=== PATIENT | male | born 1950 | race Caucasian/White ===

== ENCOUNTER → 2016-03-03 | Day surgery (SDC) | payer OTHER, BC ==
[2016-03-01 13:19] VITALS: BMI 46.0
[~2016-03-03] VITALS: Ht 172.7 cm; Wt 138.6 kg
[~2016-03-03] MED LIST: AMLO-114 PO; ASPCH81X PO; CLON0.3T PO; CRG125 PO; FRS/80 PO; GLC500 PO; HYDR-4717 PO; HydrALAZINE HCL 20 MG/ML VIAL ONE; INSUINJ8 SC; KETAMINE HCL INJ 50 MG/ML 10 ML VIAL ONE; LABETALOL HCL IV 5 MG/ML 20ML ONE; LIDOCAINE HCL 2% 2 ML VIAL (20MG/ML) ONE; LISI20TA3 PO; METF1TAB53 PO; MISCTAB78 PO; NVLGI SC; PRLSR20 PO; PROPOFOL IV EMULSION 10 MG/ML 20 ML VIAL IV ONE; SIMV20TA2 PO; SODIUM CHLORIDE 0.9% 500ML 500 ML IV ONE; SODIUM CHLORIDE 0.9% INJ 10 ML VIAL ONE; TERA1CAP63 PO
[2016-03-03 08:14] VITALS: Ht 172.7 cm; Wt 138.6 kg
--- NOTE | 2016-03-03 08:40 | Endo History and Physical ---
History & Physical Date of Service: Mar 03, 2016. Chief Complaint: iron def anemia Referring Physician: Dr. Falcon History of Present Illness Occult iron deficiency anemia, for EGD and colonoscopy. Past Medical History Diabetes, Male Genitourinary Prob., Reflux, High Cholesterol, Sleep Apnea, Heart Disease, Hypertension Past Surgical History Hx Cardiac Surgery: No Hx Internal Defibrillator: No Hx Pacemaker: No Hx Abdominal Surgery: Yes (HERNIA REPAIR) Hx of Implantable Prosthesis: No Hx Post-Op Nausea and Vomiting: No Hx Cancer Surgery: No Hx Thoracic Surgery: No Hx Orthopedic: No Hx Urinary Tract Surgery: Yes (TURP) Family History Polyp Social History Smoking Status: Former Smoker Hx Substance Use: No Hx Alcohol Use: No Allergies Coded Allergies: Finasteride (Verified Allergy, Unknown, DIFFICULT BREATHING AND WATER RETENTION, 03/03/16) Current Medications Reported Home Medications Medications Dose Route/Sig Max Daily Dose Days Date Category Osteo Bi-Flex Advanced Do ([facility] Products) 1 Tab Tab 1 Tab PO BID 03/01/16 Reported Catapres (Clonidine Hcl) 0.3 Mg Tab 0.3 Mg PO BID 03/01/16 Reported Apresoline (Hydralazine Hcl) 50 Mg Tab 50 Mg PO BID 03/01/16 Reported Prinivil (Lisinopril) 20 Mg Tab 2 Tabs PO QAM 03/01/16 Reported Lasix (Furosemide) 80 Mg Tab 80 Mg PO QAM 03/01/16 Reported Zocor (Simvastatin) 20 Mg Tab 20 Mg PO HS 01/03/15 Reported Novolin-N (Insulin Human NPH) Susp 50 Units SC BID 01/03/15 Reported Glucophage Ext Rel (Metformin Hcl) 1,000 Mg Tab 1,500 Mg PO QAM 04/12/13 Reported Aspirin Chewable (Aspirin) 81 Mg Chew 81 Mg PO QAM 04/12/13 Reported Hytrin (Terazosin HCl) 10 Mg Cap 10 Mg PO HS 04/12/13 Reported Novolog (Insulin Aspart) Inj 5-15 Units SC BID 04/12/13 Reported Coreg * (Carvedilol) 12.5 Mg Tab 12.5 Mg PO BID 03/03/11 Reported Glucophage * (Metformin HCl) 1,000 Mg Tab 1,000 Mg PO QPM 09/23/07 Reported Prilosec (Omeprazole) 20 Mg Capcr 20 Mg PO HS 09/23/07 Reported Norvasc (Amlodipine Besylate) 10 Mg Tab 10 Mg PO QAM 09/23/07 Reported Vital Signs Weight (Kilograms): 138.64 Height (Feet): 5 Height (Inches): 8 Date Time Temp Pulse Resp B/P Pulse Ox O2 Delivery O2 Flow Rate FiO2 03/03/16 08:28 36.6 65 20 184/91 96 Room Air Physical Exam General Appearance: WD/WN, no apparent distress, + obese Respiratory/Chest: Auscultation: breath sounds normal, no wheezing Cardiovascular: Heart Auscultation: RRR, no murmurs Abdomen: Inspection & Palpation: soft, no tenderness, guarding & rebound Assessment and Plan Cleared for EGD and colonoscopy
--- NOTE | 2016-03-03 08:58 | GI REPORT ---
Procedure Date: 03/03/2016 8:47 AM Procedure: Upper GI endoscopy Indications: Iron deficiency anemia Medicines: Monitored Anesthesia Care Complications: No immediate complications. Estimated blood loss: None. Estimated Blood Loss: Estimated blood loss: none. Procedure: Pre-Anesthesia Assessment: - Prior to the procedure, a History and Physical was performed, and patient medications, allergies and sensitivities were reviewed. The patient's tolerance of previous anesthesia was reviewed. - ASA Grade Assessment: III - A patient with severe systemic disease. After obtaining informed consent, the endoscope was passed under direct vision. Throughout the procedure, the patient's blood pressure, pulse, and oxygen saturations were monitored continuously. The scope was introduced through the mouth, and advanced to the third part of the duodenum. Small bowel enteroscopy was deemed necessary. The upper GI endoscopy was accomplished with ease. The patient tolerated the procedure well. Findings: The upper third of the esophagus, middle third of the esophagus and lower third of the esophagus were normal. The Z-line was regular and was found 44 cm from the incisors. The entire examined stomach was normal. Biopsies were taken with a cold forceps for Helicobacter pylori testing. The examined duodenum was normal. Biopsies for histology were taken with a cold forceps for evaluation of celiac disease. Verification of patient identification for the specimens was done by the physician and nurse using the patient's name, date and medical record number. Impression: - Normal upper third of esophagus, middle third of esophagus and lower third of esophagus. - Z-line regular, 44 cm from the incisors. - Normal stomach. Biopsied. - Normal examined duodenum. Biopsied. Recommendation: - Perform a colonoscopy today. Jesus Ramos M.D. Jesus Ramos MD 03/03/2016 8:57:46 AM This report has been signed electronically. Note Initiated On: 03/03/2016 8:47 AM
--- NOTE | 2016-03-03 09:43 | GI REPORT ---
Procedure Date: 03/03/2016 8:54 AM Procedure: Colonoscopy Indications: Iron deficiency anemia Medicines: Monitored Anesthesia Care Complications: No immediate complications. Estimated blood loss: None. Estimated Blood Loss: Estimated blood loss: none. Procedure: Pre-Anesthesia Assessment: - Prior to the procedure, a History and Physical was performed, and patient medications, allergies and sensitivities were reviewed. The patient's tolerance of previous anesthesia was reviewed. - ASA Grade Assessment: III - A patient with severe systemic disease. After I obtained informed consent, the scope was passed under direct vision. Throughout the procedure, the patient's blood pressure, pulse, and oxygen saturations were monitored continuously. The Scope was introduced through the anus and advanced to the terminal ileum, with identification of the appendiceal orifice and IC valve. The colonoscopy was performed with ease. The patient tolerated the procedure well. The quality of the bowel preparation was excellent. Findings: Multiple medium-mouthed diverticula were found in the sigmoid colon. Impression: - Diverticulosis in the sigmoid colon. - No specimens collected. - The colon was otherwise normal to the terminal ileum with retroflexed views of the colon and terminal ileum. Recommendation: - Consider video capsule endoscopy. - Discharge patient to home (with escort). Jesus Ramos M.D. Jesus Ramos MD 03/03/2016 9:42:50 AM This report has been signed electronically. Note Initiated On: 03/03/2016 8:54 AM
--- NOTE | 2016-03-03 09:46 | Discharge Instructions ---
Endoscopy Patient Instructions Date / Procedure(s) Performed Mar 03, 2016. Colonoscopy, EGD Allergy Information Coded Allergies: Finasteride (Verified Allergy, Unknown, DIFFICULT BREATHING AND WATER RETENTION, 03/03/16) Discharge Date / Findings Mar 03, 2016. Diverticulosis. Normal upper endoscopy. Medication Instructions Stopped Medication(s): Didn't take any medications Restart Stopped Medication(s): Resume all medications today. Provider Instructions Activity Restrictions - No exercising or heavy lifting for 24 hours. - Do not drink alcohol the day of the procedure. - Do not drive a car or operate machinery until the day after the procedure. - Do not make any important decisions or sign important papers in 24 hours after the procedure. Following Day: - Return to full activity which may include returning to work/school. Diet Start your diet with liquids and light foods (jello, soup, juice, toast). Then eat your usual diet if not nauseated. Treatment For Common After Affects For mild abdominal pain, bloating, or excessive gas: - Rest - Eat lightly - Lie on right side Follow-Up Information Follow-up with Dr. Falcon as scheduled Anesthesia Information What You Should Know You have had a procedure that required some medicine to reduce anxiety and discomfort. This treatment is called moderate sedation. After receiving the treatment, you may be sleepy, but you will be able to breathe on your own. The effects of the treatment may last for several hours. Follow these instructions along with Activity/Diet recommendations noted above: * Do NOT do anything where dizziness or clumsiness would be dangerous. * Rest quietly at home today, then you can be up and about tomorrow. * Have a responsible person stay with you the rest of today. * You may have had an I.V. today. If so, you may take the dressing off later today. Recommendations Call your doctor if: * Trouble breathing * Continuous vomiting for more than 24 hours * Temperature above 101 degrees * Severe abdominal pain or bloating * Pain not relieved by pain medicine ordered * There is increased drainage or redness from any incision * A large amount of rectal bleeding greater than 2-3 tablespoons. (If you had a polyp/s removed or have hemorrhoids, a small amount of blood - from the rectum is to be expected.) * You have any unanswered questions or concerns. IN THE EVENT OF A SERIOUS EMERGENCY, GO TO THE NEAREST EMERGENCY ROOM Your discharge instructions were prepared by provider Jesus Ramos. Patient Instructions Signature Page Edmarserena Trinidadwver Patient (or Guardian) Signature/Date: I have read and understand the instructions given to me by my caregivers. Caregiver/RN/Doctor Signature/Date: The above-named patient and/or guardian has received patient instructions on this date. + Original Patient Signature Page (only) stays with chart. Please make copy for patient.
[2016-03-03 10:25] VITALS: BP 175/84; PULSE 62; O2SAT 95
--- NOTE | 2016-03-03 10:50 | Anesthesiology Progress Note ---
Anesthesia Post Op Note Date & Time Mar 03, 2016 at 10:42 Vital Signs Pain Intensity: 0 Vital Signs Past 12 Hours Date Time Temp Pulse Resp B/P Pulse Ox O2 Delivery O2 Flow Rate FiO2 03/03/16 10:25 62 16 175/84 95 Room Air 03/03/16 10:15 62 16 165/81 97 Room Air 03/03/16 10:05 60 16 197/91 97 Room Air 03/03/16 09:51 67 16 188/91 97 Room Air 03/03/16 09:36 71 16 145/43 97 Room Air 03/03/16 08:28 36.6 65 20 184/91 96 Room Air Notes Mental Status: alert / awake / arousable, participated in evaluation Pt Amnestic to Procedure: Yes Nausea / Vomiting: adequately controlled Pain: adequately controlled Airway Patency, RR, SpO2: stable & adequate BP & HR: stable & adequate Hydration State: stable & adequate Anesthetic Complications: no major complications apparent The ptaient is a 65 y/o male with multiple medical problems including HTN and DM who is s/p EGD/colonoscopy with Dr. Ramos. The patient's BP on arrival was elevated at 184/91. He is on multiple antihypertensives and did not take any of them this morning. His BP at home runs in the 150s-160s systolic and his PMD has been working for some time to adjust his medications. The patient did well during the procedure and received 10mg IV Labetalol for his BP. In recovery the patient's BP was initially elevated at 188/91 HR 60s. He took all of his oral antihypertensives from home in recovery. His BP prior to discharge improved to the 160s-170s/80s. He has a BP cuff at home and will check his BP again later today. He was instructed to go to the ED if his BP becomes elevated to the high 180s or greater systolic or diastolic greater that 100. He was also instructed to go to the ED with any chest pain, shortness of breath, lightheaded or dizziness or severe headache. He understands and agrees.
== END | disposition home or self-care (01) ==
LOC: C.GI 07:42
PROVIDERS: ATTEND Internal Medicine Gastroenterology
DX: D50.9 Iron deficiency anemia, unspecified (principal); K57.30 Diverticulosis of large intestine without perforation or abscess without bleeding; K21.9 Gastro-esophageal reflux disease without esophagitis; E11.9 Type 2 diabetes mellitus without complications; E78.00 Pure hypercholesterolemia, unspecified; G47.30 Sleep apnea, unspecified; I10 Essential (primary) hypertension; I51.9 Heart disease, unspecified; Z98.890 Other specified postprocedural states; Z87.891 Personal history of nicotine dependence; Z88.8 Allergy status to other drugs, medicaments and biological substances; Z79.82 Long term (current) use of aspirin

== ENCOUNTER → 2017-05-26 | Outpatient (CLI) | payer OTHER ==
[~2017-05-26] VITALS: Ht 172.7 cm; Wt 143.5 kg
[~2017-05-26] MED LIST changes: -HydrALAZINE HCL 20 MG/ML VIAL ONE; -KETAMINE HCL INJ 50 MG/ML 10 ML VIAL ONE; -LABETALOL HCL IV 5 MG/ML 20ML ONE; -LIDOCAINE HCL 2% 2 ML VIAL (20MG/ML) ONE; -PROPOFOL IV EMULSION 10 MG/ML 20 ML VIAL IV ONE; -SODIUM CHLORIDE 0.9% 500ML 500 ML IV ONE; -SODIUM CHLORIDE 0.9% INJ 10 ML VIAL ONE
[2017-05-26 16:00] VITALS: BP 181/75; PULSE 71; Ht 172.7 cm; Wt 143.5 kg
== END | disposition home or self-care (01) ==
LOC: C.NEUR 14:32
PROVIDERS: ATTEND Internal Medicine Pulmonary Disease
DX: G47.33 Obstructive sleep apnea (adult) (pediatric) (principal); E66.01 Morbid (severe) obesity due to excess calories; I49.5 Sick sinus syndrome

== ENCOUNTER → 2017-05-27 | Outpatient (CLI) | payer OTHER ==
--- NOTE | 2017-05-28 04:51 | PAP/PSG TECHNICIAN REPORT ---
[facility] Police Officer Booking Polysomnogram Report Study name: None Report date: 05/28/2017 Study date: 05/27/2017 Referring Physician: Dr. Diego Name: MONSTER VERA Interpreting Physician: Gene Diego D.O. Date of : 1950 [employer] Officer Booking: Mickey Chandler RPSGO. Sex: Male Age: 67 StudyType: PSG Weight: 316 lbs 19.5 inches Height: 67 years, Height 5' 8" Neck Circum: BMI: 48.04 Medications: ATORVASTATIN CALCIUM 40 MG, AMLODIPINE BESYLATE 10 MG, ASPIRIN 81 MG, CLONIDINE HCL 0.3 MG, COREG 12.5 MG, FERRETTS 325, FIORICET, FUROSEMIDE 80 MG, HYDRALAZINE HCL 100 MG, LISINOPRIL 20 MG, METFORMIN HCL 1000 MG, PRILOSEC OTC 20 MG, TERAZOSIN HCL 10 MG Patient History PATIENT HAD A SLEEP STUDY DONE AROUND 10 YEARS AGO AND WAS POSITIVE FOR FLETCHER. HE TRIED CPAP BUT WASN'T ABLE TO TOLERATE IT AT THAT TIME. HE CHOSE TO HAVE AN UPPP SURGERY. HE NEVER GOT RETESTED. HE HAS GAINED AT LEAST 30LBS SINCE THEN. HE IS HERE TODAY FOR AN EVALUATION FOR FLETCHER. ESS = 5 RM 8 Parameters Monitored NPSG: E1-M2, E2-M1, Fp1-M2, Fp2-M1, F3-M2, F4-M2, F4-M1, C3-M2, C4-M2, C4-M1, O1-M2, O2-M2, O2-M1, T3-M2, T4-M1, P3-M2, P4-M1, CHIN1, CHIN2, HR, EKG, Legs, PFLOW, SNOR, FLOW, CFLOW, Tidal Volume, THOR, ABDO, SpO2, PLTH, CPRESS, ETCO2 Wave, ETCO2, pH Sleep Architecture Sleep Stages Time at Lights Off 10:19:12 PM STAGES Time (min.) TST (%) Time at Lights On 4:24:12 AM Wake 132.5 -- Total Recording Time (TRT) 365.50 min. N1 21.5 9 Total Sleep Period (TSP) 312.0 min. N2 184.5 79 Total Sleep Time (TST) 232.5min. N3 0.0 0 Awake Time 133.0 min. REM 26.5 11 Wake after Sleep Onset 105.0 min. Sleep Efficiency (SE) 64 % Sleep Onset Latency (DAVID) 27.5 min. Number of Stage 1 Shifts None Awakenings 31 Stage Changes 90 Number of REM periods 2 REM 26.5 11 REM Latency 276.5 min. NREM 206.0 89 Body Position Analysis Supine Right Left Side Prone Vertical Total Sleep Time (min.) 365.0 0.0 0.0 0.00 0.0 0.0 Total Sleep Time (%) 100% 0% 0% 0 0% N/A% Total Sleep Time REM (min.) 26.5 0.0 0.0 None 0.0 0.0 Total Sleep Time NREM (min.) 206.0 0.0 0.0 None 0.0 0.0 Intermittent Wake (min.) 132.5 0.0 0.0 None 0.0 0.0 Total Sleep Period (%) 100% None None None None None Arousals Myoclonus (PLM) * Events Count Index Events Count Index Spontaneous 104 27 Events Awake (PLMW) 67 30.3 Respiratory 13 3.4 Events Asleep w/ Arousal (PLMA) 4 1.0 PLM 4 1 Events Asleep w/o Arousal (PLMS) 63 16.3 Snoring 0 0 Total Asleep 67 17.3 Total 121 31 Total 134 22 Respiratory Analysis * CA OA MA CH H RERA Total Count 0 1 0 0 82 7 83 Index 0.0 0.3 0.0 0 21.2 2 23.2 Mean Duration 0.0 20.7 0.0 0.00 18.3 14.7 18.0 Longest Duration 0.0 20.7 0.0 0.00 0.0 17.2 37.4 Respiratory Event Summary Total Supine ~Supine Right Left Prone REM NREM Apneas Count 1 1 N/A N/A N/A N/A 1 0 Index 0.3 0 N/A N/A N/A N/A 2 0 Hypopneas (4% Desat) Count 82 82 N/A N/A N/A N/A 15 67 Index 21.2 21.2 N/A N/A N/A N/A 34.0 19.5 Apneas & All Hypopneas Count 83 83 N/A N/A N/A N/A 16 67 Index 21.4 21 N/A N/A N/A N/A 36.2 19.5 Respiratory Events (Battery Charger+All Hyp+RERA) Count 83 90 N/A N/A N/A N/A 16 67 Index 23.2 23 N/A N/A N/A N/A 36.2 21.6 Respiratory Related Arousal Count 13 90 N/A N/A N/A N/A 1 12 Index 3.4 3 N/A N/A N/A N/A 2 3 Snoring Analysis Supine Right Left Prone REM NREM Total Snore duration 0.3 min Snores count 5 N/A N/A N/A 0 5 5 Snore mean duration 3.4 Sec Snores index 1 N/A N/A N/A 0.0 1.5 1.3 TST with snoring (%) 0.1% Desaturation Event Summary: Minimum %SpO2 Event Count Mean/Min/Max Duration(sec.) Desaturation Index % Time In Bed > 90 106 38.1 / 8.5 / 60.6 30.9 58.1 86 - 90 21 34.1 / 13.3 / 55.5 8.8 40.6 81 - 85 1 16.5 / 16.5 / 16.5 20.5 0.8 76 - 80 0 N/A 0.0 0.4 71 - 75 0 N/A 0.0 0.0 66 - 70 0 N/A 0.0 0.0 61 - 65 0 N/A 0.0 0.0 56 - 60 0 N/A 0.0 0.0 51 - 55 0 N/A 0.0 0.0 < 50 0 N/A 0.0 0.0 Total REM NREM Awake <50% 0.0 min. 0.0 min. 0.0 min. 0.0 min. 51 - 60% 0.0 min. 0.0 min. 0.0 min. 0.0 min. 61 - 70% 0.0 min. 0.0 min. 0.0 min. 0.0 min. 71 - 80% 1.5 min. 1.2 min. 0.4 min. 0.0 min. 81 - 90% 146.8 min. 10.2 min. 119.2 min. 17.3 min. 91 - 100% 205.6 min. 15.1 min. 86.4 min. 104.1 min. Average 91 90 90 92 Minimum SpO2 75 75 76 86 Desaturation Event Index 18.9 31.7 20.7 13.6 # Desat. Events below 89% 54 10 42 2 Time(%) with Saturation below 89% 10.4 1.5 8.2 0.8 Time(min.) with Saturation below 89% 36.8 5.1 29.0 2.7 Time (mins) REM (mins) NREM (mins) % of TST SpO2 Below 90% 84 13 N71 33.5 SpO2 Below 88% 35 0 0 5 Heart Rate Analysis Min (bpm) Max (bpm) Average (bpm) Awake 56 127 62 NREM 50 67 58 REM 50 67 60 Overall 50 67 59 Supplemental O2 Values Minimum O2 level: None Value Start Time End Time Police Officer Booking Comments Mr. Vera slept in the supine position. PVC's and PAC's noted. Leg movements noted. No bruxism noted. Snoring was noted and scored as a 1 on a scale of 1 through 5. (0=no snoring, 5=snoring loud enough to be heard through a closed door or down the rivas way) Mr. Vera awoke to use the restroom 2 times during the night. Mr. Vera stated I slept as well as I do when I am in my own bed. The final report will be interpreted and signed by a sleep physician. The completed physician report will then be placed in the patient medical record. Therapy (cm H2O) 0 TIB (min.) 365.0 TST (min.) 232.5 Sleep Onset (min.) 27.5 REM Onset From Sleep (min.) 276.5 Sleep Efficiency % 64 Wakefulness (%) 36 Wakefulness (min.) 133.0 NREM 1 (%) 9 NREM 1 (min.) 21.5 NREM 2 (%) 79 NREM 2 (min.) 184.5 NREM 3 (%) 0 NREM 3 (min.) 0.0 REM (%) 11 REM (min.) 26.5 # Arousals 121 Arousal Index 31 # Snore 5 Snore Index 1.3 AHI 21.4 AHI Supine 21 AHI Non-Supine N/A NREM AHI 19.5 REM AHI 36.2 RDI 23.2 # Obstructive Apnea 1 # Central Apnea 0 # Mixed Apnea 0 # Hypopneas 82 RERAs 7 Total Respiratory Events 92 Time Below SpO2 89% (min.) 34.1 Mean NREM SpO2 (%) 90 Mean REM SpO2 (%) 90 Mean Sleep SpO2 (%) 90 Min NREM SpO2 (%) 76 Min REM SpO2 (%) 75 Position Supine (min.) 365.0 Position Non-supine (min.) 0.0 LM Index Sleep 17.3 LM Index NREM 19.2 LM Index REM 2.3 Mean Heart Rate (bpm) 59 Min Heart Rate (bpm) 50
--- NOTE | 2017-06-01 21:49 | POLYSOMNOGRAPH REPORT ---
CLINICAL DATA: The patient is a 67-year-old male. Years ago he was diagnosed with sleep apnea, but he did not tolerate nasal CPAP therapy. In 2011, he had a UPPP done. Recently he had a cafeteria monitor in place and was reported to have episodes of tachybrady syndrome. He was having significant pauses. These were occurring during sleep. Sleep apnea was suspected. He completed the [place] sleepiness scale and had a score of 5. This was an in-lab overnight polysomnography. SLEEP ARCHITECTURE: The total sleep period was 312 minutes. The total sleep time was 232.5 minutes. The sleep efficiency was reduced to 64%. The sleep latency was increased to 27.5 minutes. Wake after sleep onset was increased to 105 minutes. The REM latency was prolonged to 276.5 minutes. Sleep consisted of stage N1 9%, stage N2 79%, stage N3 0%, stage REM 11%. AROUSAL DATA: The patient had 121 arousals including 104 spontaneous arousals, 13 respiratory arousals, and 4 PLM arousals. The arousal index was 31. PLM DATA: The patient had 67 periodic limb movements of sleep for a PLM index of 17.3. There were 4 arousals, associated with limb movements for a PLM arousal index of 1. EKG: The underlying cardiac rhythm was normal sinus. The cardiac rates ranged from 50-67 beats per minute. The average heart rate was 59 beats per minute. PACs and PVCs were noted. There was 1 brief episode of 6-beat SVT during epoch 652. No significant episodes of bradycardia were noted. RESPIRATORY DATA: The patient had a total of 83 respiratory events including 1 obstructive apnea and 82 hypopneas. Hypopneas were scored according to the 4% desaturation rule. The longest apnea was 20.7 seconds. The mean duration of the hypopneas was 18.3 seconds. There were 7 RERAs. The apnea hypopnea index was 21.4 events per hour. This reflects moderate obstructive sleep apnea. OXIMETRY DATA: The average saturation for the night was 91%. The minimum saturation was 75%. There was a total of 36.8 minutes with saturations less than 89%. MEDICARE NURSE COMMENTS: The patient slept in the supine position. PVCs and PACs noted. Leg movements noted. No bruxism noted. Snoring was noted and scored as a 1 on a scale of 1 through 5. The patient awakened to use the restroom 2 times during the night. IMPRESSION: 1. Moderate obstructive sleep apnea. 2. Cardiac arrhythmia - Premature ventricular contractions and premature atrial contractions. COMMENTS: Patient had abnormal sleep architecture. The sleep efficiency was lower than normal. The REM latency was very prolonged. He had a significant number of spontaneous arousals. This may correlate with upper airway resistance. He had moderate sleep apnea as assessed by the apnea-hypopnea index. There were transient intermittent desaturations. There was no severe bradyarrhythmias. No pauses were noted. RECOMMENDATIONS: 1. It is advised that the patient again be given a trial of nasal CPAP or nasal BiPAP. In light of his problems in the past, it would be advised that this be done in the sleep lab rather than treating with auto CPAP. 2. Weight loss is advised in light of the severe elevation of body mass index of 48.04. 3. The patient spent the entire night in the supine position. If possible, it would be advised that he avoid sleeping supine where there is typically more respiratory events.
== END | disposition home or self-care (01) ==
LOC: C.NEUR 20:00
PROVIDERS: ATTEND Internal Medicine Pulmonary Disease
DX: G47.33 Obstructive sleep apnea (adult) (pediatric) (principal)

== ENCOUNTER → 2017-06-19 | Outpatient (CLI) | payer OTHER ==
--- NOTE | 2017-06-20 05:35 | PAP/PSG TECHNICIAN REPORT ---
[facility] [employer] Polysomnogram Report Study name: None Report date: 06/20/2017 Study date: 06/19/2017 Referring Physician: Dr. Diego Name: MONSTER VERA Interpreting Physician: Gene Diego D.O. 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 Sex: Male Age: 67 StudyType: PSG PAP Weight: 316 lbs 19.5 inches Height: 67 years, Height 5' 8" Neck Circum: BMI: 48.04 Medications: ATORVASTATIN CALCIUM 40 MG, AMLODIPINE BESYLATE 10 MG, ASPIR-81 MG, CLONIDINE HCL 0.3 MG, COREG 12.5 MG, FERRETTS 325 MG, FIORICET 50-300-40 MG, FUROSEMIDE 80 MG, HYDRALAZINE HCL 100 MG, LISINOPRIL 20 MG, METFORMIN HCL 1000 MG, NOVOLOG, PRILOSEC OTC 20 MG, TERAZOSIN HCL 10 MG Patient History PATIENT HAS HISTORY OF [facility] AND [facility]. HE TRIED CPAP MANY YEARS AGO WASNT ABLE TO TOLERATE CPAP. HE HAD DIFFICULTY EXHALING WITH CPAP. HE RECENTLY HAD A NPSG DONE AND WAS POSITIVE FOR FLETCHER. HE IS HERE TODAY FOR A CPAP TITRATION. RM 6 Parameters Monitored NPSG: E1-M2, E2-M1, Fp1-M2, Fp2-M1, F3-M2, F4-M2, F4-M1, C3-M2, C4-M2, C4-M1, O1-M2, O2-M2, O2-M1, T3-M2, T4-M1, P3-M2, P4-M1, CHIN1, CHIN2, HR, EKG, Legs, PFLOW, SNOR, FLOW, CFLOW, Tidal Volume, THOR, ABDO, SpO2, PLTH, CPRESS, ETCO2 Wave, ETCO2, pH Sleep Architecture Sleep Stages Time at Lights Off 10:12:48 PM STAGES Time (min.) TST (%) Time at Lights On 5:13:18 AM Wake 218.0 -- Total Recording Time (TRT) 421.00 min. N1 26.0 13 Total Sleep Period (TSP) 381.0 min. N2 100.5 50 Total Sleep Time (TST) 202.5min. N3 0.0 0 Awake Time 218.5 min. REM 76.0 38 Wake after Sleep Onset 191.0 min. Sleep Efficiency (SE) 48 % Sleep Onset Latency (DAVID) 27.0 min. Number of Stage 1 Shifts None Awakenings 39 Stage Changes 104 Number of REM periods 2 REM 76.0 38 REM Latency 241.5 min. NREM 126.5 62 Body Position Analysis Supine Right Left Side Prone Vertical Total Sleep Time (min.) 420.5 0.0 0.0 0.00 0.0 0.0 Total Sleep Time (%) 100% 0% 0% 0 0% N/A% Total Sleep Time REM (min.) 76.0 0.0 0.0 None 0.0 0.0 Total Sleep Time NREM (min.) 126.5 0.0 0.0 None 0.0 0.0 Intermittent Wake (min.) 218.0 0.0 0.0 None 0.0 0.0 Total Sleep Period (%) 100% None None None None None Arousals Myoclonus (PLM) * Events Count Index Events Count Index Spontaneous 50 15 Events Awake (PLMW) 270 74.3 Respiratory 17 4.7 Events Asleep w/ Arousal (PLMA) 14 4.1 PLM 12 4 Events Asleep w/o Arousal (PLMS) 140 41.5 Snoring 2 1 Total Asleep 154 45.6 Total 81 24 Total 424 60 Respiratory Analysis * CA OA MA CH H RERA Total Count 6 8 0 0 68 1 82 Index 1.8 2.4 0.0 0 20.1 0 24.6 Mean Duration 14.2 12.7 0.0 0.00 16.0 15.4 15.5 Longest Duration 19.7 15.8 0.0 0.00 0.0 15.4 23.7 Respiratory Event Summary Total Supine ~Supine Right Left Prone REM NREM Apneas Count 14 14 N/A N/A N/A N/A 3 11 Index 4.1 4 N/A N/A N/A N/A 2 5 Hypopneas (4% Desat) Count 68 68 N/A N/A N/A N/A 13 55 Index 20.1 20.1 N/A N/A N/A N/A 10.3 26.1 Apneas & All Hypopneas Count 82 82 N/A N/A N/A N/A 16 66 Index 24.3 24 N/A N/A N/A N/A 12.6 31.3 Respiratory Events (Digital Media Coordinator+All Hyp+RERA) Count 82 83 N/A N/A N/A N/A 16 66 Index 24.6 25 N/A N/A N/A N/A 12.6 31.8 Respiratory Related Arousal Count 17 83 N/A N/A N/A N/A 0 16 Index 4.7 5 N/A N/A N/A N/A 0 8 Snoring Analysis Supine Right Left Prone REM NREM Total Snore duration 0.7 min Snores count 28 N/A N/A N/A 7 21 28 Snore mean duration 1.5 Sec Snores index 8 N/A N/A N/A 5.5 10.0 8.3 TST with snoring (%) 0.3% Desaturation Event Summary: Minimum %SpO2 Event Count Mean/Min/Max Duration(sec.) Desaturation Index % Time In Bed > 90 170 22.1 / 6.0 / 58.8 36.5 70.7 86 - 90 19 18.6 / 8.0 / 43.3 10.4 27.8 81 - 85 0 N/A 0.0 1.5 76 - 80 0 N/A 0.0 0.1 71 - 75 0 N/A 0.0 0.0 66 - 70 0 N/A 0.0 0.0 61 - 65 0 N/A 0.0 0.0 56 - 60 0 N/A 0.0 0.0 51 - 55 0 N/A 0.0 0.0 < 50 0 N/A 0.0 0.0 Total REM NREM Awake <50% 0.0 min. 0.0 min. 0.0 min. 0.0 min. 51 - 60% 0.0 min. 0.0 min. 0.0 min. 0.0 min. 61 - 70% 0.0 min. 0.0 min. 0.0 min. 0.0 min. 71 - 80% 0.3 min. 0.0 min. 0.0 min. 0.3 min. 81 - 90% 115.8 min. 39.9 min. 51.4 min. 24.5 min. 91 - 100% 279.4 min. 36.1 min. 73.0 min. 170.3 min. Average 92 90 91 93 Minimum SpO2 76 81 85 76 Desaturation Event Index 25.1 12.6 35.6 24.5 # Desat. Events below 89% 57 16 20 21 Time(%) with Saturation below 89% 6.1 3.9 1.3 0.8 Time(min.) with Saturation below 89% 24.0 15.5 5.3 3.1 Time (mins) REM (mins) NREM (mins) % of TST SpO2 Below 90% 79 16 N63 24.0 SpO2 Below 88% 14 0 0 6 Heart Rate Analysis Min (bpm) Max (bpm) Average (bpm) Awake 34 300 70 NREM 53 64 57 REM 50 66 58 Overall 50 66 57 Supplemental O2 Values Minimum O2 level: None Value Start Time End Time Freight [employer]cker Comments Mr. Vera slept in the supine position. Irregular EKG noted at times. PAC's noted. Leg movements noted. No bruxism noted. CPAP was initiated at +4 CMH2O and up-titrated to a level of 7 CMH2O. I switched to BIPAP for patient comfort. I started BIPAP at 10/6 and up-titrated to 18/11 due to hypopneas and apneas, which nearly eliminated all respiratory events and snoring. A Respironics Dream Wear full face mask was used during titration Mr. Vera awoke to use the restroom 1 time during the night. Mr. Vera stated I did not sleep as well as I do when I am in my own bed. The final report will be interpreted and signed by a sleep physician. The completed physician report will then be placed in the patient medical record. Therapy Event: Therapy (cm H20) 4 5 6 7 10/6 11/7 Total Time at Pressure (min.) 35.2 63.1 25.0 22.4 16.2 9.7 TST at Pressure (min.) 7.7 10.1 4.0 1.4 5.2 4.7 # Periods 1 1 1 1 1 1 Sleep Onset (min.) 27.0 0.0 0.0 0.0 0.0 0.0 REM Onset (min.) N/A N/A N/A N/A N/A N/A Sleep Efficiency % 21 16 16 6 32 48 Wakefulness (%) 78.2 84.0 84.0 93.9 67.9 51.7 Wakefulness (min.) 27.5 53.0 21.0 21.0 11.0 5.0 NREM 1 (%) 2.8 5.2 14.0 6.1 22.8 17.2 NREM 1 (min.) 1.0 3.3 3.5 1.4 3.7 1.7 NREM 2 (%) 18.9 10.8 2.0 0.0 9.3 31.1 NREM 2 (min.) 6.7 6.8 0.5 0.0 1.5 3.0 NREM 3 (%) 0.0 0.0 0.0 0.0 0.0 0.0 NREM 3 (min.) 0.0 0.0 0.0 0.0 0.0 0.0 REM (%) 0.0 0.0 0.0 0.0 0.0 0.0 REM (min.) 0.0 0.0 0.0 0.0 0.0 0.0 # Arousals 5 6 5 2 7 2 Arousal Index 39.2 35.6 75.0 87.2 80.8 25.7 # Snore 0 0 0 0 1 0 Snore Index 0.0 0.0 0.0 0.0 11.5 0.0 AHI 54.9 35.6 105.0 43.6 115.5 77.1 AHI Supine 54.9 35.6 105.0 43.6 115.5 77.1 AHI Non-Supine N/A N/A N/A N/A N/A N/A NREM AHI 54.9 35.6 105.0 43.6 115.5 77.1 REM AHI N/A N/A N/A N/A N/A N/A RDI 54.9 41.5 105.0 43.6 115.5 77.1 # Obstructive 0 1 1 0 1 2 # Central Ap 0 0 0 1 4 1 # Mixed 0 0 0 0 0 0 # Hypopneas 7 5 6 0 5 3 RERAS 0 1 0 0 0 0 Total Respiratory Events 7 7 7 1 10 6 Time Below SpO2 89.00% (min.) 0.8 0.8 0.4 0.0 0.0 0.2 Mean NREM SpO2 (%) 91 91 92 93 94 93 Mean REM SpO2 (%) N/A N/A N/A N/A N/A N/A Mean Sleep SpO2 (%) 91 91 92 93 94 93 Min NREM SpO2 (%) 87 87 87 89 89 88 Min REM SpO2 (%) N/A N/A N/A N/A N/A N/A Position Supine (min.) 7.7 10.1 4.0 1.4 5.2 4.7 Position Non-supine (min.) 0.0 0.0 0.0 0.0 0.0 0.0 LM Index Sleep 7.8 23.7 30.0 130.8 69.3 25.7 LM Index NREM 7.8 23.7 30.0 130.8 69.3 25.7 LM Index REM N/A N/A N/A N/A N/A N/A Mean Heart Rate (bpm) 60 59 58 59 58 56 Min Heart Rate (bpm) 58 57 56 57 54 53 Therapy (cm H20) 12/8 13/8 14/8 15/9 16/9 18/11 Total Time at Pressure (min.) 22.0 61.4 16.2 47.9 31.8 69.6 TST at Pressure (min.) 13.5 24.9 13.7 28.4 31.8 57.1 # Periods 1 1 1 1 1 1 Sleep Onset (min.) 0.0 0.0 0.0 0.0 0.0 0.0 REM Onset (min.) N/A N/A 13.6 0.0 22.0 0.0 Sleep Efficiency % 61 40 84 59 100 82 Wakefulness (%) 38.7 59.4 15.4 40.7 0.0 18.0 Wakefulness (min.) 8.5 36.5 2.5 19.5 0.0 12.5 NREM 1 (%) 9.1 5.7 6.2 10.4 0.0 0.0 NREM 1 (min.) 2.0 3.5 1.0 5.0 0.0 0.0 NREM 2 (%) 52.2 34.9 62.2 35.6 69.0 0.0 NREM 2 (min.) 11.5 21.4 10.1 17.0 22.0 0.0 NREM 3 (%) 0.0 0.0 0.0 0.0 0.0 0.0 NREM 3 (min.) 0.0 0.0 0.0 0.0 0.0 0.0 REM (%) 0.0 0.0 16.2 13.3 31.0 82.0 REM (min.) 0.0 0.0 2.6 6.4 9.9 57.1 # Arousals 11 14 5 13 10 1 Arousal Index 49.0 33.7 21.8 27.5 18.8 1.1 # Snore 5 5 1 8 6 2 Snore Index 22.3 12.0 4.4 16.9 11.3 2.1 AHI 31.2 26.5 30.6 21.1 17.0 1.1 AHI Supine 31.2 26.5 30.6 21.1 17.0 1.1 AHI Non-Supine N/A N/A N/A N/A N/A N/A NREM AHI 31.2 26.5 16.2 21.8 0.0 N/A REM AHI N/A N/A 91.1 18.8 54.6 1.1 RDI 31.2 26.5 30.6 21.1 17.0 1.1 # Obstructive 0 0 1 0 2 0 # Central Ap 0 0 0 0 0 0 # Mixed 0 0 0 0 0 0 # Hypopneas 7 11 6 10 7 1 RERAS 0 0 0 0 0 0 Total Respiratory Events 7 11 7 10 9 1 Time Below SpO2 89.00% (min.) 0.1 0.3 1.7 7.4 4.8 4.3 Mean NREM SpO2 (%) 92 91 91 91 90 N/A Mean REM SpO2 (%) N/A N/A 87 87 89 90 Mean Sleep SpO2 (%) 92 91 90 90 90 90 Min NREM SpO2 (%) 88 88 88 85 87 N/A Min REM SpO2 (%) N/A N/A 81 84 81 84 Position Supine (min.) 13.5 24.9 13.7 28.4 31.8 57.1 Position Non-supine (min.) 0.0 0.0 0.0 0.0 0.0 0.0 LM Index Sleep 26.7 62.6 61.2 12.7 148.8 5.3 LM Index NREM 26.7 62.6 75.7 16.3 213.1 N/A LM Index REM N/A N/A 0.0 0.0 6.1 5.3 Mean Heart Rate (bpm) 57 57 57 57 56 58 Min Heart Rate (bpm) 53 54 54 53 50 53
== END | disposition home or self-care (01) ==
LOC: C.NEUR 20:00
PROVIDERS: ATTEND Internal Medicine Pulmonary Disease
DX: G47.33 Obstructive sleep apnea (adult) (pediatric) (principal)

== ENCOUNTER → 2017-10-13 | Outpatient (CLI) | payer OTHER ==
[~2017-10-13] VITALS: Ht 172.7 cm; Wt 136.9 kg
[~2017-10-13] MED LIST changes: -AMLO-114 PO; +AMLO10TA3 PO
[2017-10-13 16:03] VITALS: BP 152/63; PULSE 73; Ht 172.7 cm; Wt 136.9 kg
== END | disposition home or self-care (01) ==
LOC: C.NEUR 15:02
PROVIDERS: ATTEND Physician Assistant
DX: G47.30 Sleep apnea, unspecified (principal)

== ENCOUNTER 2020-08-26 15:23 | Inpatient (IN) ==
[~2020-08-26 15:23] MED LIST changes: -AMLO10TA3 PO; -ASPCH81X PO; -CLON0.3T PO; -CRG125 PO; -FRS/80 PO; -GLC500 PO; -HYDR-4717 PO; -INSUINJ8 SC; -LISI20TA3 PO; -METF1TAB53 PO; -MISCTAB78 PO; -NVLGI SC; -PRLSR20 PO; -SIMV20TA2 PO; +SODIUM BICARB 8.4% INJ 50 MEQ/50 ML SYR IV ONE; -TERA1CAP63 PO
[2020-08-26 16:04] LABS: Basophils # (auto) 0.01 K/uL (0-0.2); Basophils % (auto) 0.2 %; Eosinophils # (auto) 0.18 K/uL (0-0.5); Eosinophils % (auto) 3.3 %; Hematocrit (blood only) 25.5 % (42-52); Hemoglobin 7.8 g/dL (14.0-18.0); Immature Granulocytes # (auto) 0.01 K/uL (0.00-0.02); Immature Granulocytes % (auto) 0.2 %; Lymphocytes # (auto) 1.22 K/uL (1.2-3.4); Lymphocytes % (auto) 22.2 %; Mean Corpuscular Hemoglobin 31.8 pg (25-34); Mean Corpuscular Hgb Conc 30.6 g/dL (32-36); Mean Corpuscular Volume 104.1 fL (80-100); Mean Platelet Volume 9.8 fL (7.4-10.4); Monocytes # (auto) 0.68 K/uL (0.11-0.59); Monocytes % (auto) 12.4 %; Neutrophils % (auto) 61.7 %; Platelet Count 174 K/uL (130-400); RDW Coefficient of Variation 18.1 % (11.5-14.5); RDW Standard Deviation 67.9 fL (36.4-46.3); Red Blood Count 2.45 M/uL (4.7-6.1)
--- NOTE | 2020-08-26 16:05 | Emergency Department Note ---
Impression & Plan CHF (congestive heart failure), Anemia ED Provider Note NAME: MONSTER FERRIS AGE: 70 SEX: M : 1950 ARRIVES VIA: Ambulance INFORMANT: Patient, ED PROVIDER(S): Jesus Rios DO CHIEF COMPLAINT: Shortness of breath HPI: The patient is a 70-year-old male who presented to the emergency department for an evaluation of shortness of breath. The patient has had ongoing worsening shortness of breath over the course the last few months. The patient was seen at the wound care center. The patient has a history of chronic wounds on both lower extremities. While at the wound care center he had significant shortness of breath and was wheezing. They thought that he was having very severe shortness of breath and the patient had vital signs obtained which showed a pulse ox of 88%. The patient was sent directly to the emergency department. He still complains of significant shortness of breath. He denies having any hist ory of CHF. He has had no weight gain or worsening of the swelling of his legs. He does not complain of abdominal pain or chest pain. He does complain of a cough which is nonproductive. The patient has been compliant with all of his usual outpatient medications. He has a remote history of tobacco use. He was given a DuoNeb treatment as well as steroids by the prehospital personnel prior to arrival. ROS: See above HPI for pertinent positives & negatives. A total of 10 systems reviewed and were otherwise negative. PAST MEDICAL HISTORY: See Below PAST SURGICAL HISTORY: See Below FAMILY HISTORY: See Below SOCIAL HISTORY: See Below HOME MEDICATIONS: See Below ALLERGIES: See Below VITALS: See Below PHYSICAL EXAMINATION: GENERAL: The patient is awake and alert. He is mildly anxious appearing but overall comfortable. EYES: The conjunctivae are clear. The pupils are round and reactive. EARS, NOSE, MOUTH AND THROAT: The nose is without any evidence of any deformity. NECK: The neck is nontender and supple. RESPIRATORY: Diminished breath sounds are noted throughout. Conversational dyspnea was appreciated. CARDIOVASCULAR: Regular rate and rhythm was noted to auscultation. Systolic murmur was suggested. GASTROINTESTINAL: The abdomen is soft. Abdomen is nontender. There was an umbilical hernia to palpation which was not incarcerated. MUSCULOSKELETAL/EXTREMITIES: There is no evidence of gross deformity full range of motion is noted in the hips and shoulders. SKIN: Bilateral pedal edema was noted. Skin was warm and dry. Pulses were symmetric in both feet. NEUROLOGIC: Patient is awake alert and oriented x3. MEDICAL DECISION MAKING: The patient is a 70-year-old male who presented to the emergency department for an evaluation of difficulty breathing. The patient had a history and physical exam consistent with CHF. He was treated with Lasix in the emergency department. He also appears to have signs of anemia on laboratory studies. This could be worsening his shortness of breath. I discussed the patient's laboratory and radiographic studies with him. I also [facility] They have agreed to evaluate the patient in the emergency department for further management and disposition. The patient was significantly improved after supplemental oxygen and Lasix. Triage Nursing notes reviewed. Prior medical records reviewed Vital Signs: reviewed and remarkable for hypertension. Differential diagnosis: Reactive airway disease, pneumonia, pneumothorax, COPD, CHF, infections, cardiac ischemia, pulmonary embolism, musculoskeletal, gastrointestinal, as well as other pathologies. ER treatment provided: See below Diagnostics interpreted by me: ECG: EKG was obtained in the emergency department. My interpretation is sinus bradycardia at 57 bpm. Right bundle branch block pattern was noted. Diffuse ST segment abnormalities were noted. Inferior Q waves were appreciated. This was compared to a tracing from December 25, 2010. The right bundle branch block pattern is new compared to the earlier tracing. Cardiac Monitoring: An order was placed for continuous cardiac monitoring. The monitor shows a rate of 65 bpm with sinus rhythm. Laboratory studies: As stated above and show below. Imaging studies: See below Consultation(s): [id number]: I discussed this case with Shara who [facility]. Past Med/Surg History Medical History Acute urinary retention BPH (benign prostatic hyperplasia) CKD (chronic kidney disease) Diabetes Dyslipidemia Fall Gastroesophageal reflux disease Hematuria, gross HTN (hypertension) Insomnia Neuropathy Obesity, Class III, BMI 40-49.9 (morbid obesity) Obstructive sleep apnea of adult RBBB Tachy-jazlyn syndrome Venous insufficiency Surgical History H/O circumcision H/O esophagogastroduodenoscopy H/O inguinal hernia repair History of tonsillectomy and adenoidectomy History of uvulopalatopharyngoplasty Hx of colonoscopy S/P cataract surgery S/P transurethral resection of prostate Family History Sister Crohn's disease Diabetes Mother Diabetes Brother Kidney disease Heart disease Other FH: cataracts Social History Smoking Status: Former smoker Tobacco Type: Cigarettes packs per day: 1; Smoking End Date: 1987; Hx Alcohol Use: No Hx Substance Use: No Preferred Language: [place] Communication Ability: Effective [place] Required: No Beliefs That Will Affect Care: None marital status: Current Living Situation: Spouse How many Children do You have: 2 Other Information That Helps Us Care for You: No Feels Safe at Home: Yes Safety Concerns: Feels Safe At This Time Assistive Devices: Oxygen - Continuous and Walker Allergies Allergies Allergy/AdvReac Type Severity Reaction Status Date / Time No Known Allergies Allergy Verified 08/26/20 14:54 Home Meds Home Medications Medication Instructions Recorded Confirmed albuterol sulfate [ProAir HFA] 1 puff INHALATION QID PRN 08/26/20 08/26/20 aspirin [Aspir-81] 81 mg PO DAILY 08/26/20 08/26/20 atorvastatin 40 mg PO HS 08/26/20 08/26/20 carvedilol 18.75 mg PO BID 08/26/20 08/26/20 cetirizine 5 mg PO DAILY 08/26/20 08/26/20 cholecalciferol (vitamin D3) 25 mcg PO DAILY 08/26/20 08/26/20 clonidine HCl 0.3 mg PO BID 08/26/20 08/26/20 cyanocobalamin (vitamin B-12) 1,000 mcg PO DAILY 08/26/20 08/26/20 finasteride 5 mg PO DAILY 08/26/20 08/26/20 hydralazine 100 mg PO TID 08/26/20 08/26/20 insulin NPH and regular human 0 unit SUBCUT UD 08/26/20 08/26/20 insulin regular human 1 sliding scale dose SUBCUT 08/26/20 08/26/20 USEASDIRECTD iron,carbonyl-vitamin C [Vitron-C] 1 tab PO DAILY 08/26/20 08/26/20 lisinopril 40 mg PO DAILY 08/26/20 08/26/20 magnesium oxide 140 mg PO DAILY 08/26/20 08/26/20 omeprazole 20 mg PO HS 08/26/20 08/26/20 terazosin 5 mg PO DAILY 08/26/20 08/26/20 torsemide 100 mg PO BID 08/26/20 08/26/20 Results & Data (ED) Vital Signs Vital Signs - 24 hr 08/26/20 17:30 08/26/20 18:00 08/26/20 18:30 Temperature Temperature Source Pulse Rate 61 57 L 62 Pulse Rate [Apical] Pulse Rate from SpO2 Sensor 61 53 L 61 Respiratory Rate 19 16 19 Blood Pressure 175/73 H 174/84 H 189/79 H Blood Pressure [Left Arm] Blood Pressure Mean 107 114 115 Blood Pressure Mean [Left Arm] Pulse Oximetry 94 95 96 Oxygen Delivery Method Oxygen Flow Rate 08/26/20 19:00 08/26/20 19:40 Temperature 36.7 C Temperature Source Oral Pulse Rate Pulse Rate [Apical] 64 Pulse Rate from SpO2 Sensor 64 Respiratory Rate 21 20 Blood Pressure 195/86 H Blood Pressure [Left Arm] 193/75 H Blood Pressure Mean 122 Blood Pressure Mean [Left Arm] 114 Pulse Oximetry 98 94 Oxygen Delivery Method Nasal Cannula Oxygen Flow Rate 3 Home Medications Current Medication List: was personally reviewed by me Laboratory Data Attestation: I reviewed the patient's lab results. Result diagrams: 08/27/20 06:34 08/27/20 06:34 Lab Results 08/26/20 08/26/20 08/26/20 Range/Units 15:40 15:40 15:40 WBC 5.50 (4.8-10.8) K/uL RBC 2.45 L (4.7-6.1) M/uL Hgb 7.8 L (14.0-18.0) g/dL Hct 25.5 L (42-52) % MCV 104.1 H (80-100) fL MCH 31.8 (25-34) pg MCHC 30.6 L (32-36) g/dL RDW Std Deviation 67.9 H (36.4-46.3) fL RDW Coeff of Gopal 18.1 H (11.5-14.5) % Plt Count 174 (130-400) K/uL MPV 9.8 (7.4-10.4) fL Immature Gran % (Auto) 0.2 % Neut % (Auto) 61.7 % Lymph % (Auto) 22.2 % [place] % (Auto) 12.4 % Eos % (Auto) 3.3 % Baso % (Auto) 0.2 % Neut # (Auto) 3.40 (1.4-6.5) K/uL Lymph # (Auto) 1.22 (1.2-3.4) K/uL [place] # (Auto) 0.68 H (0.11-0.59) K/uL Eos # (Auto) 0.18 (0-0.5) K/uL Baso # (Auto) 0.01 (0-0.2) K/uL Immature Gran # (Auto) 0.01 (0.00-0.02) K/uL Polychromasia 1+ Anisocytosis Present PT 11.1 (9.0-12.0) Seconds INR 1.1 (0.9-1.1) APTT 25.3 (21.0-31.0) Seconds PTT Ratio 1.0 VBG pH (7.36-7.41) VBG pCO2 (38-50) mmHg VBG pO2 mmHg VBG HCO3 mmol/L VBG O2 Saturation % VBG Base Excess mEq/L Barometric Pressure mm/Hg Sodium 141 (136-145) mmol/L Potassium 3.4 L (3.5-5.1) mmol/L Chloride 106 (98-107) mmol/L Carbon Dioxide 31 (21-32) mmol/L Anion Gap 4.0 (3-11) BUN 33 H (7-18) mg/dl Creatinine 1.55 H (0.6-1.4) mg/dl Est Cr Clr Drug Dosing 60.7 ml/min Est GFR ( Amer) 51.8 ml/min Est GFR (Non-Af Amer) 44.7 ml/min BUN/Creatinine Ratio 21.2 H (10-20) Glucose 144 H (70-99) mg/dl Calcium 8.6 (8.5-10.1) mg/dl Magnesium 2.3 (1.8-2.4) mg/dl Total Bilirubin 0.3 (0.2-1) mg/dl AST 14 L (15-37) U/L ALT 14 (12-78) U/L Alkaline Phosphatase 120 H (45-117) U/L Troponin I < 0.015 (0-0.045) ng/ml NT-Pro-B Natriuret Pep 387 (0-900) pg/ml Total Protein 7.7 (6.4-8.2) gm/dl Albumin 3.0 L (3.4-5.0) gm/dl Globulin 4.7 H (2.5-4.0) gm/dl Albumin/Globulin Ratio 0.6 L (0.9-2) Urine Color Urine Appearance (Clear) Urine pH (4.5-7.5) Ur Specific [place] (1.000-1.030) Urine Protein (Negative) Urine Glucose (UA) (Negative) Urine Ketones (Negative) Urine Blood (Negative) Urine Nitrite (Negative) Urine Bilirubin (Negative) Urine Urobilinogen (Negative) Ur Leukocyte Esterase (Negative) Urine WBC (Auto) (0-5) /hpf Urine RBC (Auto) (0-4) /hpf U Hyaline Cast (Auto) (0-5) /lpf U Epithel Cells (Auto) (0-5) /lpf Urine Bacteria (Auto) (Negative) COVID-19 Eval Order SARS-CoV-2 (PCR) (Negative) Blood Type Antibody Screen 08/26/20 08/26/20 08/26/20 Range/Units 15:40 16:00 16:00 WBC (4.8-10.8) K/uL RBC (4.7-6.1) M/uL Hgb (14.0-18.0) g/dL Hct (42-52) % MCV (80-100) fL MCH (25-34) pg MCHC (32-36) g/dL RDW Std Deviation (36.4-46.3) fL RDW Coeff of Gopal (11.5-14.5) % Plt Count (130-400) K/uL MPV (7.4-10.4) fL Immature Gran % (Auto) % Neut % (Auto) % Lymph % (Auto) % [place] % (Auto) % Eos % (Auto) % Baso % (Auto) % Neut # (Auto) (1.4-6.5) K/uL Lymph # (Auto) (1.2-3.4) K/uL [place] # (Auto) (0.11-0.59) K/uL Eos # (Auto) (0-0.5) K/uL Baso # (Auto) (0-0.2) K/uL Immature Gran # (Auto) (0.00-0.02) K/uL Polychromasia Anisocytosis PT (9.0-12.0) Seconds INR (0.9-1.1) APTT (21.0-31.0) Seconds PTT Ratio VBG pH (7.36-7.41) VBG pCO2 (38-50) mmHg VBG pO2 mmHg VBG HCO3 mmol/L VBG O2 Saturation % VBG Base Excess mEq/L Barometric Pressure mm/Hg Sodium (136-145) mmol/L Potassium (3.5-5.1) mmol/L Chloride (98-107) mmol/L Carbon Dioxide (21-32) mmol/L Anion Gap (3-11) BUN (7-18) mg/dl Creatinine (0.6-1.4) mg/dl Est Cr Clr Drug Dosing ml/min Est GFR ( Amer) ml/min Est GFR (Non-Af Amer) ml/min BUN/Creatinine Ratio (10-20) Glucose (70-99) mg/dl Calcium (8.5-10.1) mg/dl Magnesium (1.8-2.4) mg/dl Total Bilirubin (0.2-1) mg/dl AST (15-37) U/L ALT (12-78) U/L Alkaline Phosphatase (45-117) U/L Troponin I (0-0.045) ng/ml NT-Pro-B Natriuret Pep (0-900) pg/ml Total Protein (6.4-8.2) gm/dl Albumin (3.4-5.0) gm/dl Globulin (2.5-4.0) gm/dl Albumin/Globulin Ratio (0.9-2) Urine Color Yellow Urine Appearance Clear (Clear) Urine pH 5.0 (4.5-7.5) Ur Specific [place] 1.012 (1.000-1.030) Urine Protein Trace H (Negative) Urine Glucose (UA) Negative (Negative) Urine Ketones Negative (Negative) Urine Blood Negative (Negative) Urine Nitrite Negative (Negative) Urine Bilirubin Negative (Negative) Urine Urobilinogen Negative (Negative) Ur Leukocyte Esterase 1+ H (Negative) Urine WBC (Auto) 10-30 H (0-5) /hpf Urine RBC (Auto) 0-4 (0-4) /hpf U Hyaline Cast (Auto) 1-5 (0-5) /lpf U Epithel Cells (Auto) 5-10 H (0-5) /lpf Urine Bacteria (Auto) Negative (Negative) COVID-19 Eval Order Covid19 at [facility] SARS-CoV-2 (PCR) NEGATIVE (Negative) Blood Type Antibody Screen 08/26/20 08/26/20 Range/Units 16:04 16:29 WBC (4.8-10.8) K/uL RBC (4.7-6.1) M/uL Hgb (14.0-18.0) g/dL Hct (42-52) % MCV (80-100) fL MCH (25-34) pg MCHC (32-36) g/dL RDW Std Deviation (36.4-46.3) fL RDW Coeff of Gopal (11.5-14.5) % Plt Count (130-400) K/uL MPV (7.4-10.4) fL Immature Gran % (Auto) % Neut % (Auto) % Lymph % (Auto) % [place] % (Auto) % Eos % (Auto) % Baso % (Auto) % Neut # (Auto) (1.4-6.5) K/uL Lymph # (Auto) (1.2-3.4) K/uL [place] # (Auto) (0.11-0.59) K/uL Eos # (Auto) (0-0.5) K/uL Baso # (Auto) (0-0.2) K/uL Immature Gran # (Auto) (0.00-0.02) K/uL Polychromasia Anisocytosis PT (9.0-12.0) Seconds INR (0.9-1.1) APTT (21.0-31.0) Seconds PTT Ratio VBG pH 7.35 L (7.36-7.41) VBG pCO2 61 H (38-50) mmHg VBG pO2 34 mmHg VBG HCO3 32 mmol/L VBG O2 Saturation 62.9 % VBG Base Excess 5.5 mEq/L Barometric Pressure 732.1 mm/Hg Sodium (136-145) mmol/L Potassium (3.5-5.1) mmol/L Chloride (98-107) mmol/L Carbon Dioxide (21-32) mmol/L Anion Gap (3-11) BUN (7-18) mg/dl Creatinine (0.6-1.4) mg/dl Est Cr Clr Drug Dosing ml/min Est GFR ( Amer) ml/min Est GFR (Non-Af Amer) ml/min BUN/Creatinine Ratio (10-20) Glucose (70-99) mg/dl Calcium (8.5-10.1) mg/dl Magnesium (1.8-2.4) mg/dl Total Bilirubin (0.2-1) mg/dl AST (15-37) U/L ALT (12-78) U/L Alkaline Phosphatase (45-117) U/L Troponin I (0-0.045) ng/ml NT-Pro-B Natriuret Pep (0-900) pg/ml Total Protein (6.4-8.2) gm/dl Albumin (3.4-5.0) gm/dl Globulin (2.5-4.0) gm/dl Albumin/Globulin Ratio (0.9-2) Urine Color Urine Appearance (Clear) Urine pH (4.5-7.5) Ur Specific [place] (1.000-1.030) Urine Protein (Negative) Urine Glucose (UA) (Negative) Urine Ketones (Negative) Urine Blood (Negative) Urine Nitrite (Negative) Urine Bilirubin (Negative) Urine Urobilinogen (Negative) Ur Leukocyte Esterase (Negative) Urine WBC (Auto) (0-5) /hpf Urine RBC (Auto) (0-4) /hpf U Hyaline Cast (Auto) (0-5) /lpf U Epithel Cells (Auto) (0-5) /lpf Urine Bacteria (Auto) (Negative) COVID-19 Eval Order SARS-CoV-2 (PCR) (Negative) Blood Type O Positive Antibody Screen NEGATIVE Administered Medications Albuterol (Albuterol Hfa 8 Gm Inhaler) 1 puffs INH QID PRN PRN Reason: sob Stop: 09/25/20 20:03 Last Admin: 08/27/20 14:45 Dose: 1 puffs Documented by: [id number] Ascorbic Acid (Ascorbic Acid 500 Mg Tab) 250 mg PO DAILY CONNIE Stop: 09/26/20 08:59 Last Admin: 08/27/20 08:25 Dose: 250 mg Documented by: [id number] Aspirin (Aspirin 81 Mg Ectab) 81 mg PO DAILY CONNIE Stop: 09/26/20 08:59 Last Admin: 08/27/20 08:27 Dose: 81 mg Documented by: [id number] Atorvastatin Calcium (Atorvastatin 40 Mg Tab) 40 mg PO HS CONNIE Stop: 09/25/20 20:59 Last Admin: 08/26/20 20:56 Dose: 40 mg Documented by: [id number] Cetirizine HCl (Cetirizine Hcl 10 Mg Tablet) 5 mg PO DAILY CONNIE Stop: 09/26/20 08:59 Last Admin: 08/27/20 08:26 Dose: 5 mg Documented by: [id number] Clonidine HCl (Clonidine Hcl 0.3 Mg Tab) 0.3 mg PO BID CONNIE Stop: 09/25/20 20:59 Last Admin: 08/27/20 08:26 Dose: 0.3 mg Documented by: [id number] Admin: 08/26/20 20:56 Dose: 0.3 mg Documented by: [id number] Cyanocobalamin (Cyanocobalamin 500 Mcg Tablet (Vitamin B-12)) 1,000 mcg PO DAILY CONNIE Stop: 09/26/20 08:59 Last Admin: 08/27/20 08:26 Dose: 1,000 mcg Documented by: [id number] Ferrous Sulfate (Ferrous Sulfate 325 Mg Tab) 325 mg PO DAILY CONNIE Stop: 09/26/20 08:59 Last Admin: 08/27/20 08:25 Dose: 325 mg Documented by: [id number] Finasteride (Finasteride 5 Mg Tab) 5 mg PO DAILY CONNIE Stop: 09/26/20 08:59 Last Admin: 08/27/20 08:27 Dose: 5 mg Documented by: [id number] Hydralazine HCl (Hydralazine Tab 50 Mg Tab) 100 mg PO TID CONNIE Stop: 09/25/20 20:59 Last Admin: 08/27/20 14:14 Dose: 100 mg Documented by: [id number] Admin: 08/27/20 08:26 Dose: 100 mg Documented by: [id number] Admin: 08/26/20 20:56 Dose: 100 mg Documented by: [id number] Furosemide 40 mg/ Syringe 4 mls @ 4 mls/min IV BID CONNIE Stop: 09/25/20 20:59 Last Admin: 08/27/20 08:25 Dose: 4 mls/min Documented by: [id number] Admin: 08/26/20 20:57 Dose: 4 mls/min Documented by: [id number] Insulin Aspart (Insulin Aspart 100 Units/Ml 3 Ml Pen) 0 units SC ACHS CONNIE Stop: 09/25/20 20:59 Last Admin: 08/27/20 17:20 Dose: 15 units Documented by: [id number] Cosigned by: [id number] Admin: 08/27/20 12:48 Dose: 12 units Documented by: [id number] Cosigned by: [id number] Admin: 08/27/20 08:24 Dose: 12 units Documented by: [id number] Cosigned by: [id number] Admin: 08/26/20 20:57 Dose: 7 units Documented by: [id number] Cosigned by: [id number] Insulin Human NPH (Insulin Human Nph) 0 units SC QDB [facility]; Protocol Stop: 09/26/20 07:29 Last Admin: 08/27/20 08:24 Dose: 60 units Documented by: [id number] Cosigned by: [id number] Insulin Human NPH (Insulin Human Nph) 20 units SC QDD CONNIE Stop: 09/26/20 16:29 Last Admin: 08/27/20 17:21 Dose: 20 units Documented by: [id number] Cosigned by: [id number] Lisinopril (Lisinopril 40 Mg Tab) 40 mg PO DAILY CONNIE Stop: 09/26/20 08:59 Last Admin: 08/27/20 08:25 Dose: 40 mg Documented by: [id number] Pantoprazole Sodium (Pantoprazole 40 Mg Tab) 40 mg PO HS CONNIE Stop: 09/25/20 20:59 Last Admin: 08/26/20 20:56 Dose: 40 mg Documented by: [id number] Terazosin HCl (Terazosin Hcl 5 Mg Cap) 5 mg PO DAILY CONNIE Stop: 09/26/20 08:59 Last Admin: 08/27/20 08:25 Dose: 5 mg Documented by: [id number] Vitamin D (Cholecalciferol 1,000 Units 25 Mcg Tab) 1,000 units PO DAILY CONNIE Stop: 09/26/20 08:59 Last Admin: 08/27/20 08:27 Dose: 1,000 units Documented by: [id number] Discontinued Medications Carvedilol (Carvedilol 6.25 Mg Tab) 18.75 mg PO BID CONNIE Stop: 09/25/20 20:59 Last Admin: 08/27/20 08:26 Dose: 18.75 mg Documented by: [id number] Admin: 08/26/20 20:56 Dose: 18.75 mg Documented by: [id number] Furosemide (Furosemide 40 Mg/4 Ml Vial) 40 mg IV NOW STA Stop: 08/26/20 16:53 Last Admin: 08/26/20 16:56 Dose: 40 mg Documented by: [id number] Insulin Human NPH (Insulin Human Nph) 10 units SC QDD CONNIE Stop: 09/25/20 20:59 Last Admin: 08/26/20 20:57 Dose: 10 units Documented by: [id number] Cosigned by: [id number] Potassium Chloride (Potassium Chloride Crtab 20 Meq Tabcr) 40 meq PO NOW STA Stop: 08/26/20 18:05 Last Admin: 08/26/20 18:33 Dose: 40 meq Documented by: [id number] Imaging Data Radiologist's Impression: Chest X-Ray 08/26/20 15:52 SINGLE VIEW CHEST CLINICAL HISTORY: Dyspnea. FINDINGS: An AP, portable, upright chest radiograph is compared to study dated 12/25/2010. The examination is degraded by portable technique and patient rotation. The heart is enlarged noting atherosclerotic calcification of the thoracic aorta. There is pulmonary vascular congestion. There is elevation of the right hemidiaphragm. There are small pleural effusions with bibasilar consolidation. No pneumothorax is seen. The skeletal structures are osteopenic. The bony thorax is grossly intact. IMPRESSION: 1. Cardiomegaly with evidence of congestive failure. 2. There are small pleural effusions with bibasilar consolidation. This likely represents atelectasis and clinical correlation will be required. Radiographic follow-up to resolution is recommended ACT 112: Negative or not required by law. Electronically signed by: Rui Bland M.D. 08/26/2020 4:45 PM Discharge Plan Visit Data Chief Complaint: Shortness of Breath/Dyspnea ED Provider: Jesus Rios Discharge Problem: CHF (congestive heart failure), Anemia Patient Disposition: Admitted As Inpatient Condition: Good Discharge Instructions Interventions: ED Discharge Assessment Last Done: 08/26/20 19:31 Discharge Problem: CHF (congestive heart failure) Qualifiers: Heart failure type: unspecified Heart failure chronicity: acute on chronic Q ualified Code(s): I50.9 - Heart failure, unspecified Anemia Qualifiers: Anemia type: unspecified type Qualified Code(s): D64.9 - Anemia, unspecified
[2020-08-26 16:13] LABS: Alanine Aminotransferase 14 U/L (12-78); Aspartate Aminotransferase 14 U/L (15-37); BUN Creatinine Ratio 21.2 (10-20); Blood Urea Nitrogen 33 mg/dl (7-18); Calcium 8.6 mg/dl (8.5-10.1); Carbon Dioxide 31 mmol/L (21-32); Chloride 106 mmol/L (98-107); Creatinine Clr Calc Pharmacy 60.7 ml/min; Est GFR (African American) 51.8 ml/min; Est GFR (Non-African American) 44.7 ml/min; Glucose 144 mg/dl (70-99); Magnesium 2.3 mg/dl (1.8-2.4); Potassium 3.4 mmol/L (3.5-5.1); Sodium 141 mmol/L (136-145)
[2020-08-26 16:16] LABS: Base Excess VBG 5.5 mEq/L; Oxygen Saturation VBG 62.9 %; pH VBG 7.35 (7.36-7.41)
[2020-08-26 16:18] LABS: Albumin Globulin Ratio 0.6 (0.9-2); Alkaline Phosphatase 120 U/L (45-117); Bilirubin,Total 0.3 mg/dl (0.2-1); Globulin 4.7 gm/dl (2.5-4.0); INR 1.1 (0.9-1.1); NT Pro B Type Natriuretic Pept 387 pg/ml (0-900); Partial Thromboplastin Time 25.3 Seconds (21.0-31.0); Prothrombin Time 11.1 Seconds (9.0-12.0); Total Protein 7.7 gm/dl (6.4-8.2); Troponin I < 0.015 ng/ml (0-0.045)
[2020-08-26 16:19] LABS: Appearance Urine Clear (Clear); Bacteria Urine Automated Negative (Negative); Bilirubin Urine Negative (Negative); Blood Urine Negative (Negative); Color Urine Yellow; Glucose Urine UA Negative (Negative); Ketones Urine Negative (Negative); Leukocyte Esterase Urine 1+ (Negative); Nitrite Urine Negative (Negative); Protein Urine Trace (Negative); RBC Urine Automated 0-4 /hpf (0-4); Specific Gravity Urine 1.012 (1.000-1.030); Urobilinogen Urine Negative (Negative)
--- NOTE | 2020-08-26 16:46 | XRay Report ---
SINGLE VIEW CHEST CLINICAL HISTORY: Dyspnea. FINDINGS: An AP, portable, upright chest radiograph is compared to study dated 12/25/2010. The examina tion is degraded by portable technique and patient rotation. The heart is enlarged noting atheroscler otic calcification of the thoracic aorta. There is pulmonary vascular congestion. There is elevation of the right hemidiaphragm. There are small pleural effusions with bibasilar consolidation. No pneumo thorax is seen. The skeletal structures are osteopenic. The bony thorax is grossly intact. IMPRESSION: 1. Cardiomegaly with evidence of congestive failure. 2. There are small pleural effusions with bibasilar consolidation. This likely represents atelectasis and clinical correlation will be required. Radiographic follow-up to resolution is recommended ACT 112: Negative or not required by law. Electronically signed by: Rui Bland M.D. 08/26/2020 4:45 PM
[2020-08-26] MEDS ORDERED: FUROSEMIDE 40 MG/4 ML VIAL IV STA (16:52)
[2020-08-26 17:08] LABS: Anisocytosis Present; Polychromasia 1+
[2020-08-26] MEDS ORDERED: POTASSIUM CHLORIDE CRTAB 20 MEQ TABCR PO STA (18:04)
--- NOTE | 2020-08-26 18:28 | History & Physical Report ---
Date of Service August 26, 2020 Assessment & Plan (1) Shortness of breath: Admit to tele - Possible CHF exacerbation. Also note hx of chronic tobacco use x 50 years with possible underlying COPD however no formal PFTs to review. -VBG completed showing pH of 7.35, CO2 61, bicarb 32-encouraged wearing BiPAP tonight, patient noncompliance at home - likely chronically retains Co2. -Patient appears to be volume overloaded with shortness of breath, abdominal distention, murmur heard on exam - was given lasix 40 mg IV in the ER however patient takes Torsemide 100 mg BID daily, will administer another dose of Lasix this evening and continue BID dosing - Consult cardiology - Strict I/Os, fluid restriction, place banda cath - Last 2D echo on 09/20/2018-showed LV wall thickness mildly concentric, normal wall motion, LVEF 55 to 59%, diastolic function mildly abnormal, mild aortic valve sclerosis present - will repeat echo - BNP is not elevated currently - EKG reviewed showing sinus jazlyn, R BBB (2) HTN (hypertension): - Pt followed previously with cardiology with [facility], has been over 1 year since seen in their office but has been getting medication refills -Hydralazine 100 mg TID, carvedilol 37.5 mg BID, clonidine 0.3 mg BID, Terazosin 5 mg daily, lisinopril 40 mg daily (3) Dyslipidemia: -Continue atorvastatin 40 mg daily (4) Diabetes: -Continue NPH, NovoLog, ISS with Accu-Cheks -Last A1c was 6.2 on 05/15/2020 -Glycemic pharmacy consulted (5) Neuropathy: -History of such, continue Tylenol as needed, does not appear that the patient is on specific medication for neuropathy - Noted 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 (6) CKD (chronic kidney disease): - History of such, baseline 1.7-1.8, stage III, on admission cr=1.55, BUN 33 - Continue to avoid nephrotoxins and renally dose medications (7) BPH (benign prostatic hyperplasia): - Banda catheter, continue flomax (8) Obesity, Class III, BMI 40-49.9 (morbid obesity): -BMI of 46.8, diet and exercise encouraged (9) Venous stasis ulcers of both lower extremities: - History of such, noted on exam, following with wound clinic as outpatient - Consider inpatient wound consult (10) Chronic venous insufficiency: -Has recently underwent sclerotherapy per Dr. Villalba's office, see HPI (11) MGUS (monoclonal gammopathy of unknown significance): - Received Retacrit injection on 08/19/2020 and today 08/26/2020, pt hgb was 7.6 as an outpatient, baseline is 8.0, currently no need for transfusion. 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 Patient reports that this has been going on for several months in general, but has worsened specifically within the past week. Previously had has been able to ambulate 20 to 30 feet however at this point is unable to go more than a few steps without feeling significantly winded. Patient reports feeling somewhat swollen in his abdomen more so than his feet. He reports never wearing supplemental O2, and is noncompliant with BiPAP. Patient has been supposed to follow-up with pulmonary as an outpatient however has not had an appointment. He is taking all his medications as routinely scheduled including his torsemide 100 mg BID, although due to the amount of appointments he had today missed his afternoon dose. Patient was in for routine follow-up for chronic lower extremity wounds at the wound clinic and due to his hypoxia of 88% he was sent here to the ER for further work-up. Patient is breathing heavily while sitting at bedside and reports that he breathes easier when his feet are down on the ground and he leans forward in a recliner chair. Patient is unaware of weight gain, and reports he weighed 306 lbs naked at home on his scale, and 311 at clinic today. He denies high sodium diet, drinks fluid as he feels thirsty, does not routinely exercise. Pt has been following with Dr. Villalba recently for sclerotherapy, having this performed 08/13/2020 due to his recurrent bilateral lower extremity wounds. He feels that his legs are less swollen since having this procedure. There are 2 ulcerations on lateral sides of both his legs which she has been following with the wound clinic for. Allergies Allergy/AdvReac Type Severity Reaction Status Date / Time No Known Allergies Allergy Verified 08/26/20 14:54 Home Medications Medication Instructions Recorded Confirmed Type albuterol sulfate 90 mcg/actuation 1 puff INHALATION QID PRN 08/26/20 08/26/20 History aerosol inhaler (ProAir HFA) aspirin 81 mg tablet,delayed 81 mg PO DAILY 08/26/20 08/26/20 History release atorvastatin 40 mg tablet 40 mg PO HS 08/26/20 08/26/20 History carvedilol 12.5 mg tablet 18.75 mg PO BID 08/26/20 08/26/20 History cetirizine 10 mg tablet 5 mg PO DAILY 08/26/20 08/26/20 History cholecalciferol (vitamin D3) 25 25 mcg PO DAILY 08/26/20 08/26/20 History mcg (1,000 unit) capsule clonidine HCl 0.3 mg tablet 0.3 mg PO BID 08/26/20 08/26/20 History cyanocobalamin (vitamin B-12) 1,000 mcg PO DAILY 08/26/20 08/26/20 History 1,000 mcg tablet finasteride 5 mg tablet 5 mg PO DAILY 08/26/20 08/26/20 History hydralazine 100 mg tablet 100 mg PO TID 08/26/20 08/26/20 History insulin NPH-regular 70-30 U-100 0 unit SUBCUT UD 08/26/20 08/26/20 History insulin 100 unit/mL subcutaneous pen insulin regular human 100 unit/mL 1 sliding scale dose SUBCUT 08/26/20 08/26/20 History injection solution USEASDIRECTD iron,carbonyl 65 mg-vitamin C 125 1 tab PO DAILY 08/26/20 08/26/20 History mg tablet,delayed release (Vitron-C) lisinopril 20 mg tablet 40 mg PO DAILY 08/26/20 08/26/20 History magnesium oxide 140 mg capsule 140 mg PO DAILY 08/26/20 08/26/20 History omeprazole 20 mg capsule,delayed 20 mg PO HS 08/26/20 08/26/20 History release terazosin 5 mg capsule 5 mg PO DAILY 08/26/20 08/26/20 History torsemide 100 mg tablet 100 mg PO BID 08/26/20 08/26/20 History Past Med/Surg History Medical History Acute urinary retention BPH (benign prostatic hyperplasia) CKD (chronic kidney disease) Diabetes Dyslipidemia Fall Gastroesophageal reflux disease Hematuria, gross HTN (hypertension) Insomnia Neuropathy Obesity, Class III, BMI 40-49.9 (morbid obesity) Obstructive sleep apnea of adult RBBB Tachy-jazlyn syndrome Venous insufficiency Surgical History H/O circumcision H/O esophagogastroduodenoscopy H/O inguinal hernia repair History of tonsillectomy and adenoidectomy History of uvulopalatopharyngoplasty Hx of colonoscopy S/P cataract surgery S/P transurethral resection of prostate Family History Sister Crohn's disease Diabetes Mother Diabetes Brother Kidney disease Heart disease Other FH: cataracts Social History Smoking Status: Former smoker Tobacco Type: Cigarettes packs per day: 1; Hx Alcohol Use: No Hx Substance Use: No Preferred Language: Liberian Communication Ability: Effective 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 Beliefs That Will Affect Care: None marital status: Current Living Situation: Spouse How many Children do You have: 2 Feels Safe at Home: Yes Assistive Devices: Oxygen - Continuous Review of Systems Review of Systems: Constitutional: No fever, sweats or chills Eyes: No diplopia, no worsening or blurred vision ENT: normal hearing, no trouble swallowing Respiratory: As per HPI, + cough, + sputum, + dyspnea at rest and on exertion Cardiovascular: No chest pain, tightness or palpitations Abdomen: + Feels abdominal bloating, no pain, nausea, vomiting, diarrhea or constipation Musculoskeletal: No joint pain, calf pain, improved bilateral lower extremity swelling Neurologic: No weakness, numbness/tingling, or balance problems, + uses wheelchair or walker when going long distances. 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), no pharyngeal exudate, mucous membranes moist Chest: + Breathing heavily during my exam, O2 sats at 95% on 2 LPM NC, diminished breath sounds at bases with fine crackles, no wheezing or rales Cardiac: Sinus bradycardia, + systolic murmur, but he habitus makes assessing for JVD difficult, normal peripheral pulses, good capillary refill Abdominal: NABS x 4 quadrants, soft, mildly distended, + small umbilical hernia, nontender to palpation, no rebound or guarding Back: Small area of ecchymosis under the right axilla Extremities: + EDMOND stockings in place, Kerlix dressing wrapped around bilateral lower extremity covering wounds, dressing was not removed as was changed today by wound clinic, otherwise normal inspection, no peripheral edema or erythema, calfs nontender to palpation Psych: Normal mood and affect Neuro: AAO x 3, strength right upper extremity diminished at 4/5, status post Tineo's palsy,strength equal bilaterally in lower extremities and rated 5/5, no motor deficits, speech is clear, + sensory deficits secondary to neuropathy distal lower extremities Results & Data Results & Data ([facility]) Vital Signs (Past 12 Hours) Vital Signs Temp Pulse Resp BP Pulse Ox 08/26/20 18:00 57 L 16 174/84 H 95 08/26/20 17:30 61 19 175/73 H 94 08/26/20 17:01 64 16 177/65 H 96 08/26/20 17:00 63 20 94 08/26/20 16:56 59 L 19 178/71 H 98 08/26/20 16:30 57 L 23 95 08/26/20 16:00 59 L 21 169/90 H 97 08/26/20 15:39 90 08/26/20 15:30 36.7 C 61 24 170/76 H 90 Diagnostic Findings Chest X-Ray 08/26/20 15:52 SINGLE VIEW CHEST CLINICAL HISTORY: Dyspnea. FINDINGS: An AP, portable, upright chest radiograph is compared to study dated 12/25/2010. The examination is degraded by portable technique and patient rotation. The heart is enlarged noting atherosclerotic calcification of the thoracic aorta. There is pulmonary vascular congestion. There is elevation of the right hemidiaphragm. There are small pleural effusions with bibasilar consolidation. No pneumothorax is seen. The skeletal structures are osteopenic. The bony thorax is grossly intact. IMPRESSION: 1. Cardiomegaly with evidence of congestive failure. 2. There are small pleural effusions with bibasilar consolidation. This likely represents atelectasis and clinical correlation will be required. Radiographic follow-up to resolution is recommended ACT 112: Negative or not required by law. Electronically signed by: Rui Bland M.D. 08/26/2020 4:45 PM ECG Additional Comments: 26-AUG-2020 15:54:45 [facility] ROUTINE RETRIEVAL Sinus bradycardia Right bundle branch block Possible Inferior infarct , age undetermined Abnormal ECG When compared with ECG of 25-DEC-2010 10:56, Right bundle branch block is now Present Borderline criteria for Inferior infarct are now Present 25mm/s 10mm/mV 150Hz 9.0.9 12SL 241 MARTHA: 15 Referred by: REFERRED SELF Unconfirmed Vent. rate 57 BPM ND interval 160 ms QRS duration 164 ms QT/QTc 498/484 ms Code Status & VTE Plan Code Status Full code-discussed with the patient at bedside VTE Prophylaxis Plan VTE Prophylaxis will be ordered: Yes Supervising Physician Co-Signing Physician Notes Pt was seen and examined. Agreed with MIGUELITO Bennett exam, assessment and plan. 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 Today he was at the wound care clinic when they sent him to the ER for SOB and hypoxia. Pt said that he has been having SOB for weeks, but in the last few days his breathing has been getting worst. He said that his SOB worsening with exertion and unable to walk for a few feet without stopping to catch his breath. Pt is not compliant with Bipap. CXR on admission showed cardiomegaly with evidence of congestive failure and small pleural effusions with bibasilar consolidation. VBG on admission with pH of 7.35, CO2 61, bicarb 32. Received Lasix IV 40mg IV in the ER. Will give an additional dose of Lasix 40mg IV later since pt is on torsemide 100mg BID home dose. Will consult cardiology. Will get an ECHO. Monitor I/O and fluid restriction. Continue monitor closely in tele. MD Linnea
[2020-08-26] MEDS ORDERED: POLYETHYLENE (MIRALAX) 17 GM PACK PO PRN (19:49)
[2020-08-26] MEDS ORDERED: hydrALAZINE HCL 20 MG/ML VIAL IV PRN (19:49)
[2020-08-26] MEDS ORDERED: CARBOHYDRATES FOR HYPOGLYCEMIA PO PRN (19:49)
[2020-08-26] MEDS ORDERED: MAGNESIUM HYDROXIDE SUSP 30 ML UDC PO PRN (19:49)
[2020-08-26] MEDS ORDERED: GLUCOSE 40% GEL 15 GM TUBE PO PRN (19:49)
[2020-08-26] MEDS ORDERED: ONDANSETRON INJ 2 MG/ML 2 ML VIAL IV PRN (19:49)
[2020-08-26] MEDS ORDERED: DEXTROSE 50% 50 ML SYRINGE IV PRN (19:49)
[2020-08-26] MEDS ORDERED: GLUCOSE 10 TABS/TUBE PO PRN (19:49)
[2020-08-26] MEDS ORDERED: GLUCAGON FOR INJ 1 MG VIAL SQ PRN (19:49)
[2020-08-26] MEDS ORDERED: ALUMINUM/MAGNESIUM SUSP 30 ML UDC PO PRN (19:49)
[2020-08-26] MEDS ORDERED: PHARMACY GLYCEMIC MGMT CONSULT PRN (20:03)
[2020-08-26] MEDS ORDERED: ALBUTEROL HFA 8 GM INHALER INH PRN (20:04)
[2020-08-26] MEDS: PANTOprazole 40 MG TAB PO SCH (20:56)
[2020-08-26] MEDS: cloNIDine HCL 0.3 MG TAB PO SCH (20:56)
[2020-08-26] MEDS: ATORVASTATIN 40 MG TAB PO SCH (20:56)
[2020-08-26] MEDS: carvediloL 6.25 MG TAB PO SCH (20:56)
[2020-08-26] MEDS: hydrALAZINE TAB 50 MG TAB PO SCH (20:56)
[2020-08-26] MEDS: INSULIN ASPART 100 UNITS/ML 3 ML PEN SC SCH (20:57)
[2020-08-26] MEDS: FUROSEMIDE 40 MG in SYRINGE 0 ML IV SCH (20:57)
[2020-08-26] MEDS ORDERED: INSULIN HUMAN NPH SC SCH (21:00)
[2020-08-26] MEDS ORDERED: FUROSEMIDE 40 MG/4 ML VIAL IV SCH (21:00)
--- NOTE | 2020-08-27 06:40 | Electrocardiogram Report ---
Test Reason : Blood Pressure : / mmHG Vent. Rate : 057 BPM Atrial Rate : 057 BPM P-R Int : 160 ms QRS Dur : 164 ms QT Int : 498 ms P-R-T Axes : 066 047 017 degrees QTc Int : 484 ms Sinus bradycardia Right bundle branch block Cannot rule out Inferior infarct , age undetermined Abnormal ECG When compared with ECG of 25-DEC-2010 10:56, Right bundle branch block is now Present Confirmed by Silver Brumfield ([id number]) on 08/27/2020 6:40:05 AM Referred By: REFERRED SELF Confirmed By:Silver Brumfield
[2020-08-27 06:57] LABS: Hematocrit (blood only) 28.5 % (42-52); Hemoglobin 8.6 g/dL (14.0-18.0); Mean Corpuscular Hemoglobin 31.6 pg (25-34); Mean Corpuscular Hgb Conc 30.2 g/dL (32-36); Mean Corpuscular Volume 104.8 fL (80-100); Mean Platelet Volume 9.2 fL (7.4-10.4); Platelet Count 168 K/uL (130-400); RDW Coefficient of Variation 18.1 % (11.5-14.5); RDW Standard Deviation 68.3 fL (36.4-46.3); Red Blood Count 2.72 M/uL (4.7-6.1)
[2020-08-27 07:28] LABS: Estimated Average Glucose 111 mg/dl; Hemoglobin A1C 5.5 % (4.5-5.6)
[2020-08-27 07:44] LABS: Albumin Globulin Ratio 0.7 (0.9-2); Albumin Level 3.3 gm/dl (3.4-5.0); BUN Creatinine Ratio 22.8 (10-20); Bilirubin,Total 0.4 mg/dl (0.2-1); Calcium 8.8 mg/dl (8.5-10.1); Creatinine Clr Calc Pharmacy 61.6 ml/min; Est GFR (Non-African American) 45.8 ml/min; Globulin 4.6 gm/dl (2.5-4.0); Magnesium 2.4 mg/dl (1.8-2.4); Potassium 4.1 mmol/L (3.5-5.1); Total Protein 7.9 gm/dl (6.4-8.2)
[2020-08-27] MEDS: INSULIN HUMAN NPH SC SCH (08:24)
[2020-08-27] MEDS: INSULIN ASPART 100 UNITS/ML 3 ML PEN SC SCH ×4 (08:24→21:34)
[2020-08-27] MEDS: TERAZOSIN HCL 5 MG CAP PO SCH (08:25)
[2020-08-27] MEDS: ASCORBIC ACID 500 MG TAB PO SCH (08:25)
[2020-08-27] MEDS: lisinopril 40 MG TAB PO SCH (08:25)
[2020-08-27] MEDS: FERROUS SULFATE 325 MG TAB PO SCH (08:25)
[2020-08-27] MEDS: FUROSEMIDE 40 MG in SYRINGE 0 ML IV SCH ×2 (08:25→21:31)
[2020-08-27] MEDS: cloNIDine HCL 0.3 MG TAB PO SCH ×2 (08:26→21:32)
[2020-08-27] MEDS: CYANOCOBALAMIN 500 MCG TABLET (VITAMIN B-12) PO SCH (08:26)
[2020-08-27] MEDS: hydrALAZINE TAB 50 MG TAB PO SCH ×3 (08:26→21:32)
[2020-08-27] MEDS: carvediloL 6.25 MG TAB PO SCH (08:26)
[2020-08-27] MEDS: CETIRIZINE HCL 10 MG TABLET PO SCH (08:26)
[2020-08-27] MEDS: CHOLECALCIFEROL 1,000 UNITS 25 MCG TAB PO SCH (08:27)
[2020-08-27] MEDS: FINASTERIDE 5 MG TAB PO SCH (08:27)
[2020-08-27] MEDS: ASPIRIN 81 MG ECTAB PO SCH (08:27)
[2020-08-27] MEDS ORDERED: MAGNESIUM OXIDE PO SCH (09:00)
--- NOTE | 2020-08-27 10:00 | Cardiology Consultation ---
Date of Consultation August 27, 2020 Assessment & Plan (1) Obesity, Class III, BMI 40-49.9 (morbid obesity): (2) Obstructive sleep apnea of adult: (3) Venous stasis ulcers of both lower extremities: (4) Lower extremity edema: (5) MGUS (monoclonal gammopathy of unknown significance): (6) Shortness of breath: This is a very complex patient. His shortness of breath is multifactorial including chronic right heart failure due to obesity with hypoventilation syndrome and sleep apnea along with anemia from his monoclonal gammopathy. I would continue diuresis as you are doing. He is hypertensive and I have increased his carvedilol to 25 mg twice daily. He is already on multiple antihypertensive medications and it may be difficult to bring his blood pressure into the normal range. I would be certain that he is using his CPAP at night. If necessary wound care may help with his venous stasis ulcers of the lower extremities. History of Present Illness Attending Physician: Neha Glover MD History of Present Illness This is a 70-year-old male patient with a complex past medical history. The patient has a history of obesity with sleep apnea, episodes of acute decompensated right heart failure due to pulmonary hypertension, chronic right bundle branch block, PSVT, chronic stage IV kidney disease, COPD and MGUS with the need for transfusions and iron replacement due to anemia. Unfortunately, he is also had noncompliance in the past. Patient states that yesterday he was outside in the heat and overdid it. He did not feel well and had some shortness of breath. He decided to come into the emergency department. Allergies Allergy/AdvReac Type Severity Reaction Status Date / Time No Known Allergies Allergy Verified 08/26/20 14:54 Home Medications Medication Instructions Recorded Confirmed Type albuterol sulfate [ProAir HFA] 1 puff INHALATION QID PRN 08/26/20 08/26/20 History aspirin [Aspir-81] 81 mg PO DAILY 08/26/20 08/26/20 History atorvastatin 40 mg PO HS 08/26/20 08/26/20 History carvedilol 18.75 mg PO BID 08/26/20 08/26/20 History cetirizine 5 mg PO DAILY 08/26/20 08/26/20 History cholecalciferol (vitamin D3) 25 mcg PO DAILY 08/26/20 08/26/20 History clonidine HCl 0.3 mg PO BID 08/26/20 08/26/20 History cyanocobalamin (vitamin B-12) 1,000 mcg PO DAILY 08/26/20 08/26/20 History finasteride 5 mg PO DAILY 08/26/20 08/26/20 History hydralazine 100 mg PO TID 08/26/20 08/26/20 History insulin NPH and regular human 0 unit SUBCUT UD 08/26/20 08/26/20 History insulin regular human 1 sliding scale dose SUBCUT 08/26/20 08/26/20 History USEASDIRECTD iron,carbonyl-vitamin C [Vitron-C] 1 tab PO DAILY 08/26/20 08/26/20 History lisinopril 40 mg PO DAILY 08/26/20 08/26/20 History magnesium oxide 140 mg PO DAILY 08/26/20 08/26/20 History omeprazole 20 mg PO HS 08/26/20 08/26/20 History terazosin 5 mg PO DAILY 08/26/20 08/26/20 History torsemide 100 mg PO BID 08/26/20 08/26/20 History Patient History Medical History Acute urinary retention BPH (benign prostatic hyperplasia) CKD (chronic kidney disease) Diabetes Dyslipidemia Fall Gastroesophageal reflux disease Hematuria, gross HTN (hypertension) Insomnia Neuropathy Obesity, Class III, BMI 40-49.9 (morbid obesity) Obstructive sleep apnea of adult RBBB Tachy-jazlyn syndrome Venous insufficiency Surgical History H/O circumcision H/O esophagogastroduodenoscopy H/O inguinal hernia repair History of tonsillectomy and adenoidectomy History of uvulopalatopharyngoplasty Hx of colonoscopy S/P cataract surgery S/P transurethral resection of prostate Family History Sister Crohn's disease Diabetes Mother Diabetes Brother Kidney disease Heart disease Other FH: cataracts Social History Smoking Status: Former smoker Tobacco Type: Cigarettes packs per day: 1; Smoking End Date: 1988; Hx Alcohol Use: No Hx Substance Use: No Preferred Language: Tamazight Communication Ability: Effective 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: No Beliefs That Will Affect Care: None marital status: Current Living Situation: Spouse How many Children do You have: 2 Other Information That Helps Us Care for You: No Feels Safe at Home: Yes Safety Concerns: Feels Safe At This Time Assistive Devices: Oxygen - Continuous Review of Systems Review of Systems: All systems reviewed & are unremarkable except as noted in HPI & below Nothing additional to add Physical Exam Physical Exam: General: Morbidly obese sitting in a chair Head: normocephalic, no masses, lesions, tenderness or abnormalities Eyes: conjunctiva are pink and non-injected, sclera clear Neck: supple, no adenopathy, no bruits, normal jugular venous pulse, no hepatojugular reflux Chest: normal shape and normal respiratory effort Lungs: clear to auscultation and percussion Cardiac Exam: - regular rate & rhythm, no murmurs gallops or rubs - normal S1, normal S2 Pulses: 2(+) throughout Abdomen: Obese, abdomen soft, non-tender, no abnormal masses and no hepatosplenomegaly Musculoskeletal: no gait disturbance, no joint inflammation, no deforming arthritis Extremities: Legs are wrapped. Neuro: grossly normal exam Results & Data ([facility]) Vital Signs (Past 12 Hours) Vital Signs Temp Pulse Pulse Resp BP Pulse Ox 08/27/20 07:28 36.4 C L 69 20 169/77 H 95 08/27/20 04:13 37.0 C 81 18 132/93 96 08/26/20 23:35 36.7 C 70 18 133/60 96 Laboratory Results Laboratory Results - last 24 hr 08/26/20 08/26/20 08/26/20 15:40 15:40 15:40 WBC 5.50 RBC 2.45 L Hgb 7.8 L Hct 25.5 L MCV 104.1 H MCH 31.8 MCHC 30.6 L RDW Std Deviation 67.9 H RDW Coeff of Gopal 18.1 H Plt Count 174 MPV 9.8 Immature Gran % (Auto) 0.2 Neut % (Auto) 61.7 Lymph % (Auto) 22.2 [place] % (Auto) 12.4 Eos % (Auto) 3.3 Baso % (Auto) 0.2 Neut # (Auto) 3.40 Lymph # (Auto) 1.22 [place] # (Auto) 0.68 H Eos # (Auto) 0.18 Baso # (Auto) 0.01 Immature Gran # (Auto) 0.01 Polychromasia 1+ Anisocytosis Present PT 11.1 INR 1.1 APTT 25.3 PTT Ratio 1.0 VBG pH VBG pCO2 VBG pO2 VBG HCO3 VBG O2 Saturation VBG Base Excess Barometric Pressure Sodium 141 Potassium 3.4 L Chloride 106 Carbon Dioxide 31 Anion Gap 4.0 BUN 33 H Creatinine 1.55 H Est Cr Clr Drug Dosing 60.7 Est GFR ( Amer) 51.8 Est GFR (Non-Af Amer) 44.7 BUN/Creatinine Ratio 21.2 H Glucose 144 H POC Glucose Estimat Average Glucose Hemoglobin A1c Calcium 8.6 Magnesium 2.3 Total Bilirubin 0.3 AST 14 L ALT 14 Alkaline Phosphatase 120 H Troponin I < 0.015 NT-Pro-B Natriuret Pep 387 Total Protein 7.7 Albumin 3.0 L Globulin 4.7 H Albumin/Globulin Ratio 0.6 L Urine Color Urine Appearance Urine pH Ur Specific [place] Urine Protein Urine Glucose (UA) Urine Ketones Urine Blood Urine Nitrite Urine Bilirubin Urine Urobilinogen Ur Leukocyte Esterase Urine WBC (Auto) Urine RBC (Auto) U Hyaline Cast (Auto) U Epithel Cells (Auto) Urine Bacteria (Auto) COVID-19 Eval Order SARS-CoV-2 (PCR) Blood Type Antibody Screen 08/26/20 08/26/20 08/26/20 15:40 16:00 16:00 WBC RBC Hgb Hct MCV MCH MCHC RDW Std Deviation RDW Coeff of Gopal Plt Count MPV Immature Gran % (Auto) Neut % (Auto) Lymph % (Auto) [place] % (Auto) Eos % (Auto) Baso % (Auto) Neut # (Auto) Lymph # (Auto) [place] # (Auto) Eos # (Auto) Baso # (Auto) Immature Gran # (Auto) Polychromasia Anisocytosis PT INR APTT PTT Ratio VBG pH VBG pCO2 VBG pO2 VBG HCO3 VBG O2 Saturation VBG Base Excess Barometric Pressure Sodium Potassium Chloride Carbon Dioxide Anion Gap BUN Creatinine Est Cr Clr Drug Dosing Est GFR ( Amer) Est GFR (Non-Af Amer) BUN/Creatinine Ratio Glucose POC Glucose Estimat Average Glucose Hemoglobin A1c Calcium Magnesium Total Bilirubin AST ALT Alkaline Phosphatase Troponin I NT-Pro-B Natriuret Pep Total Protein Albumin Globulin Albumin/Globulin Ratio Urine Color Yellow Urine Appearance Clear Urine pH 5.0 Ur Specific [place] 1.012 Urine Protein Trace H Urine Glucose (UA) Negative Urine Ketones Negative Urine Blood Negative Urine Nitrite Negative Urine Bilirubin Negative Urine Urobilinogen Negative Ur Leukocyte Esterase 1+ H Urine WBC (Auto) 10-30 H Urine RBC (Auto) 0-4 U Hyaline Cast (Auto) 1-5 U Epithel Cells (Auto) 5-10 H Urine Bacteria (Auto) Negative COVID-19 Eval Order Covid19 at [facility] SARS-CoV-2 (PCR) NEGATIVE Blood Type Antibody Screen 08/26/20 08/26/20 08/26/20 16:04 16:29 20:17 WBC RBC Hgb Hct MCV MCH MCHC RDW Std Deviation RDW Coeff of Gopal Plt Count MPV Immature Gran % (Auto) Neut % (Auto) Lymph % (Auto) [place] % (Auto) Eos % (Auto) Baso % (Auto) Neut # (Auto) Lymph # (Auto) [place] # (Auto) Eos # (Auto) Baso # (Auto) Immature Gran # (Auto) Polychromasia Anisocytosis PT INR APTT PTT Ratio VBG pH 7.35 L VBG pCO2 61 H VBG pO2 34 VBG HCO3 32 VBG O2 Saturation 62.9 VBG Base Excess 5.5 Barometric Pressure 732.1 Sodium Potassium Chloride Carbon Dioxide Anion Gap BUN Creatinine Est Cr Clr Drug Dosing Est GFR ( Amer) Est GFR (Non-Af Amer) BUN/Creatinine Ratio Glucose POC Glucose 129 H Estimat Average Glucose Hemoglobin A1c Calcium Magnesium Total Bilirubin AST ALT Alkaline Phosphatase Troponin I NT-Pro-B Natriuret Pep Total Protein Albumin Globulin Albumin/Globulin Ratio Urine Color Urine Appearance Urine pH Ur Specific [place] Urine Protein Urine Glucose (UA) Urine Ketones Urine Blood Urine Nitrite Urine Bilirubin Urine Urobilinogen Ur Leukocyte Esterase Urine WBC (Auto) Urine RBC (Auto) U Hyaline Cast (Auto) U Epithel Cells (Auto) Urine Bacteria (Auto) COVID-19 Eval Order SARS-CoV-2 (PCR) Blood Type O Positive Antibody Screen NEGATIVE 08/27/20 08/27/20 08/27/20 06:34 06:34 06:34 WBC 6.40 RBC 2.72 L Hgb 8.6 L Hct 28.5 L MCV 104.8 H MCH 31.6 MCHC 30.2 L RDW Std Deviation 68.3 H RDW Coeff of Gopal 18.1 H Plt Count 168 MPV 9.2 Immature Gran % (Auto) Neut % (Auto) Lymph % (Auto) [place] % (Auto) Eos % (Auto) Baso % (Auto) Neut # (Auto) Lymph # (Auto) [place] # (Auto) Eos # (Auto) Baso # (Auto) Immature Gran # (Auto) Polychromasia Anisocytosis PT INR APTT PTT Ratio VBG pH VBG pCO2 VBG pO2 VBG HCO3 VBG O2 Saturation VBG Base Excess Barometric Pressure Sodium 142 Potassium 4.1 D Chloride 107 Carbon Dioxide 31 Anion Gap 4.0 BUN 35 H Creatinine 1.52 H Est Cr Clr Drug Dosing 61.6 Est GFR ( Amer) 53.0 Est GFR (Non-Af Amer) 45.8 BUN/Creatinine Ratio 22.8 H Glucose 147 H POC Glucose Estimat Average Glucose 111 Hemoglobin A1c 5.5 Calcium 8.8 Magnesium 2.4 Total Bilirubin 0.4 AST 15 ALT 15 Alkaline Phosphatase 121 H Troponin I NT-Pro-B Natriuret Pep Total Protein 7.9 Albumin 3.3 L Globulin 4.6 H Albumin/Globulin Ratio 0.7 L Urine Color Urine Appearance Urine pH Ur Specific [place] Urine Protein Urine Glucose (UA) Urine Ketones Urine Blood Urine Nitrite Urine Bilirubin Urine Urobilinogen Ur Leukocyte Esterase Urine WBC (Auto) Urine RBC (Auto) U Hyaline Cast (Auto) U Epithel Cells (Auto) Urine Bacteria (Auto) COVID-19 Eval Order SARS-CoV-2 (PCR) Blood Type Antibody Screen 08/27/20 07:10 WBC RBC Hgb Hct MCV MCH MCHC RDW Std Deviation RDW Coeff of Gopal Plt Count MPV Immature Gran % (Auto) Neut % (Auto) Lymph % (Auto) [place] % (Auto) Eos % (Auto) Baso % (Auto) Neut # (Auto) Lymph # (Auto) [place] # (Auto) Eos # (Auto) Baso # (Auto) Immature Gran # (Auto) Polychromasia Anisocytosis PT INR APTT PTT Ratio VBG pH VBG pCO2 VBG pO2 VBG HCO3 VBG O2 Saturation VBG Base Excess Barometric Pressure Sodium Potassium Chloride Carbon Dioxide Anion Gap BUN Creatinine Est Cr Clr Drug Dosing Est GFR ( Amer) Est GFR (Non-Af Amer) BUN/Creatinine Ratio Glucose POC Glucose 161 H Estimat Average Glucose Hemoglobin A1c Calcium Magnesium Total Bilirubin AST ALT Alkaline Phosphatase Troponin I NT-Pro-B Natriuret Pep Total Protein Albumin Globulin Albumin/Globulin Ratio Urine Color Urine Appearance Urine pH Ur Specific [place] Urine Protein Urine Glucose (UA) Urine Ketones Urine Blood Urine Nitrite Urine Bilirubin Urine Urobilinogen Ur Leukocyte Esterase Urine WBC (Auto) Urine RBC (Auto) U Hyaline Cast (Auto) U Epithel Cells (Auto) Urine Bacteria (Auto) COVID-19 Eval Order SARS-CoV-2 (PCR) Blood Type Antibody Screen
--- NOTE | 2020-08-27 12:51 | Pharmacy Report ---
Pharmacy Glycemic Short Note 2 - Date of Service August 27, 2020 - Glycemic Short BSG Results (Last 24 hours): 08/26/20 08/26/20 08/27/20 15:40 20:17 06:34 Glucose 144 H 147 H POC Glucose 129 H 08/27/20 08/27/20 07:10 11:28 Glucose POC Glucose 161 H 205 H OUTPATIENT ANTIDIABETIC REGIMEN: * NPH 80 units SQ QAM, 20 units QPM * Regular insulin 54 units SQ QAM, 18 units SQ QPM * CF 18mg/dl/unit ASSESSMENT: * 70 year old male admitted with SOB/volume overload, on basal bolus insulin as outpatient * Will continue NPH for basal and use Novolog for bolus insulin while inpatient * Patient had 10 units of NPH last night, fasting blood sugar 161mg/dl this morning * Prior to lunch blood sugar 205mg/dl, will tighten CF/CR and increase NPH doses * A1c 5.5%, likely experiencing hypoglycemia at home PLAN FOR INPATIENT GLYCEMIC CONTROL: * Hold outpatient oral diabetes medications * Basal insulin * NPH 30 -70 units SQ qAM based on blood sugar * NPH 20 units with dinner * Bolus insulin * NovoLog per scale ACHS or Q6hrs while NPO * Goal Range: Low 110 mg/dL - High 140 mg/dL * Correction Factor: 12 mg/dL/unit * Nutritional / Prandial insulin per carb ratio of 1 unit per 4 grams CHO consumed PLAN FOR DISCHARGE: * A1c 5.5%, may be experiencing hypoglycemia at home, recommendations to be determined
[2020-08-27] MEDS ORDERED: INSULIN HUMAN NPH SC SCH (16:30)
--- NOTE | 2020-08-27 18:58 | Hospitalist Progress Note ---
Date of Service August 27, 2020 Assessment & Plan (1) Shortness of breath: , acute decompensated or heart failure, Right heart failure with pulmonary hypertension Presents with volume overload/ anasarca Patient was given Lasix 40 mg IV in the ER, which has been continued, Appreciate input from cardiology Strict I/Os, fluid restriction, place banda cath Shortness of breath, hypoxia: Multifactorial, pulmonary hypertension, COPD, with severe obstructive sleep apnea VBG on admission pH of 7.35, CO2 61, bicarb 32-encouraged wearing BiPAP tonight, patient noncompliance at home - likely chronically retains Co2. - Continue diuresis-Per cardiology Reports improvement of symptoms -CKD stage IV -Monitor renal function while getting IV Lasix -MGUS with progressive anemia recently requiring transfusion of packed red blood cells as well as IV iron replacement. 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 (6) CKD (chronic kidney disease): - History of such, baseline 1.7-1.8, stage III, on admission cr=1.55, BUN 33 -Monitor creatinine while getting diuresis (7) BPH (benign prostatic hyperplasia): - Banda catheter, continue flomax (8) Obesity, Class III, BMI 40-49.9 (morbid obesity): -BMI of 46.8, diet and exercise encouraged (9) Venous stasis ulcers of both lower extremities: -Sent on admission following with wound clinic as outpatient - wound consulted consult (10) Chronic venous insufficiency: -Has recently underwent sclerotherapy per Dr. Villalba's office, see HPI (11) MGUS (monoclonal gammopathy of unknown significance): - Received Retacrit injection on 08/19/2020 and today 08/26/2020, pt hgb was 7.6 as an outpatient, baseline is 8.0, currently no need for transfusion. DVT PPx: -High risk for lower extremity DVT given morbid obesity lower extremity chronic venous stasis with severe edema. Order for subcu heparin CODE: Full code Dispo: Continue to monitor in PCU Admission and Anticipated Discharge Date Admission Date: August 26, 2020 Subjective Follow-up visit for acute decompensated heart failure: Patient reports that he is definitely feeling much better since admission, Still significantly orthopneic, sitting up in chair, morbidly obese Denies of any chest heaviness, no cough, No fever or chills Review of Systems Review of Systems: All systems reviewed & are unremarkable except as noted in Subjective Physical Exam Constitutional: WD/WN, vitals as above + morbidly obese Eyes: PERRL, conjunctivae normal, anicteric sclerae ENMT: external ear and nose normal, oropharynx normal Neck: trachea midline, no thyromegaly Respiratory: Auscultation: + diminished lung sounds, + crackles and + wheezes Cardiovascular: Rate/Rhythm: regular rate and regular rhythm Extremities: + edema (Bilateral +3 pitting edema, chronic venous stasis changes,) Gastrointestinal (Abdomen): Percussion/Palpation: abdomen soft (Distended) Skin: Bilateral chronic venous stasis change on lower extremity, with small open wound draining serous Neurologic: PERRL, EOMI, accommodation nl, no face palsy, no dysarthria Psychiatric: Orientation: alert and oriented x 3 Results & Data Results & Data ([facility]) Vital Signs (Past 12 Hours) Vital Signs Temp Pulse Pulse Resp BP Pulse Ox 08/27/20 16:06 36.6 C 63 18 163/69 H 98 08/27/20 15:01 63 08/27/20 14:47 64 20 95 08/27/20 11:47 36.3 C L 61 21 161/64 H 99 08/27/20 08:00 71 08/27/20 07:28 36.4 C L 69 20 169/77 H 95
[2020-08-27] MEDS: ATORVASTATIN 40 MG TAB PO SCH (21:32)
[2020-08-27] MEDS: carvediloL 25 MG TAB PO SCH (21:33)
[2020-08-27] MEDS: PANTOprazole 40 MG TAB PO SCH (21:33)
--- NOTE | 2020-08-28 06:28 | Electrocardiogram Report ---
Test Reason : Blood Pressure : / mmHG Vent. Rate : 061 BPM Atrial Rate : 061 BPM P-R Int : 152 ms QRS Dur : 158 ms QT Int : 498 ms P-R-T Axes : 000 156 157 degrees QTc Int : 501 ms Sinus rhythm with occasional Premature ventricular complexes Right bundle branch block Probable Limb lead reversal Abnormal ECG When compared with ECG of 26-AUG-2020 15:54, Premature ventricular complexes are now Present Limb lead reversal is now Present Confirmed by Silver Brumfiled ([id number]) on 08/28/2020 6:28:17 AM Referred By: REFERRED SELF Confirmed By:Silver Brumfield
[2020-08-28] MEDS ORDERED: INSULIN HUMAN NPH SC SCH ×2 (07:30→16:30)
[2020-08-28] MEDS: CETIRIZINE HCL 10 MG TABLET PO SCH (08:43)
[2020-08-28] MEDS: FUROSEMIDE 40 MG in SYRINGE 0 ML IV SCH ×2 (08:43→21:06)
[2020-08-28] MEDS: carvediloL 25 MG TAB PO SCH ×2 (08:43→21:04)
[2020-08-28] MEDS: FERROUS SULFATE 325 MG TAB PO SCH (08:43)
[2020-08-28] MEDS: lisinopril 40 MG TAB PO SCH (08:44)
[2020-08-28] MEDS: CYANOCOBALAMIN 500 MCG TABLET (VITAMIN B-12) PO SCH (08:44)
[2020-08-28] MEDS: CHOLECALCIFEROL 1,000 UNITS 25 MCG TAB PO SCH (08:44)
[2020-08-28] MEDS: cloNIDine HCL 0.3 MG TAB PO SCH ×2 (08:44→21:04)
[2020-08-28] MEDS: hydrALAZINE TAB 50 MG TAB PO SCH ×3 (08:44→21:03)
[2020-08-28] MEDS: FINASTERIDE 5 MG TAB PO SCH (08:44)
[2020-08-28] MEDS: ASCORBIC ACID 500 MG TAB PO SCH (08:44)
[2020-08-28] MEDS: ASPIRIN 81 MG ECTAB PO SCH (08:44)
[2020-08-28] MEDS: TERAZOSIN HCL 5 MG CAP PO SCH (08:45)
[2020-08-28] MEDS: INSULIN ASPART 100 UNITS/ML 3 ML PEN SC SCH ×4 (08:45→21:06)
--- NOTE | 2020-08-28 09:05 | Cardiology Progress Note ---
Date of Service August 28, 2020 Assessment & Plan (1) Obesity, Class III, BMI 40-49.9 (morbid obesity): (2) Obstructive sleep apnea of adult: (3) Venous stasis ulcers of both lower extremities: (4) Lower extremity edema: (5) MGUS (monoclonal gammopathy of unknown significance): (6) Shortness of breath: This is a very complex patient. His shortness of breath is multifactorial including chronic right heart failure due to obesity with hypoventilation syndrome and sleep apnea along with anemia from his monoclonal gammopathy. Continue IV diuresis with 40 mg Lasix twice daily. BMP remaining stable. Repeat BMP now and daily. Replace electrolytes as necessary. Goal potassium 4.0. Anemia is a driving factor for his Heart failure. Goal Hemoglobin of 10.0- will defer to primary team for anemia management. He is already on multiple antihypertensive medications and it may be difficult to bring his blood pressure into the normal range. Due to kidney function there is limited options left for blood pressure control. Spoke with bedside nurse, recommend repeating BP after 2 hours after medication administration. Strongly encouraged CPAP compliance, patient has been refusing. Continue to follow with wound care for lower extremity venous stasis ulcers elevate legs when not up and active. Recommend PT, patient lives at home with and is normally independent. Admission and Anticipated Discharge Date Admission Date: August 26, 2020 Supervising Physician Co-Signing Physician Notes Patient seen and examined with Candie PACKER. Agree with findings and assessment as above. already on multiple antihypertensive medications and it may be difficult to bring his blood pressure into the normal range. Due to kidney function there is limited options left for blood pressure control. Spoke with bedside nurse, recommend repeating BP after 2 hours after medication administration. Strongly encouraged CPAP compliance, patient has been refusing. Subjective This is a 70-year-old male patient with a complex past medical history who follows with Delmer Ortega PA-C. The patient has a history of obesity with sleep apnea, episodes of acute decompensated right heart failure due to pulmonary hypertension, chronic right bundle branch block, PSVT, chronic stage IV kidney disease, COPD and MGUS with the need for transfusions and iron replacement due to anemia. Unfortunately, he is also had noncompliance in the past. Please only he was outside in the heat he overdid it. He did not feel well and had some shortness of breath. He decided to come into the emergency department. Yesterday patient's carvedilol was increased to 25 mg twice daily due to hypertension. [place] that his shortness of breath is multifactorial including chronic right-sided heart failure due to obesity and hypoventilation syndrome with obstructive sleep apnea along with anemia from his monoclonal gammopathy. IV diuresis with 40 mg twice daily was continued. Today upon exam patient was sitting in chair with no acute distress. Had to sleep in the chair over night due to significant orthopnea. Did "slide" out of the chair over night when he was sleeping. Did not injure himself. Continues to have SEPULVEDA, 1 assist to the restroom. + Course cough. Leg swelling persists. Britton in place. Weight down about 3 lbs over night. Blood pressure this morning at 8 AM was 182/69 prior to medications. Pulse is 61. Patient is on 3 L nasal cannula with an oxygen saturation of 98%. Does not normally use O2 at home. No chest pain, palpitations, dizziness, syncope or near syncope. No fever, chills, cough, hematochezia, melena, or hemoptysis. Following with wound care for BL lower extremities. Patient is refusing cpap. Past medical history: -Right-sided heart failure, with pulmonary hypertension -Hypertension with hypertensive heart disease -Known noncompliance -Chronic right bundle branch block -Tachybradycardia syndrome, prior monitoring of multiple pauses ranging from 5.5 to 10.1 seconds during presumed sleep time hours in April 2017 by [place]. EP felt the patient was having sinus pauses with high degree AV block during hours of sleep-did not feel permanent pacemaker was warranted at that time. -Asymptomatic supraventricular tachycardia -CKD stage IV -FLETCHER -COPD -MGUS with progressive anemia recently requiring transfusion of packed red blood cells as well as IV iron replacement. Review of Systems Review of Systems: All systems reviewed & are unremarkable except as noted in HPI & below Physical Exam Physical Exam: General: No acute distress. A+Ox3. HEENT: Normocephalic. Atraumatic. PERRL. EOMI. Conjunctiva and sclera clear. NECK: No carotid bruits. Unable to assess neck veins due to body habitis. Heart: RRR. S1 and S2 noted.+ 2/6 Systolic murmur. No rubs, gallops. PMI non displaced. Lungs: Diminished lung sounds bilaterally. +Crackles, no wheezes Abdomen: Normal bowel sounds. Obese/Taut. Nontender. No masses or organomegaly. No abdominal bruits. Extremities: +2 BLLE pitting edema to shins. No clubbing or cyanosis. Pulses: radial=2/4, posterior tibial=2/4, dorsalis pedis = 2/4. NEURO: No focal deficits. PSYCH: Normal. Results & Data ([facility]) Vital Signs (Past 12 Hours) Vital Signs Temp Pulse Pulse Resp BP Pulse Ox 08/28/20 07:49 36.6 C 61 22 182/69 H 98 08/28/20 03:38 36.4 C L 67 17 135/70 97 08/28/20 01:03 69 08/28/20 00:43 36.4 C L 62 24 172/74 H 97 08/27/20 22:45 36.7 C 64 17 164/63 H 95 Echocardiogram 08/27/2020 LVEF 65 to 70% with mild concentric LVH Note wall motion abnormalities Grade 2 diastolic dysfunction Aortic valve sclerosis mild without significant aortic stenosis
[2020-08-28 10:39] LABS: BUN Creatinine Ratio 27.4 (10-20); Calcium 8.3 mg/dl (8.5-10.1); Creatinine Clr Calc Pharmacy 53.2 ml/min; Est GFR (African American) 44.7 ml/min; Est GFR (Non-African American) 38.6 ml/min; Potassium 4.2 mmol/L (3.5-5.1)
--- NOTE | 2020-08-28 11:57 | Pharmacy Report ---
Pharmacy Glycemic Short Note 2 - Date of Service August 28, 2020 - Glycemic Short BSG Results (Last 24 hours): 08/27/20 08/27/20 08/28/20 16:25 21:04 01:52 Glucose POC Glucose 90 166 H 56 L* 08/28/20 08/28/20 08/28/20 01:57 02:14 07:10 Glucose POC Glucose 53 L* 74 98 08/28/20 08/28/20 07:20 11:14 Glucose 90 POC Glucose 242 H OUTPATIENT ANTIDIABETIC REGIMEN: * NPH 80 units SQ QAM, 20 units QPM * Regular insulin 54 units SQ QAM, 18 units SQ QPM * CF 18mg/dl/unit ASSESSMENT: 08/28 * Patient with hypoglycemia around 0200 today, BSG 56mg/dl * decrease PM NPH and reduce dose this morning x 1 day * Loosen CF/CR slightly to prevent further hypoglycemia 08/27 * 70 year old male admitted with SOB/volume overload, on basal bolus insulin as outpatient * Will continue NPH for basal and use Novolog for bolus insulin while inpatient * Patient had 10 units of NPH last night, fasting blood sugar 161mg/dl this morning * Prior to lunch blood sugar 205mg/dl, will tighten CF/CR and increase NPH doses * A1c 5.5%, likely experiencing hypoglycemia at home PLAN FOR INPATIENT GLYCEMIC CONTROL: * Basal insulin * NPH 55 units SQ x 1 dose this AM then 20 -60 units SQ qAM based on blood sugar * DECREASE: NPH 10 units with dinner * Bolus insulin * NovoLog per scale ACHS or Q6hrs while NPO * Goal Range: Low 110 mg/dL - High 140 mg/dL * Correction Factor: 15 mg/dL/unit * Nutritional / Prandial insulin per carb ratio of 1 unit per 5 grams CHO consumed PLAN FOR DISCHARGE: * A1c 5.5%, may be experiencing hypoglycemia at home, recommendations to be determined
[2020-08-28] MEDS: ACETAMINOPHEN 325 MG TAB PO PRN (16:09)
--- NOTE | 2020-08-28 17:17 | Hospitalist Progress Note ---
Date of Service August 28, 2020 Assessment & Plan (1) Shortness of breath: pt appears to be more sedated , lathergic today ordered for stat ABG , will place on Bipap if noted for CO2 retention per nursing pt has been refusin Bipap , acute decompensated or heart failure, Right heart failure with pulmonary hypertension Presents with volume overload/ anasarca pt is continued with IV lasix Appreciate input from cardiology Strict I/Os, fluid restriction, place banda cath Shortness of breath, hypoxia: Multifactorial, pulmonary hypertension, COPD, with severe obstructive sleep apnea VBG on admission pH of 7.35, CO2 61, bicarb 32-encouraged wearing BiPAP tonight, patient noncompliance at home - likely chronically retains Co2. -stat ABG ordered as pt noted to be more sedated Continue diuresis-Per cardiology Reports improvement of symptoms -CKD stage IV Cr 1.7 -Monitor renal function while getting IV Lasix -MGUS with progressive anemia recently requiring transfusion of packed red blood cells as well as IV iron replacement. (2) HTN (hypertension): -Difficult to control -On multiple antihypertensives hydralazine 100 mg TID, coreg dose adjusted 25 mg BID , clonidine 0.3 mg BID, Terazosin 5 mg daily, lisinopril 40 mg daily (3) Dyslipidemia: -Continue atorvastatin 40 mg daily (4) Diabetes: -Continue NPH, NovoLog, ISS with Accu-Cheks -Last A1c was 6.2 on 05/15/2020 -Glycemic pharmacy consulted (5) Neuropathy: -History of such, continue Tylenol as needed, does not appear that the patient is on specific medication for neuropathy - Noted hx of [place] palsy causing right sided facial droop as well as right upper extremity weakness is chronic. (6) CKD (chronic kidney disease): - History of such, baseline 1.7-1.8, stage III, on admission cr=1.55, BUN 33 -Monitor creatinine while getting diuresis (7) BPH (benign prostatic hyperplasia): - Banda catheter, continue flomax (8) Obesity, Class III, BMI 40-49.9 (morbid obesity): -BMI of 46.8, diet and exercise encouraged (9) Venous stasis ulcers of both lower extremities: -Sent on admission following with wound clinic as outpatient - wound consulted consult (10) Chronic venous insufficiency: -Has recently underwent sclerotherapy per Dr. Villalba's office, see HPI (11) MGUS (monoclonal gammopathy of unknown significance): - Received Retacrit injection on 08/19/2020 and today 08/26/2020, pt hgb was 7.6 as an outpatient, baseline is 8.0, currently no need for transfusion. DVT PPx: -High risk for lower extremity DVT given morbid obesity lower extremity chronic venous stasis with severe edema. Order for subcu heparin CODE: Full code Dispo: Continue to monitor in PCU called , left voice message with update Admission and Anticipated Discharge Date Admission Date: August 26, 2020 Subjective Follow-up visit for acute decompensated heart failure: more sedated today wakes up to voice says his breathing is better has been sleeping on chair , due to sever orthopnea no fever or chills , has ongoing non productive cough Review of Systems Review of Systems: All systems reviewed & are unremarkable except as noted in Subjective Physical Exam Constitutional: WD/WN, vitals as above + morbidly obese Eyes: PERRL, conjunctivae normal, anicteric sclerae ENMT: external ear and nose normal, oropharynx normal Neck: trachea midline, no thyromegaly Respiratory: Auscultation: + diminished lung sounds, + crackles and + wheezes Cardiovascular: Rate/Rhythm: regular rate and regular rhythm Extremities: + edema (Bilateral +3 pitting edema, chronic venous stasis changes,) Gastrointestinal (Abdomen): Percussion/Palpation: abdomen soft (Distended) Neurologic: sedated , lethergic today Results & Data Results & Data ([facility]) Vital Signs (Past 12 Hours) Vital Signs Temp Pulse Pulse Resp BP Pulse Ox 08/28/20 15:45 60 08/28/20 15:32 36.6 C 58 L 24 159/77 H 95 08/28/20 11:56 36.4 C L 109 H 24 105/56 L 95 08/28/20 08:00 63 08/28/20 07:49 36.6 C 61 22 182/69 H 98
[2020-08-28 18:27] LABS: Base Excess ABG 3.6 mEq/L (-9-1.8); HCO3 ABG 31 mmol/L (19-24); Oxygen Saturation ABG 95.6 % (90-95); PCO2 ABG 65 mmHg (35-46); PO2 ABG 94 mmHg (80-95)
[2020-08-28 18:36] LABS: Allen Test Pos (Pos)
[2020-08-28] MEDS: ATORVASTATIN 40 MG TAB PO SCH (21:03)
[2020-08-28] MEDS: PANTOprazole 40 MG TAB PO SCH (21:05)
[2020-08-28] MEDS: HEPARIN SOD 5,000 UNIT/0.5 ML VIAL SQ SCH (21:05)
[2020-08-29] MEDS ORDERED: LORazepam 0.25 MG/0.5 ML VIAL IV STA (02:06)
--- NOTE | 2020-08-29 05:50 | Electrocardiogram Report ---
Test Reason : Blood Pressure : / mmHG Vent. Rate : 060 BPM Atrial Rate : 060 BPM P-R Int : 168 ms QRS Dur : 152 ms QT Int : 490 ms P-R-T Axes : 094 031 021 degrees QTc Int : 490 ms Normal sinus rhythm Right bundle branch block Abnormal ECG When compared with ECG of 27-AUG-2020 06:09, Premature ventricular complexes are no longer Present Limb lead reversal is no longer Present Confirmed by Silver Brumfield ([id number]) on 08/29/2020 5:49:43 AM Referred By: REFERRED SELF Confirmed By:Silver Brumfield
[2020-08-29] MEDS: HEPARIN SOD 5,000 UNIT/0.5 ML VIAL SQ SCH ×3 (06:27→20:41)
[2020-08-29 07:10] LABS: iSTAT Art Bld Gas pCO2 Correct 96 mmHg (35-46); iSTAT Art Bld Gas pH Corrected 7.082 (7.35-7.45); iSTAT Arterial Blood Gas HCO3 29 meg/L (19-24); iSTAT Arterial Blood Gas pCO2 96 mmHg (35-46); iSTAT Arterial Blood Gas pH 7.08 (7.35-7.45); iSTAT Arterial Blood Gas pO2 76 mmHg (80-95); iSTAT Arterial Blood Gas pO2 C 76; iSTAT Carbon Dioxide 32 mmol/L (24-31); iSTAT Hematocrit 29 % (42-52); iSTAT Hemoglobin 9.9 g/dl (14.0-18.0); iSTAT Potassium 3.6 mmol/L (3.3-5.0); iSTAT Site Art Line; iSTAT Sodium 143 mmol/L (135-144)
[2020-08-29 07:17] LABS: BUN Creatinine Ratio 23.5 (10-20); Calcium 8.1 mg/dl (8.5-10.1); Creatinine Clr Calc Pharmacy 37.1 ml/min; Est GFR (African American) 28.9 ml/min; Magnesium 2.9 mg/dl (1.8-2.4); Potassium 3.6 mmol/L (3.5-5.1)
--- NOTE | 2020-08-29 07:18 | XRay Report ---
XR chest 1V portable HISTORY: s/p intubation, OG COMPARISON: Chest 08/26/2020. FINDINGS: Nasogastric tube terminates in the stomach. Endotracheal tube terminates approximately 4.5 cm from the jay. Near-complete opacification of the left hemithorax with left mediastinal shift. T his is new from the prior study and raises the possibility of partial collapse of the left lung which can be seen in the setting of mucous plugging/aspiration. No pneumothorax. There is diffuse intersti tial thickening within the right lung. IMPRESSION: 1. Satisfactory support line placement. 2. Near complete opacification of the left hemithorax with mild left mediastinal shift. This is new f rom the prior study and could represent partial left lung collapse due to mucous plugging/aspiration. Consider bronchoscopy for further evaluation.. 3. This finding was called/faxed to the referring physician following dictation. ACT 112: Negative or not required by law. Electronically signed by: Dustin Stearns M.D. 08/29/2020 7:17 AM
[2020-08-29] MEDS ORDERED: NOREPINEPHRINE/D5W 8 MG/508 ML IV ONE (07:20)
[2020-08-29 07:29] LABS: Hematocrit (blood only) 30.3 % (42-52); Hemoglobin 8.9 g/dL (14.0-18.0); Mean Corpuscular Hemoglobin 31.7 pg (25-34); Mean Corpuscular Hgb Conc 29.4 g/dL (32-36); Mean Corpuscular Volume 107.8 fL (80-100); Mean Platelet Volume 9.7 fL (7.4-10.4); Nucleated RBC # (auto) 0.03 K/uL (0-0); Nucleated RBC % (auto) 0.2 %; Platelet Count 209 K/uL (130-400); RDW Coefficient of Variation 18.2 % (11.5-14.5); RDW Standard Deviation 71.7 fL (36.4-46.3); Red Blood Count 2.81 M/uL (4.7-6.1); White Blood Count 16.34 K/uL (4.8-10.8)
[2020-08-29] MEDS ORDERED: STAT IV Infusion **Titration per Protocol STA (07:50)
[2020-08-29 07:53] LABS: Hematocrit (blood only) 25.2 % (42-52); Hemoglobin 7.5 g/dL (14.0-18.0); Mean Corpuscular Hemoglobin 32.1 pg (25-34); Mean Corpuscular Hgb Conc 29.8 g/dL (32-36); Mean Corpuscular Volume 107.7 fL (80-100); Platelet Count 150 K/uL (130-400); Red Blood Count 2.34 M/uL (4.7-6.1)
[2020-08-29 07:54] LABS: iSTAT Art Bld Gas pCO2 Correct 66 mmHg (35-46); iSTAT Art Bld Gas pH Corrected 7.264 (7.35-7.45); iSTAT Arterial Blood Gas HCO3 30 meg/L (19-24); iSTAT Arterial Blood Gas pCO2 66 mmHg (35-46); iSTAT Arterial Blood Gas pH 7.26 (7.35-7.45); iSTAT Arterial Blood Gas pO2 76 mmHg (80-95); iSTAT Arterial Blood Gas pO2 C 76; iSTAT Carbon Dioxide 32 mmol/L (24-31); iSTAT Hematocrit 24 % (42-52); iSTAT Hemoglobin 8.2 g/dl (14.0-18.0); iSTAT Potassium 4.2 mmol/L (3.3-5.0); iSTAT Site Art Line; iSTAT Sodium 142 mmol/L (135-144)
--- NOTE | 2020-08-29 07:55 | Communication Note ---
Date of Service: August 29, 2020 VAIBHAV TIERNEY called overhead at approximately 6:30 AM. Upon arriving at bedside, high-quality chest compressions were being performed by nursing staff. Brief bedside report was that patient had been agitated throughout the night. He received a small dose of Ativan earlier in the evening without great effect. Apparently, the patient continue to pull off leads and remove his oxygen. Nursing staff had noticed he had removed his leads. Upon arriving in the room, the patient appeared cyanotic. Leads were replaced and ekg monitor noted the patient to be in asystole. Chest compressions were started immediately at 0632. Patient had received 1 round of epinephrine just prior to my arrival. Initial pulse check demonstrated V. fib. Patient was bagged until ET tube was placed by myself. Please see separate note. Patient had coarse breath sounds with diffuse rales throughout all lung ross with frothy sputum noted into the ET tube. Compressions had continued. Patient received a total of 3 rounds of epinephrine. Patient did receive an initial amp of bicarbonate which did appear to help organize rhythm on monitor. Palpable pulses were noted at 0644. Blood gas was obtained which demonstrated a respiratory acidosis. Complex remained wide and irregular on monitor. Patient was given an additional amp of bicarb. This did seem to help narrow complex and improve consistency of rhythm. Patient transferred immediately to the ICU room 102 for ongoing management. esident note for ongoing ICU care. Upon arrival in the ICU, the patient had chest x-ray which demonstrated appropriate ET tube placement as well as OG tube placement. Repeat ABG was ordered and A-line was placed. Orders placed for Levophed given patient's new hypotension. Patient without any purposeful movements on exam. Appears to have some posturing like myoclonus equal bilaterally. Orders placed for CT head, chest, and abdomen/pelvis. Please see R I have personally spent 61 minutes of critical care time in the direct management of this patient. This is a life/limb threatening event. This includes time spent evaluating patient, direct bedside care, chart review, placing orders, interpretation of diagnostic studies, discussion with consultants, patient, and family members, as well as other required patient management activities. This time is exclusive of all separately billable procedures, and teaching time and separate from and in addition to any other critical care service time. Coding Level of Care Code Critical Care 1st 30-74 mins Time Spent (min) 61
[2020-08-29] MEDS ORDERED: NOREPINEPHRINE/D5W 8 MG/508 ML BAG IV SCH (08:00)
--- NOTE | 2020-08-29 08:08 | Procedure Note ---
Procedure Note Date of Service August 29, 2020 APC: Ruiz Wilks PA-C. Attending: Dr. Donovan Loredo time-out was completed verifying correct patient, procedure, site, positioning. Patient was evaluated and required intubation for respiratory failure in the setting of cardiac arrest. Sedative agent used: None Paralysis agent used: None Emergent consent was implied given patients rapidly declining clinical status and need for airway protection in the setting of cardiac arrest. The patient was prepared in the appropriate fashion. Sedation was not required in the setting of active CPR in the cardiac arrest patient. The patient was easily ventilated using [id number]. A 7.5 [place] endotracheal tube was placed under video laryngoscopy to 25 cm at the lip. The stylette was removed and balloon was inflated with 10mL of air. Appropriate Colorimetric change was appreciated. Bilateral breath sounds were heard without air sounds in the abdomen. Dr. Vega was present for the entire procedure. Post Intubation Chest X-ray confirms placement without pneumothorax. Patient tolerated the procedure well and there were no immediate complications. Coding CPT Codes Resuscitation - Resuscitation: 09593 Endotracheal Intubation, emergency ([id number]) [facility] [place]odes (Charges) Resuscitation Resuscitation: 04625 Endotracheal Intubation, emergency
--- NOTE | 2020-08-29 08:09 | Procedure Note ---
Procedure Note Date of Service August 29, 2020 Procedure: Arterial Line Placement Attending: Dr. Man APC: Ruiz Wilks PA-C Indication: Monitoring on Pressors Anesthesia: None Emergent consent implied in the setting of rapidly deteriorating clinical status in the setting of cardiac arrest with need for close hemodynamic monitoring as well as frequent ABGs. A time-out was completed verifying correct patient, procedure, site, positioning, and implant(s) or special equipment if applicable. Allens test was performed to ensure adequate perfusion. Patients LEFT wrist was prepped and draped in the usual sterile fashion. Ultrasound guidance was used to aid needle placement. A 20g Arrow arterial line was introduced into the LEFT Radial artery. Catheter was threaded, and the needle was removed with appropriate blood return. Good waveform was observed. The patient tolerated the procedure well. Confirmation of placement with ultrasound. Blood Loss: Minimal Complications: None Procedural Ultrasound Guidance: Procedure Date: 08/29/2020 Indication: Pressors, Frequent ABGs, Frequent Labs Attending: Dr. Man APC: Ruiz Wilks PA-C Artery Identified: YES Line confirmed in Artery with ultrasound: YES Complications: NONE Patient tolerated procedure: WELL Coding CPT Codes Tubes, Drains, and Vasc Access - Tubes, Drains, and Vasc Access: [id number] Place Catheter In Artery ([id number]) [facility] [place] Codes (Charges) Tubes, Drains, and Vasc Access Procedure 1: Tubes, Drains, and Vasc Access: [id number] Place Catheter In Artery
[2020-08-29 08:14] LABS: Albumin Level 2.9 gm/dl (3.4-5.0); Calcium 7.9 mg/dl (8.5-10.1); Creatinine Clr Calc Pharmacy 38.2 ml/min; Est GFR (African American) 29.9 ml/min; Est GFR (Non-African American) 25.8 ml/min; Potassium 4.2 mmol/L (3.5-5.1)
[2020-08-29 08:15] LABS: Albumin Globulin Ratio 0.7 (0.9-2); Bilirubin,Total 0.4 mg/dl (0.2-1); Total Protein 6.9 gm/dl (6.4-8.2); Troponin I 0.02 ng/ml (0-0.045)
[2020-08-29 08:16] LABS: Eosinophils # (auto) 0.09 K/uL (0-0.5); Eosinophils % (auto) 1.2 %; Immature Granulocytes # (auto) 0.03 K/uL (0.00-0.02); Immature Granulocytes % (auto) 0.4 %; Lymphocytes # (auto) 0.51 K/uL (1.2-3.4); Lymphocytes % (auto) 6.9 %; Monocytes % (auto) 8.1 %; Neutrophils # (auto) 6.17 K/uL (1.4-6.5); Neutrophils % (auto) 83.4 %; Polychromasia 1+
--- NOTE | 2020-08-29 08:18 | CT Scan Report ---
HEAD CT NONCONTRAST CT DOSE: HISTORY: s/p fall TECHNIQUE: Multiaxial CT images of the head were performed without the use of intravenous contrast. A utomated exposure control was utilized for this study. A dose lowering technique was utilized adheri ng to the principles of ALARA. Comparison: Head CT 04/12/2013. Findings: The paranasal sinuses and mastoid air cells are clear. The calvarium and skull base are int act. There is no mass, hematoma, midline shift, acute infarct. White matter hypodensity is nonspecifi c but suggestive of microvascular ischemic change. The ventricles and sulci demonstrate mild age-rela marcial involutional changes. Impression: No significant change compared to the prior study. No acute intracranial abnormality. ACT 112: Negative or not required by law. Electronically signed by: Dustin Stearns M.D. 08/29/2020 8:17 AM
--- NOTE | 2020-08-29 08:33 | CT Scan Report ---
CT SCAN OF THE CHEST, ABDOMEN, AND PELVIS WITHOUT IV CONTRAST CLINICAL HISTORY: Hypoxia. Status post cardiac arrest. COMPARISON STUDY: Chest CT dated 09/23/2007. Lumbar spine radiographs dated 09/23/2007. TECHNIQUE: Unenhanced CT scan of the chest, abdomen, and pelvis was performed from the thoracic inlet to the proximal femora. Images are reviewed in the axial, sagittal, and coronal planes. IV contrast was not administered for this examination. Note that the examination is suboptimal without oral and I V contrast. There is also motion artifact, as well as streak artifact from the arms which could not b e elevated above the chest or abdomen. A dose lowering technique was utilized adhering to the princip les of MONO. CT DOSE: 3837.41 mGy.cm FINDINGS: CHEST: Thyroid: The thyroid gland is enlarged and heterogeneous. A 3.5 cm low-attenuation nodule is noted in the left lobe. Subcentimeter nodules and a coarse calcification are seen on the right. Thoracic aorta: There is atherosclerotic calcification of the thoracic aorta, which is normal in michael armida and demonstrates standard 3-vessel arch anatomy. Heart: The heart is enlarged and without pericardial effusion. The coronary arteries are densely calc ified. Lungs and pleural spaces: An endotracheal tube terminates above the jay. Evaluation of the lung pa renchyma is significantly degraded by motion artifact. There are trace pleural effusions with dense b ibasilar airspace consolidation, right greater than left. There is dense consolidation and atelectasi s throughout the left upper lung. No pneumothorax is seen. The trachea is clear. Debris-filled the le ft upper lobe airways. There are scattered calcified granulomas. Calcified pleural plaque is seen at the right lung base. Mediastinum: Subcentimeter mediastinal lymph nodes are not pathologically enlarged by size criteria. Renée: Not well assessed without IV contrast. Axillae: There is no axillary lymphadenopathy. Bony thorax: The skeletal structures are heterogeneously osteopenic. No lytic or blastic lesions are identified. Degenerative change is seen throughout the shoulders and in the thoracic spine. Soft tissues: Gynecomastia is noted. Sebaceous cysts are noted in the right mid back and measure up t o 2.3 cm. ABDOMEN AND PELVIS: Liver: Evaluation of the liver is degraded by streak artifact. The unenhanced liver is cirrhotic in m orphology and heterogeneous in attenuation. There is nodularity of the surface contour. There is no i ntrahepatic biliary ductal dilatation. Gallbladder: There are numerous calcified gallstones with no CT evidence of acute cholecystitis. Spleen: The spleen is top normal in size measuring 13.2 cm in length. Pancreas: The unenhanced pancreas is grossly unremarkable. Adrenal glands: There is nodular thickening of the adrenal glands. Kidneys: The unenhanced kidneys demonstrate cortical atrophy and are without hydronephrosis. No renal calculi are identified. There is no evidence of contour deforming mass lesion. Abdominal vasculature: The abdominal aorta is normal in course and caliber noting advanced atheroscle rotic calcification. Stomach and bowel: A small hiatal hernia is noted. An enteric tube terminates in the mid stomach. The re is rectosigmoid fecal impaction and moderate constipation. Mild infiltration is seen around the re ctosigmoid. No bowel obstruction is identified. There are scattered colonic diverticula without CT ev idence of acute diverticulitis. The appendix is well-visualized and normal. Peritoneum: There is no intraperitoneal free air or abdominal ascites. There is a large fat-containin g umbilical hernia. Lymphadenopathy: A mildly enlarged left iliac chain node on image #356 measures 1.5 cm in short axis no additional enlarged lymph nodes are suggested throughout the abdomen and pelvis. Pelvic viscera: The bladder is decompressed around a Britton catheter and appears thick walled. Foci of intraluminal gas are nonspecific and likely related to instrumentation. The prostate gland is diminu tive and heterogeneous. There are right larger than left fat-containing inguinal hernias. Skeletal structures: The skeletal structures are heterogeneously osteopenic. There is moderate lumbos acral spondylosis. No lytic or blastic lesions are seen. IMPRESSION: 1. Endotracheal and enteric tubes are in place. 2. Cardiomegaly and trace pleural effusions. 3. Debris fills the left upper lobe airway and there is complete atelectasis/consolidation of the lef t upper lobe. There is also dense airspace consolidation at the lung bases. Correlate clinically for evidence of pneumonia/aspiration pneumonitis. Radiographic follow-up to resolution is recommended. 4. No pneumothorax. 5. Cirrhotic liver morphology. 6. There is rectosigmoid fecal impaction and moderate constipation. Mild infiltration is suggested ar ound the rectosigmoid. Correlate clinically for evidence of stercoral proctitis. 7. Cholelithiasis. 8. There is a 3.5 cm low-attenuation nodule in the left lobe of the thyroid gland. Nonemergent/outpat ient thyroid ultrasound is recommended for further assessment. 9. A mildly enlarged left iliac chain lymph node is nonspecific and may be reactive. 10. Additional findings as above. ACT 112: Negative or not required by law. Electronically signed by: Rui Bland M.D. 08/29/2020 8:31 AM
--- NOTE | 2020-08-29 08:41 | Cardiology Progress Note ---
Date of Service August 29, 2020 Assessment & Plan (1) Obesity, Class III, BMI 40-49.9 (morbid obesity): (2) Obstructive sleep apnea of adult: (3) Venous stasis ulcers of both lower extremities: (4) Lower extremity edema: (5) MGUS (monoclonal gammopathy of unknown significance): (6) Shortness of breath: (7) Cardiac arrest: As outlined in the chart the patient was agitated last night. He was not wearing his oxygen and pulling his leads off. He was given sedation earlier in the evening and then was noted to be cyanotic and unresponsive this morning. Patient had approximately 15 to 20 minutes of CPR before establishing an organized rhythm. He is now in the ICU and intubated. He has received no sedation since admission to the ICU but remains unresponsive. This patient is complex with multiple medical problems. At this time I would recommend supportive care with the hope that the patient will reestablish cognitive awareness. If he does not regain consciousness then his overall prognosis is poor and consideration should be given for palliative care. Admission and Anticipated Discharge Date Admission Date: August 26, 2020 Subjective The patient was transferred to the ICU following a cardiac arrest with resuscitation. He is currently intubated. Review of Systems Review of Systems: Unobtainable due to endotracheal tube Physical Exam Physical Exam: General: no acute distress and stated age Head: normocephalic, no masses, lesions, tenderness or abnormalities Eyes: conjunctiva are pink and non-injected, sclera clear Neck: supple, no adenopathy, no bruits, normal jugular venous pulse, no hepatojugular reflux Chest: normal shape and normal respiratory effort Lungs: clear to auscultation and percussion Cardiac Exam: - regular rate & rhythm, no murmurs gallops or rubs - normal S1, normal S2 Pulses: 2(+) throughout Abdomen: abdomen soft, non-tender, no abnormal masses and no hepatosplenomegaly Musculoskeletal: no gait disturbance, no joint inflammation, no deforming arthritis Extremities: no edema and no cyanosis Neuro: grossly normal exam Results & Data ([facility]) Vital Signs (Past 12 Hours) Vital Signs Temp Pulse Pulse Resp BP BP Pulse Ox 08/29/20 07:50 25 H 08/29/20 07:05 66 23 98 08/29/20 04:29 36.4 C L 82 20 173/63 H 91 08/29/20 01:17 59 L 08/28/20 22:32 36.4 C L 58 L 22 136/68 98 Laboratory Results Laboratory Results - last 24 hr 08/28/20 08/28/20 08/28/20 07:20 11:14 16:36 WBC RBC Hgb POC Hgb Hct POC Hct MCV MCH MCHC RDW Std Deviation RDW Coeff of Gopal Plt Count MPV Immature Gran % (Auto) Neut % (Auto) Lymph % (Auto) Miller % (Auto) Eos % (Auto) Baso % (Auto) Neut # (Auto) Lymph # (Auto) Miller # (Auto) Eos # (Auto) Baso # (Auto) Immature Gran # (Auto) Absolute Nucleated RBC Nucleated RBC % (auto) Polychromasia Sample Site POC pH POC pCO2 POC pO2 POC HCO3 POC Total CO2 POC Base Excess ABG pH ABG pH (Temp Correct) ABG pCO2 ABG pCO2 (Temp Corrct ABG pO2 POC ABG pO2 at Pt Temp ABG HCO3 POC ABG O2 Sat ABG O2 Saturation ABG Base Excess Elder Test Barometric Pressure Oxygen Given O2 Delivery Device POC Sodium Sodium 142 POC Potassium Potassium 4.2 Chloride 107 Carbon Dioxide 36 H Anion Gap -1.0 L BUN 48 H Creatinine 1.75 H Est Cr Clr Drug Dosing 53.2 Est GFR ( Amer) 44.7 Est GFR (Non-Af Amer) 38.6 BUN/Creatinine Ratio 27.4 H Glucose 90 POC Glucose 242 H 129 H Lactate Calcium 8.3 L Magnesium Total Bilirubin AST ALT Alkaline Phosphatase Ammonia Troponin I Total Protein Albumin Globulin Albumin/Globulin Ratio 08/28/20 08/28/20 08/29/20 17:58 20:42 00:14 WBC RBC Hgb POC Hgb Hct POC Hct MCV MCH MCHC RDW Std Deviation RDW Coeff of Gopal Plt Count MPV Immature Gran % (Auto) Neut % (Auto) Lymph % (Auto) Miller % (Auto) Eos % (Auto) Baso % (Auto) Neut # (Auto) Lymph # (Auto) Miller # (Auto) Eos # (Auto) Baso # (Auto) Immature Gran # (Auto) Absolute Nucleated RBC Nucleated RBC % (auto) Polychromasia Sample Site POC pH POC pCO2 POC pO2 POC HCO3 POC Total CO2 POC Base Excess ABG pH 7.30 L ABG pH (Temp Correct) ABG pCO2 65 H ABG pCO2 (Temp Corrct ABG pO2 94 POC ABG pO2 at Pt Temp ABG HCO3 31 H POC ABG O2 Sat ABG O2 Saturation 95.6 H ABG Base Excess 3.6 H Elder Test Pos Barometric Pressure 730.7 Oxygen Given 3L O2 Delivery Device POC Sodium Sodium POC Potassium Potassium Chloride Carbon Dioxide Anion Gap BUN Creatinine Est Cr Clr Drug Dosing Est GFR ( Amer) Est GFR (Non-Af Amer) BUN/Creatinine Ratio Glucose POC Glucose 106 H 87 Lactate Calcium Magnesium Total Bilirubin AST ALT Alkaline Phosphatase Ammonia Troponin I Total Protein Albumin Globulin Albumin/Globulin Ratio 08/29/20 08/29/20 08/29/20 06:52 06:52 06:54 WBC 16.34 H RBC 2.81 L Hgb 8.9 L POC Hgb 9.9 L Hct 30.3 L POC Hct 29 L MCV 107.8 H MCH 31.7 MCHC 29.4 L RDW Std Deviation 71.7 H RDW Coeff of Gopal 18.2 H Plt Count 209 MPV 9.7 Immature Gran % (Auto) Neut % (Auto) Lymph % (Auto) Miller % (Auto) Eos % (Auto) Baso % (Auto) Neut # (Auto) Lymph # (Auto) Miller # (Auto) Eos # (Auto) Baso # (Auto) Immature Gran # (Auto) Absolute Nucleated RBC 0.03 H Nucleated RBC % (auto) 0.2 Polychromasia Sample Site Art Line POC pH 7.08 L* POC pCO2 96 H POC pO2 76 L POC HCO3 29 H POC Total CO2 32 H POC Base Excess -1.0 ABG pH ABG pH (Temp Correct) 7.082 L* ABG pCO2 ABG pCO2 (Temp Corrct 96 H ABG pO2 POC ABG pO2 at Pt Temp 76 ABG HCO3 POC ABG O2 Sat 87.0 L ABG O2 Saturation ABG Base Excess Elder Test NA Barometric Pressure Oxygen Given O2 Delivery Device BagValve POC Sodium 143 Sodium 142 POC Potassium 3.6 Potassium 3.6 Chloride 105 Carbon Dioxide 29 Anion Gap 8.0 BUN 59 H Creatinine 2.51 H D Est Cr Clr Drug Dosing 37.1 Est GFR ( Amer) 28.9 Est GFR (Non-Af Amer) 25.0 BUN/Creatinine Ratio 23.5 H Glucose 266 H POC Glucose Lactate Calcium 8.1 L Magnesium 2.9 H Total Bilirubin AST ALT Alkaline Phosphatase Ammonia Troponin I Total Protein Albumin Globulin Albumin/Globulin Ratio 08/29/20 08/29/20 08/29/20 07:37 07:41 07:41 WBC 7.40 RBC 2.34 L Hgb 7.5 L POC Hgb 8.2 L Hct 25.2 L POC Hct 24 L MCV 107.7 H MCH 32.1 MCHC 29.8 L RDW Std Deviation 71.0 H RDW Coeff of Gopal 18.0 H Plt Count 150 MPV 9.0 Immature Gran % (Auto) 0.4 Neut % (Auto) 83.4 Lymph % (Auto) 6.9 Miller % (Auto) 8.1 Eos % (Auto) 1.2 Baso % (Auto) 0.0 Neut # (Auto) 6.17 Lymph # (Auto) 0.51 L Miller # (Auto) 0.60 H Eos # (Auto) 0.09 Baso # (Auto) 0.00 Immature Gran # (Auto) 0.03 H Absolute Nucleated RBC Nucleated RBC % (auto) Polychromasia 1+ Sample Site Art Line POC pH 7.26 L POC pCO2 66 H POC pO2 76 L POC HCO3 30 H POC Total CO2 32 H POC Base Excess 3.0 H ABG pH ABG pH (Temp Correct) 7.264 L ABG pCO2 ABG pCO2 (Temp Corrct 66 H ABG pO2 POC ABG pO2 at Pt Temp 76 ABG HCO3 POC ABG O2 Sat 92.0 ABG O2 Saturation ABG Base Excess Elder Test NA Barometric Pressure Oxygen Given O2 Delivery Device Ventilator POC Sodium 142 Sodium 141 POC Potassium 4.2 Potassium 4.2 D Chloride 105 Carbon Dioxide 29 Anion Gap 7.0 BUN 61 H Creatinine 2.44 H Est Cr Clr Drug Dosing 38.2 Est GFR ( Amer) 29.9 Est GFR (Non-Af Amer) 25.8 BUN/Creatinine Ratio 25.0 H Glucose 229 H POC Glucose Lactate Calcium 7.9 L Magnesium Total Bilirubin 0.4 AST 24 ALT 22 Alkaline Phosphatase 102 Ammonia Troponin I 0.020 Total Protein 6.9 Albumin 2.9 L Globulin 4.0 Albumin/Globulin Ratio 0.7 L 08/29/20 08/29/20 07:44 07:44 WBC RBC Hgb POC Hgb Hct POC Hct MCV MCH MCHC RDW Std Deviation RDW Coeff of Gopal Plt Count MPV Immature Gran % (Auto) Neut % (Auto) Lymph % (Auto) Miller % (Auto) Eos % (Auto) Baso % (Auto) Neut # (Auto) Lymph # (Auto) Miller # (Auto) Eos # (Auto) Baso # (Auto) Immature Gran # (Auto) Absolute Nucleated RBC Nucleated RBC % (auto) Polychromasia Sample Site POC pH POC pCO2 POC pO2 POC HCO3 POC Total CO2 POC Base Excess ABG pH ABG pH (Temp Correct) ABG pCO2 ABG pCO2 (Temp Corrct ABG pO2 POC ABG pO2 at Pt Temp ABG HCO3 POC ABG O2 Sat ABG O2 Saturation ABG Base Excess Elder Test Barometric Pressure Oxygen Given O2 Delivery Device POC Sodium Sodium POC Potassium Potassium Chloride Carbon Dioxide Anion Gap BUN Creatinine Est Cr Clr Drug Dosing Est GFR ( Amer) Est GFR (Non-Af Amer) BUN/Creatinine Ratio Glucose POC Glucose Lactate 2.8 H* Calcium Magnesium Total Bilirubin AST ALT Alkaline Phosphatase Ammonia 34.5 H Troponin I Total Protein Albumin Globulin Albumin/Globulin Ratio Diagnostic Findings The patient appears to be in a sinus rhythm with a right bundle branch block currently on telemetry. Medications Administered Current Inpatient Medications Acetaminophen (Acetaminophen 325 Mg Tab) 650 mg PO Q4H PRN PRN Reason: Pain or Fever Stop: 09/25/20 19:48 Last Admin: 08/28/20 16:09 Dose: 650 mg Documented by: Al Hydrox/Mg Hydrox/Simethicone (Aluminum/Magnesium Susp 30 Ml Udc) 15 ml PO Q4H PRN PRN Reason: Dyspepsia Stop: 09/25/20 19:48 Albuterol (Albuterol Hfa 8 Gm Inhaler) 1 puffs INH QID PRN PRN Reason: sob Stop: 09/25/20 20:03 Last Admin: 08/27/20 14:45 Dose: 1 puffs Documented by: Ascorbic Acid (Ascorbic Acid 500 Mg Tab) 250 mg PO DAILY CONNIE Stop: 09/26/20 08:59 Last Admin: 08/28/20 08:44 Dose: 250 mg Documented by: Aspirin (Aspirin 81 Mg Ectab) 81 mg PO DAILY CONNIE Stop: 09/26/20 08:59 Last Admin: 08/28/20 08:44 Dose: 81 mg Documented by: Atorvastatin Calcium (Atorvastatin 40 Mg Tab) 40 mg PO HS CONNIE Stop: 09/25/20 20:59 Last Admin: 08/28/20 21:03 Dose: 40 mg Documented by: Carvedilol (Carvedilol 25 Mg Tab) 25 mg PO BID CONNIE Stop: 09/26/20 20:59 Last Admin: 08/28/20 21:04 Dose: 25 mg Documented by: Cetirizine HCl (Cetirizine Hcl 10 Mg Tablet) 5 mg PO DAILY CONNIE Stop: 09/26/20 08:59 Last Admin: 08/28/20 08:43 Dose: 5 mg Documented by: Clonidine HCl (Clonidine Hcl 0.3 Mg Tab) 0.3 mg PO BID CONNIE Stop: 09/25/20 20:59 Last Admin: 08/28/20 21:04 Dose: 0.3 mg Documented by: Cyanocobalamin (Cyanocobalamin 500 Mcg Tablet (Vitamin B-12)) 1,000 mcg PO DAILY CONNIE Stop: 09/26/20 08:59 Last Admin: 08/28/20 08:44 Dose: 1,000 mcg Documented by: Dextrose (Dextrose 50% 50 Ml Syringe) 25 - 50 ml IV UD PRN; Protocol PRN Reason: Hypoglycemia Protocol Stop: 09/25/20 19:48 Ferrous Sulfate (Ferrous Sulfate 325 Mg Tab) 325 mg PO DAILY CONNIE Stop: 09/26/20 08:59 Last Admin: 08/28/20 08:43 Dose: 325 mg Documented by: Finasteride (Finasteride 5 Mg Tab) 5 mg PO DAILY CONNIE Stop: 09/26/20 08:59 Last Admin: 08/28/20 08:44 Dose: 5 mg Documented by: Glucagon (Glucagon For Inj 1 Mg Vial) 1 mg SQ UD PRN; Protocol PRN Reason: Hypoglycemia Protocol Stop: 09/25/20 19:48 Glucose (Glucose 10 Tabs/Tube) 4 - 8 tabs PO UD PRN; Protocol PRN Reason: Hypoglycemia Protocol Stop: 09/25/20 19:48 Glucose (Glucose 40% Gel 15 Gm Tube) 15 - 30 gm PO UD PRN; Protocol PRN Reason: Hypoglycemia Protocol Stop: 09/25/20 19:48 Heparin Sodium (Porcine) (Heparin Sod 5,000 Unit/0.5 Ml Vial) 7,500 units SQ Q8 CONNIE Stop: 09/27/20 21:59 Last Admin: 07/09/21 06:27 Dose: 7,500 units Documented by: Hydralazine HCl (Hydralazine Tab 50 Mg Tab) 100 mg PO TID [facility] Stop: 09/25/20 20:59 Last Admin: 08/28/20 21:03 Dose: 100 mg Documented by: Hydralazine HCl (Hydralazine Hcl 20 Mg/Ml Vial) 10 mg IV Q6H PRN PRN Reason: for SBP above 170 Stop: 09/25/20 19:48 Furosemide 40 mg/ Syringe 4 mls @ 4 mls/min IV BID [facility] Stop: 09/25/20 20:59 Last Admin: 08/28/20 21:06 Dose: 4 mls/min Documented by: Norepinephrine Bitartrate (Levophed/D5w) 8 mg in 508 mls @ 26.079 mls/hr IV .[id number] [facility]; Protocol Stop: 09/28/20 07:59 Insulin Aspart (Insulin Aspart 100 Units/Ml 3 Ml Pen) 0 units SC ACHS [facility] Stop: 09/25/20 20:59 Last Admin: 08/28/20 21:06 Dose: Not Given Documented by: Insulin Human NPH (Insulin Human Nph) 0 units SC QDB [facility]; Protocol Stop: 09/26/20 07:29 Last Admin: 08/27/20 08:24 Dose: 60 units Documented by: Insulin Human NPH (Insulin Human Nph) 10 units SC QDD [facility] Stop: 09/27/20 16:29 Last Admin: 08/28/20 17:14 Dose: 10 units Documented by: Lisinopril (Lisinopril 40 Mg Tab) 40 mg PO DAILY [facility] Stop: 09/26/20 08:59 Last Admin: 08/28/20 08:44 Dose: 40 mg Documented by: Magnesium Hydroxide (Magnesium Hydroxide Susp 30 Ml Udc) 30 ml PO Q12H PRN PRN Reason: Constipation Stop: 09/25/20 19:48 Miscellaneous (Carbohydrates For Hypoglycemia ) 15 - 30 gm PO UD PRN PRN Reason: Hypoglycemia Protocol Stop: 09/25/20 19:48 Last Admin: 08/28/20 01:58 Dose: 30 gm Documented by: Miscellaneous Information (Pharmacy Glycemic Mgmt Consult) 1 ea N/A UD PRN; Protocol PRN Reason: Consult Stop: 09/25/20 20:02 Ondansetron HCl (Ondansetron Inj 2 Mg/Ml 2 Ml Vial) 4 mg IV Q6H PRN PRN Reason: Nausea Stop: 09/25/20 19:48 Pantoprazole Sodium (Pantoprazole 40 Mg Tab) 40 mg PO HS CONNIE Stop: 09/25/20 20:59 Last Admin: 08/28/20 21:05 Dose: 40 mg Documented by: Polyethylene Glycol (Polyethylene (Miralax) 17 Gm Pack) 17 gm PO DAILY PRN PRN Reason: Constipation Stop: 09/25/20 19:48 Terazosin HCl (Terazosin Hcl 5 Mg Cap) 5 mg PO DAILY CONNIE Stop: 09/26/20 08:59 Last Admin: 08/28/20 08:45 Dose: 5 mg Documented by: Vitamin D (Cholecalciferol 1,000 Units 25 Mcg Tab) 1,000 units PO DAILY CONNIE Stop: 09/26/20 08:59 Last Admin: 08/28/20 08:44 Dose: 1,000 units Documented by:
[2020-08-29] MEDS: INSULIN ASPART 100 UNITS/ML 3 ML PEN SC SCH ×5 (08:48→20:38)
[2020-08-29] MEDS ORDERED: fentaNYL citrate 100 MCG/2 ML VIAL ONE (08:53)
--- NOTE | 2020-08-29 08:56 | Procedure Note ---
Procedure Note Date of Service August 29, 2020 I responded to a CODE BLUE that was called on the floor this morning. When I arrived nursing staff, Ruiz Wilks PA-C, and Dr. Carrera and Dr. Padilla were also present. Please see the nursing notes for additional information regarding patient's condition when he was first found and a CODE BLUE called. Patient does have a history of COPD and had been on oxygen, when nursing staff found him he had taken his oxygen off. I assisted Mr. Wilks in securing the definitive airway while we ran the code. ACLS protocols followed, please see the code sheet for additional details regarding medication timing, dosing, and frequency. Patient initially pulseless and apneic on my arrival, being bagged by nursing staff. No palpable pulse and on rhythm check appeared asystolic with escape beats. After additional resuscitative efforts at the next pulse check patient was PEA. Resuscitative efforts and ACLS were continued, patient continued be bagged although was noted to have frothy secretions in the ET tube. At the next rhythm check patient did have a pulse, however the rhythm did appear slightly irregular with the appearance of likely a wide-complex although not consistent with ventricular tachycardia. Patient was given bicarb. On discussion with Dr. Buck at bedside, patient does have a history of chronic kidney disease although recent electrolytes have been reassuring, no hyperkalemia, and creatinine was 1.7. I/O was placed additionally in the left proximal tibia. While the bicarb was being given, patient's QRS narrowed and the overall rhythm appeared more organized, although still slightly irregular. A blood pressure was obtained and twelve-lead EKG. Patient found to be hypertensive. A rhythm change was again noted while pt was still attached to the EKG machine so a 2nd ekg was obtained also. Mr. Wilks attempted to perform a bedside ABG initially however this was unsuccessful, he then placed an OG tube and the patient is we made arrangements for transport down to the ICU. Oxygen saturations continued to improve with bagging. Initial blood pressure showed the patient to be markedly hypertensive. Patient transferred to the intensive care unit with a stable heart rate, being bagged by RT without difficulty, oxygen saturations in the 90s, and hypertensive. Coding
[2020-08-29] MEDS ORDERED: MIDAZOLAM HCL 5 MG/ML 1 ML VIAL ONE (08:57)
--- NOTE | 2020-08-29 09:12 | Hospitalist Progress Note ---
Date of Service August 29, 2020 Assessment & Plan Admission and Anticipated Discharge Date Admission Date: August 26, 2020 Subjective [facility] car was called at around 6:25am. Last night patient was agitated. He slid from the chair. Other night also he fell from chair hit head on the table .So advised for sleep on the bed. A small dose of ativan was given. Patient seems taking off his oxygen. At 6.25am he was found unresponsive with leads taken off and no pulse. [facility] car was called. After 4 doses of ativan and two bicarb doses and cpr and s/p intubation patient pulse came back. Blood pressure ok. Was transferred to ICU. notified. Ct head ordered no bleed noted. Results & Data Results & Data ([facility]) Vital Signs (Past 12 Hours) Vital Signs Temp Pulse Pulse Resp BP BP Pulse Ox 08/29/20 07:50 25 H 08/29/20 07:05 66 23 98 08/29/20 04:29 36.4 C L 82 20 173/63 H 91 08/29/20 01:17 59 L 08/28/20 22:32 36.4 C L 58 L 22 136/68 98
--- NOTE | 2020-08-29 09:12 | Procedure Note ---
Procedure Note Date of Service August 29, 2020 PREOPERATIVE DIAGNOSIS: Left lung collapse POSTOPERATIVE DIAGNOSIS: Mucous plugging of the left main bronchus PROCEDURE PERFORMED: Flexible fiberoptic bronchoscopy with BAL COMPLICATIONS: None. INDICATION: As above PROCEDURE: Emergent consent was applied. Patient was already intubated. He was 100% FiO2 and PEEP was at 6. The patient had appropriate oxygen, blood pressure, heart rate, and respiratory rate monitoring applied and monitored continuously throughout the procedure. Subsequent to this, the patient was premedicated with 50 MCG of fentanyl. Bronchoscope was advanced to the ETT. Additional topical anesthesia with 1% lidocaine was applied to the trachea and jay. The trachea appeared normal. The bronchoscope was then advanced through the jay, which was sharp. The scope was then advanced into the right main stem and each segment, subsegement in the right upper lobe, right middle lobe and right lower lobe were visualized. There were no secretions noted.. There were no other findings including evidence of mass, anatomic distortions, or hemorrhage. The bronchoscope was subsequently withdrawn and advanced into the left mainstem. Copious amount of secretion was appreciated right at the beginning of the stem. It was suctioned out. Left upper lobe will also had secretions as well as left lower lobe. All of which were suctioned out. The bronchoscope was then wedged in the left upper lobe and bronchoalveolar lavage samples were obtained. 50 ml of saline was instilled and 20 ml of fluid was aspirated back.The bronchoscope was withdrawn and the area was suctioned clear. The bronchoscope was then withdrawn to the mainstem. The area was suctioned clear. The bronchoscope was then withdrawn. The patient tolerated the procedure well without evidence of desaturation or complications. Bronchoalveolar lavage samples were sent for cell count, Gram stain and bacterial culture, AFB culture and smear, fungal culture and smear and cytology. Recommendations: Follow-up chest x-ray. Coding CPT Codes Pulmonary/Thoracic - Pulmonary and Thoracic: 12052 Bronchoscopy, clear airways ([id number]) Pulmonary/Thoracic - Pulmonary and Thoracic: 40225 Dx bronchoscopy/BAL ([id number]) [facility] [place] Procedure Codes (Charges) Pulmonary/Thoracic Procedure 1: Pulmonary and Thoracic: 80834 Bronchoscopy, clear airways Procedure 2: Pulmonary and Thoracic: 68455 Dx bronchoscopy/BAL
--- NOTE | 2020-08-29 09:21 | Critical Care Consultation ---
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 He requires ICU-level care at this point s/p ROSC for hemodynamic and continuous cardiac monitoring. Neuro - Unresponsive Sedation: None. Analgesia: fentanyl 50mcg q2h prn for discomfort on vent Status post cardiac arrest -- c/f anoxic encephalopathy Cardiac arrest lasted approximately 15 to 20 minutes with patient subsequently remaining in an unarousable state, not on sedation. With intense tactile stimulation, he does occasionally and involuntarily demonstrate decerebrate posturing, and occasionally does so without stimulation as well. He does demonstrate a gag reflex, but I am unable to achieve corneal reflex or appreciable pupillary reflex. He has increased spasticity in upper and lower extremities. With the signs being present, there is certainly concern for poor neurologic outcome 2/2 anoxic brain injury, especially in adjunct with the amount of time that it took to obtain ROSC. Dr. Man spent significant time discussing this with the family as well as expectations for moving forward As he does occasionally demonstrate some discomfort with endotracheal tube, we will add on as needed fentanyl 50 mcg every 2 hours History of neuropathy noted, as well as history of Tineo's palsy. Notes that patient has chronic right-sided facial droop as well as right upper extremity weakness Cardiac - Cardiac Arrest Responded to CODE BLUE at approximately 6:30 AM this morning, arrived to unresponsive patient and several providers performing CPR. At the time, appeared that patient was in ventricular fibrillation. He had respiratory acidosis. He received approximately 2 rounds of epinephrine, 2 A of bicarb. Shortly after, he did demonstrate monomorphic ventricular tachycardia. He was also hypotensive. He was briefly initiated on vasopressors, which were able to be subsequently discontinued shortly thereafter. Please see code note entered by night team for further details. -Suspect this was likely secondary to deteriorating respiratory function that led to respiratory arrest after patient was agitated, refused to wear his oxygen. At this time, patient is hypertensive in normal sinus rhythm, but remains unresponsive. As there was evidence of ventricular tachycardia, we will proceed with a one- time bolus of amiodarone followed by 6 hours of 1 mg/h drip, and thereafter 18 hours of 0.5 mg/h drip. See neuro above Maintain core body temperature at 36.5 C or lower with cooling blanket in recognition of risk for post-cardiac arrest syndrome Hypertension As above, patient did briefly require Levophed for cardiovascular support As he is now persistently hypertensive, we will slowly readd his home medications through the OG tube (Clonidine, hydralazine, Coreg, lisinopril, torsemide) to stabilize BPs We will also add analgesics, as above, which may contribute to blood pressure control in the setting of mechanical ventilation Last echocardiogram on August 27 demonstrating normal left ventricular size and function, with ejection fraction 65 to 70%. Mild left ventricular hypertrophy. Grade 2 diastolic dysfunction. Mild aortic sclerosis without stenosis. Normal right ventricular size. Respiratory - Ventilator dependent respiratory failure -Patient has significant history of tobacco abuse, likely undiagnosed COPD without PFTs for review, pulmonary hypertension, COPD, HFpEF, also MGUS -Prior to being transferred to the ICU, patient's reason for presentation, shortness of breath, thought to be multifactorial nature, including all of these issues. -Given his unresponsiveness, need for artificial ventilation, and fear protecting airway, patient is for now requiring mechanical ventilation -Chest CT this morning demonstrating consolidation in the left upper lobe, as well as dense airspace opacity at the lung bases. -Bronchoscopy performed. Significant for mucous plugging, with interval improvement on repeat chest x-ray -We will consider reperforming bronchoscopy tomorrow pending We will hold Lasix for now Continue monitoring GRISELDA's GI - -N.p.o. for now. No other acute concerns RENAL/LYTES - -Patient has notable history of CKD stage III, with baseline creatinine between 1.7-1.8 -MAGO appreciable on labs post arrest this morning, with BUN 61 and creatinine 2.44 -Maintain potassium over 4, magnesium over 2, phosphate over 3 No significant electrolyte abnormalities during this time JANET - Britton in place No other acute concerns at this time, continue to monitor GRISELDA's ENDO - -Patient has history of type 2 diabetes. We will continue utilizing Lantus for now and can consider additional coverage if needed. HEME - -Patient with notable history of MGUS, did receive Retacrit injection on 08/19 and 08/26. -Hemoglobin 7.6 as outpatient, baseline appears to be around 8 -Hemoglobin on labs this morning at 7.8; will continue to monitor. We will also type and screen if transfusion becomes necessary ID - No major infection concerns at this point We will monitor temperatures INTEGUMENTARY - Noted that patient has history of bilateral lower extremity venous stasis ulcers in context of peripheral arterial disease Wound care previously consulted LINES/IV ACCESS - IO in R tibia. PIVs in tact. Britton. ETT. OGT. DVT PROPHYLAXIS - Hold heparin for now. Will order SCDs. Thank you for allowing us to be part of this patient's care. Please refer to Dr. Man's documentation for any further recommendations. (2) CHF (congestive heart failure): (3) MGUS (monoclonal gammopathy of unknown significance): (4) Anemia: (5) Shortness of breath: (6) Chronic venous insufficiency: (7) Lower extremity edema: (8) Venous stasis ulcers of both lower extremities: (9) Obstructive sleep apnea of adult: (10) HTN (hypertension): (11) Diabetes: (12) Venous insufficiency: (13) Tachy-jazlyn syndrome: (14) RBBB: (15) Neuropathy: (16) Gastroesophageal reflux disease: (17) Dyslipidemia: (18) CKD (chronic kidney disease): (19) BPH (benign prostatic hyperplasia): (20) Allergic rhinitis: (21) Obesity, Class III, BMI 40-49.9 (morbid obesity): Supervising Physician Co-Signing Physician Notes Dr. Padilla was the resident-physician during care of patient. I separately evaluated patient for subramanian portions of the history and the exam. I was present during the critical portion of medical decision making, and I discussed the case with the resident. I generally agree with the findings and plan except for any additions/exceptions noted. 70-year-old male past medical history of CKD, severe FLETCHER noncompliant with CPAP, COPD, HFpEF, CKD stage IV, hypertension, diabetes was admitted to the hospital because of diastolic CHF and volume overload and being diuresed on the floor. Earlier in the morning 08/29/2020 patient was found unresponsive, CODE BLUE was called and patient had CPR which lasted for approximately 20 minutes. Patient h ad wide complex tachycardia after getting ROSC. Patient in the ICU for further management Constitutional: Intubated HEENT: EOMI, PERRLA, positive ETT Respiratory system: Decreased air entry bilaterally, more decreased on the left side, positive rhonchi, no wheeze, crackles bilateral lower lobes more on the left side CVS: S1-S2 positive, no murmurs or gallops, distant heart sounds Abdomen: Soft, nontender, nondistended, positive bowel sounds x4, obese Extremities: +2 pulses bilaterally radialis/ dorsalis pedis, no cyanosis, +1 pitting edema bilateral lower extremity Neuro: Positive corneal, patient breathing over the vent, not following commands, decerebrate posturing Psych: Unable to assess G/U: Positive Britton --Prophylaxis VTE: Heparin GI: Lansoprazole Lines: Left radial, peripheral Diet: N.p.o. Plan: Given the wide-complex tachycardia post arrest I will start the patient on amiodarone drip. Patient has collapse of the left lung likely from mucous plugging possibly from aspiration, I will do a bronchoscopy to clear the mucous plugging MAGO likely from a cardiac event. Monitor BUNs/creatinine Avoid nephrotoxic medications We will keep the patient's temperature 36.5 and do the hypothermia protocol for at least 24-48 hours Try to keep the patient off sedation with the patient has chills or is fighting the vent will give fentanyl pushes as needed Overall because of decerebrate posturing prognosis is guarded. Patient's and daughter were at bedside every given update regarding patient's condition and the prognosis looking forward. Hold Lasix for the time being. DC Coreg given the patient is now on the bradycardic side likely from amiodarone. I have personally spent additional 58 minutes of critical care time in the direct management of this patient. This is a life/limb threatening event. This includes time spent evaluating patient, direct bedside care, chart review, placing orders, interpretation of diagnostic studies, discussion with consultants, patient, and/or family members regarding treatment decisions, as well as other required patient management activities. This time is exclusive of all separately billable procedures, and teaching time and separate from and in addition to any other critical care service time. History of Present Illness Attending Physician: Neha Glover MD History of Present Illness Edmar is a 70-year-old male with a notable past medical history of COPD, severe FLETCHER, likely OHS, HFpEF, CKD IV, HTN, HLD, T2DM, h/o [place] palsy (resulting in R facial droop; also has ?chronic RUE weakness), obesity, chronic venous insufficiency, and MGUS who presented to [facility] for evaluation of shortness of breath, thought to be due to COPD + pulmonary HTN + severe FLETCHER + possible component of acute HFpEF, and was subsequently found to be in cardiac arrest at around 0630 on 08/29, requiring 15-20 minutes of CPR and pharmacologic administration prior to achieving ROSC. He now remains in the ICU for continuous hemodynamic monitoring. Based on provider conversations as well as previous provider notes, patient presented to the hospital for evaluation of ongoing shortness of breath. He noted that this had been going on for several months, and had become progressively worse, especially with ambulation. He also reports over this time noticing progressively worsening swelling in his abdomen and his feet. Reportedly, he did not have chest pain throughout this time. He was at a routine follow-up at the wound clinic for his venous stasis ulcers, and was found to have hypoxia to 88% and was sent to the ER for further evaluation and management. Throughout his course here, he has been followed by primary hospital team and cardiology. Current thought of his shortness of breath, in conjunction with his anasarca and dypnea, Is that it is likely related to multiple etiologies, including acute decompensated heart failure in the setting of pulmonary hypertension, COPD, severe obstructive sleep apnea, and possibly obesity hypoventilation syndrome. He has been treated with diuresis as well as BiPAP, although patient had refused BiPAP on multiple occasions. Last night, apparently the patient became agitated and was refusing to wear his oxygen. He did receive Ativan on chart review during yesterday evening hours. Then, around 620 this morning, patient was found to be unresponsive and cyanotic. There was not a pulse. It is unknown how long the patient had been in arrest prior to his discovery. A CODE BLUE was subsequently called, CPR was initiated with ad ministration of both epinephrine and bicarb, with subsequent ROSC approximately 20 minutes after initiation. Initially required Levophed for hemodynamic support, as well is endotracheal intubation. Please see code note for full details In the ICU, he has been hypertensive in the Levophed that he initially required for postarrest hypotension had been discontinued. CT of the head, as well as abdomen and pelvis were negative. Chest x-ray, as well as CT of the chest, demonstrated left hemithorax opacification and mediastinal shift. He did undergo bronchoscopy, which was revealing for mucous plugging; repeat chest x- ray did demonstrate improvement. He remains unresponsive on the ventilator for support. Family is now at the bedside. Allergies Allergy/AdvReac Type Severity Reaction Status Date / Time No Known Allergies Allergy Verified 08/26/20 14:54 Home Medications Medication Instructions Recorded Confirmed Type albuterol sulfate [ProAir HFA] 1 puff INHALATION QID PRN 08/26/20 08/26/20 History aspirin [Aspir-81] 81 mg PO DAILY 08/26/20 08/26/20 History atorvastatin 40 mg PO HS 08/26/20 08/26/20 History carvedilol 18.75 mg PO BID 08/26/20 08/26/20 History cetirizine 5 mg PO DAILY 08/26/20 08/26/20 History cholecalciferol (vitamin D3) 25 mcg PO DAILY 08/26/20 08/26/20 History clonidine HCl 0.3 mg PO BID 08/26/20 08/26/20 History cyanocobalamin (vitamin B-12) 1,000 mcg PO DAILY 08/26/20 08/26/20 History finasteride 5 mg PO DAILY 08/26/20 08/26/20 History hydralazine 100 mg PO TID 08/26/20 08/26/20 History insulin NPH and regular human 0 unit SUBCUT UD 08/26/20 08/26/20 History insulin regular human 1 sliding scale dose SUBCUT 08/26/20 08/26/20 History USEASDIRECTD iron,carbonyl-vitamin C [Vitron-C] 1 tab PO DAILY 08/26/20 08/26/20 History lisinopril 40 mg PO DAILY 08/26/20 08/26/20 History magnesium oxide 140 mg PO DAILY 08/26/20 08/26/20 History omeprazole 20 mg PO HS 08/26/20 08/26/20 History terazosin 5 mg PO DAILY 08/26/20 08/26/20 History torsemide 100 mg PO BID 08/26/20 08/26/20 History Patient History Medical History Acute urinary retention BPH (benign prostatic hyperplasia) CKD (chronic kidney disease) Diabetes Dyslipidemia Fall Gastroesophageal reflux disease Hematuria, gross HTN (hypertension) Insomnia Neuropathy Obesity, Class III, BMI 40-49.9 (morbid obesity) Obstructive sleep apnea of adult RBBB Tachy-jazlyn syndrome Venous insufficiency Surgical History H/O circumcision H/O esophagogastroduodenoscopy H/O inguinal hernia repair History of tonsillectomy and adenoidectomy History of uvulopalatopharyngoplasty Hx of colonoscopy S/P cataract surgery S/P transurethral resection of prostate Family History Sister Crohn's disease Diabetes Mother Diabetes Brother Kidney disease Heart disease Other FH: cataracts Social History Smoking Status: Former smoker Tobacco Type: Cigarettes packs per day: 1; Smoking End Date: 1987; Hx Alcohol Use: No Hx Substance Use: No Preferred Language: Spanish Communication Ability: Effective 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 He occasionally demonstrates posturing of his upper extremities, and does bite the endotracheal tube HEENT: NCAT. Eyes - Sclera are white, anicteric, and without injection. Minimal pupillary reflex. Corneal reflex absent on my exam. Mouth - unobservable due to tubes Cardiac: Normal rate and regular rhythm; S1 and S2 present with no appreciable murmurs, rubs, or gallops. Pulmonary: Ventilator-dependent. Right lung does demonstrate some basilar crackles; auscultation of the left lung does demonstrate diffuse crackles and diminished lung sounds Abdominal: Normoactive bowel sounds. Abdomen was soft and mildly distendend. Extremities: Upper and lower extremities are warm and well perfused. Capillary refill in UEs approx. 3 seconds. 2+ pitting edema in LE's bilaterally. Neuro: Patient is obtunded. Minimal pupillary response, and absent corneal reflex on my exam. During suctioning of the endotracheal tube, he does demonstrate some gag reflex. He has increased muscle tone in the upper and lower extremities, suggestive of spasticity. He also does occasionally demonstrate decerebrate posturing spontaneously, as well as with stimulation. Results & Data Results & Data ([facility]) Vital Signs (Past 12 Hours) Vital Signs Temp Pulse Pulse Resp BP BP Pulse Ox 08/29/20 07:50 25 H 08/29/20 07:05 66 23 98 08/29/20 04:29 36.4 C L 82 20 173/63 H 91 08/29/20 01:17 59 L 08/28/20 22:32 36.4 C L 58 L 22 136/68 98 08/29/20 11:00 08/29/20 07:41 Resident Activity Tracking Resident Involvement: Resident Care Provided Care Provided: Adult Hospital Medicine (1) CHF (congestive heart failure) Heart failure chronicity: acute on chronic Heart failure type: unspecified Qualified Code(s): I50.9 - Heart failure, unspecified (2) Anemia Anemia type: unspecified type Qualified Code(s): D64.9 - Anemia, unspecified
[2020-08-29] MEDS ORDERED: 0.2 MICRON FILTER SET 1 EA IV ONE (09:28)
[2020-08-29] MEDS ORDERED: AMIODARONE / D5W 150 MG/100 ML BAG IV STA (09:35)
[2020-08-29] MEDS ORDERED: AMIODARONE / D5W 360 MG/200 ML BAG IV ONE (09:45)
[2020-08-29] MEDS: FERROUS SULFATE 325 MG TAB PO SCH (09:58)
[2020-08-29] MEDS: FINASTERIDE 5 MG TAB PO SCH (09:59)
[2020-08-29] MEDS: ASPIRIN 81 MG ECTAB PO SCH (09:59)
--- NOTE | 2020-08-29 09:59 | Hospitalist Progress Note ---
Date of Service August 29, 2020 Assessment & Plan (1) Cardiac arrest: Patient had CODE BLUE/cardiac arrest at early hours today. Possible hypoxia/CO2 retention, patient has been refusing BiPAP, Per record patient was noted to be agitated confused, later became apneic and went to a [facility]LE Was regained after more than 20 minutes of CPR Currently ICU intubated not responding Hypoxemic respiratory failure acute on chronic: With hypercarbia, respiratory acidosis. Combination of CO2 retention history of severe obstructive need sleep apnea, worsening of congestive heart failure due to hypoxemia. Aspiration before or during CODE BLUE. Status post bronc by blasting entry specialist today Overall prognosis remains guarded, family updated at bedside (2) Diabetes: Ischemic management per ICU protocol (3) CKD (chronic kidney disease): -Acute renal failure on CKD stage IV. Creatinine 2.2 due to cardiac arrest, hypoxemic respiratory failure. LACTIC ACIDOSIS : due to cardiac arrest , respiratory failure /hypoxia cont vent management as per ICU team repeat Lactic level ordered in 4 hrs (4) Obesity, Class III, BMI 40-49.9 (morbid obesity): -BMI of 46.8,with severe FLETCHER has been non compliant with Bipap (5) Venous stasis ulcers of both lower extremities: present on admission wound care consulted (6) Chronic venous insufficiency: s/p sclerotherapy by Dr. Villalba's (7) MGUS (monoclonal gammopathy of unknown significance): HB 7.5 -chronic - Received Retacrit injection on 08/19/2020 and 08/26/2020, pt hgb was 7.6 as an outpatient, baseline is 8.0, . code status : full code over all prognosis remains guarded family updated at bedside Admission and Anticipated Discharge Date Admission Date: August 26, 2020 Subjective Seen in ICU, status post CODE BLUE/cardiac arrest, acute on chronic hypoxemic respiratory failure. Patient is currently intubated, not on any sedation, not responding Had bronc done earlier today by blasting entry specialist. I personally spoke with patient's family, , daughter and son, Given them update, With special permission from ICU team, family is allowed to come to ICU to see patient at bedside. Patient remains unresponsive, per record. Approximately 20 minutes of CPR before pulse was regained. High risk for anoxic encephalopathy Overall prognosis remains poor, Family will be updated by blasting entry specialist at bedside Review of Systems Review of Systems: Unobtainable due to endotracheal tube and Unobtainable due to reduced consciousness Unresponsive Physical Exam Constitutional: + morbidly obese (Unresponsive without any sedation on mechanical ventilation) Eyes: pupils minimally reactive ENMT: ET tube present Respiratory: Auscultation: + crackles and + rales Diminished with rales in base Cardiovascular: Rate/Rhythm: + irregularly irregular Gastrointestinal (Abdomen): Percussion/Palpation: abdomen soft Distended Neurologic: + obtunded (Not responding to painful stimuli, not on any sedation) Results & Data Results & Data ([facility]) Vital Signs (Past 12 Hours) Vital Signs Temp Pulse Pulse Resp BP BP Pulse Ox 08/29/20 07:50 25 H 08/29/20 07:05 66 23 98 08/29/20 04:29 36.4 C L 82 20 173/63 H 91 08/29/20 01:17 59 L 08/28/20 22:32 36.4 C L 58 L 22 136/68 98
[2020-08-29] MEDS: INSULIN HUMAN NPH SC SCH (10:01)
--- NOTE | 2020-08-29 10:04 | XRay Report ---
XR chest 1V portable HISTORY: s/p bronch after cpr COMPARISON: Chest 08/29/2020. FINDINGS: Improved aeration within the left hemithorax and improvement in the mediastinal shift. The heart remains enlarged. There is perihilar interstitial/vascular thickening and bibasilar densities. This may represent pulmonary edema with superimposed pneumonia. Endotracheal tube terminates 4.3 cm o f the jay. Nasogastric tube terminates in the stomach. IMPRESSION: 1. Improved aeration within the left hemithorax and improvement in the mediastinal shift status post bronchoscopy. 2. No pneumothorax. 3. Satisfactory support line placement. 4. Pulmonary edema and bibasilar densities/pneumonia are noted. ACT 112: Negative or not required by law. Electronically signed by: Dustin Stearns M.D. 08/29/2020 10:03 AM
[2020-08-29] MEDS: hydrALAZINE TAB 50 MG TAB PO SCH ×3 (10:20→20:40)
[2020-08-29] MEDS: FUROSEMIDE 40 MG in SYRINGE 0 ML IV SCH (10:22)
[2020-08-29] MEDS: carvediloL 25 MG TAB PO SCH (10:22)
[2020-08-29] MEDS: CETIRIZINE HCL 10 MG TABLET PO SCH (10:23)
[2020-08-29] MEDS: ASCORBIC ACID 500 MG TAB PO SCH (10:23)
[2020-08-29] MEDS: CHOLECALCIFEROL 1,000 UNITS 25 MCG TAB PO SCH (10:25)
[2020-08-29] MEDS: cloNIDine HCL 0.3 MG TAB PO SCH ×2 (10:25→20:39)
[2020-08-29] MEDS: CYANOCOBALAMIN 500 MCG TABLET (VITAMIN B-12) PO SCH (10:25)
[2020-08-29] MEDS: TERAZOSIN HCL 5 MG CAP PO SCH (10:26)
[2020-08-29] MEDS ORDERED: INSULIN GLARGINE SOLOSTAR 100 UNITS/ML 3 ML PEN SC STA (10:35)
[2020-08-29] MEDS: fentaNYL citrate 100 MCG/2 ML VIAL IV PRN ×4 (10:43→23:53)
[2020-08-29] MEDS: LANSOPRAZOLE 30 MG SOLTAB NG SCH (11:08)
[2020-08-29] MEDS: ASPIRIN 81 MG CHEW NG SCH (11:08)
[2020-08-29 11:14] LABS: Eosinophils # (auto) 0.02 K/uL (0-0.5); Eosinophils % (auto) 0.3 %; Hematocrit (blood only) 25.6 % (42-52); Hemoglobin 7.8 g/dL (14.0-18.0); Immature Granulocytes # (auto) 0.02 K/uL (0.00-0.02); Immature Granulocytes % (auto) 0.3 %; Lymphocytes # (auto) 0.59 K/uL (1.2-3.4); Lymphocytes % (auto) 8.7 %; Mean Corpuscular Hemoglobin 31.7 pg (25-34); Mean Corpuscular Hgb Conc 30.5 g/dL (32-36); Mean Corpuscular Volume 104.1 fL (80-100); Mean Platelet Volume 8.6 fL (7.4-10.4); Monocytes % (auto) 8.9 %; Neutrophils # (auto) 5.54 K/uL (1.4-6.5); Neutrophils % (auto) 81.8 %; Platelet Count 137 K/uL (130-400); Red Blood Count 2.46 M/uL (4.7-6.1); White Blood Count 6.77 K/uL (4.8-10.8)
[2020-08-29] MEDS: lisinopril 40 MG TAB PO SCH (11:27)
[2020-08-29 11:35] LABS: Basophilic Stippling 1+
--- NOTE | 2020-08-29 12:51 | Pharmacy Report ---
Pharmacy Glycemic Short Note 2 - Date of Service August 29, 2020 - Glycemic Short BSG Results (Last 24 hours): 08/28/20 08/28/20 08/29/20 16:36 20:42 00:14 Glucose POC Glucose 129 H 106 H 87 08/29/20 08/29/20 08/29/20 06:52 07:41 08:46 Glucose 266 H 229 H POC Glucose 231 H 08/29/20 11:30 Glucose POC Glucose 219 H OUTPATIENT ANTIDIABETIC REGIMEN: * NPH 80 units SQ QAM, 20 units QPM * Regular insulin 54 units SQ QAM, 18 units SQ QPM * CF 18mg/dl/unit ASSESSMENT: 08/29: * Patient transferred to the ICU post cardiac arrest and was intubated. BSGs elevated this morning in the 200s, likely as due to stress response. Given NPO status, will transition from NPH to lantus and q4 novolog. * Patient received a total of 103 units of insulin today, 65 of which were basal. 08/28 * Patient with hypoglycemia around 0200 today, BSG 56mg/dl * decrease PM NPH and reduce dose this morning x 1 day * Loosen CF/CR slightly to prevent further hypoglycemia 08/27 * 70 year old male admitted with SOB/volume overload, on basal bolus insulin as outpatient * Will continue NPH for basal and use Novolog for bolus insulin while inpatient * Patient had 10 units of NPH last night, fasting blood sugar 161mg/dl this morning * Prior to lunch blood sugar 205mg/dl, will tighten CF/CR and increase NPH doses * A1c 5.5%, likely experiencing hypoglycemia at home PLAN FOR INPATIENT GLYCEMIC CONTROL: * Basal insulin * Lantus 35 units SQ x 1 ~1130am * Lantus scale SQ this evening- 0,10 or 15 units based on BSG- See MAR for details * Bolus insulin * NovoLog per scale ACHS or Q4hrs while NPO * Goal Range: Low 110 mg/dL - High 140 mg/dL * Correction Factor: 15 mg/dL/unit * Nutritional / Prandial insulin per carb ratio of 1 unit per 5 grams CHO consumed PLAN FOR DISCHARGE: * A1c 5.5%, may be experiencing hypoglycemia at home, recommendations to be determined
--- NOTE | 2020-08-29 14:17 | Billing Data ---
Date of Service August 29, 2020 Coding Level of Care Code Critical Care ea addt'l 30 min Time Spent (min) 58
[2020-08-29] MEDS: AMIODARONE / D5W 360 MG/200 ML BAG IV SCH (16:14)
[2020-08-29 17:03] LABS: Eosinophil Body Fluid Man 0 %; Fluid Mono/Macrophage 3 %; Lymphocyte Body Fluid Man 26 %; Neutrophil Body Fluid Man 71 %
[2020-08-29] MEDS: ATORVASTATIN 40 MG TAB PO SCH (20:39)
[2020-08-29] MEDS: ACETAMINOPHEN 325 MG TAB PO PRN (20:53)
[2020-08-29] MEDS ORDERED: INSULIN GLARGINE SOLOSTAR 100 UNITS/ML 3 ML PEN SC SCH (21:00)
[2020-08-29] MEDS ORDERED: MIDAZOLAM HCL 1 MG/ML 2ML VIAL IV PRN (21:12)
[2020-08-30] MEDS: INSULIN ASPART 100 UNITS/ML 3 ML PEN SC SCH ×7 (00:07→23:23)
[2020-08-30] MEDS: MIDAZOLAM HCL 1 MG/ML 2ML VIAL IV PRN ×3 (00:15→03:45)
[2020-08-30] MEDS: fentaNYL citrate 100 MCG/2 ML VIAL IV PRN ×4 (03:01→17:06)
[2020-08-30] MEDS: AMIODARONE / D5W 360 MG/200 ML BAG IV SCH (03:45)
[2020-08-30 04:55] LABS: BUN Creatinine Ratio 32.7 (10-20); Bilirubin Direct 0.2 mg/dl (0-0.2); Calcium 8.3 mg/dl (8.5-10.1); Est GFR (African American) 36.1 ml/min; Est GFR (Non-African American) 31.1 ml/min; Magnesium 2.5 mg/dl (1.8-2.4)
[2020-08-30 05:10] LABS: Bilirubin,Total 0.5 mg/dl (0.2-1); Phosphorus 3.3 mg/dl (2.5-4.9); Total Protein 7.3 gm/dl (6.4-8.2); Troponin I 0.596 ng/ml (0-0.045)
[2020-08-30] MEDS ORDERED: PROPOFOL BOLUS FROM BAG IV PRN (05:24)
[2020-08-30] MEDS ORDERED: STAT IV Infusion **Titration per Protocol STA (05:24)
[2020-08-30 05:35] LABS: iSTAT Art Bld Gas pCO2 Correct 46 mmHg (35-46); iSTAT Art Bld Gas pH Corrected 7.435 (7.35-7.45); iSTAT Arterial Blood Gas HCO3 31 meg/L (19-24); iSTAT Arterial Blood Gas pCO2 46 mmHg (35-46); iSTAT Arterial Blood Gas pH 7.44 (7.35-7.45); iSTAT Arterial Blood Gas pO2 87 mmHg (80-95); iSTAT Arterial Blood Gas pO2 C 87; iSTAT Carbon Dioxide 33 mmol/L (24-31); iSTAT FiO2 50 %; iSTAT Hematocrit 25 % (42-52); iSTAT Hemoglobin 8.5 g/dl (14.0-18.0); iSTAT Site Art Line; iSTAT Sodium 142 mmol/L (135-144)
[2020-08-30] MEDS: HEPARIN SOD 5,000 UNIT/0.5 ML VIAL SQ SCH ×3 (05:35→20:21)
[2020-08-30] MEDS: propofoL 1,000 MG/100 ML VIAL IV SCH ×5 (05:48→23:23)
--- NOTE | 2020-08-30 06:24 | Electrocardiogram Report ---
Test Reason : Blood Pressure : / mmHG Vent. Rate : 082 BPM Atrial Rate : 082 BPM P-R Int : 182 ms QRS Dur : 166 ms QT Int : 422 ms P-R-T Axes : 058 022 013 degrees QTc Int : 493 ms Poor data quality, interpretation may be adversely affected Normal sinus rhythm Right bundle branch block Possible Inferior infarct , age undetermined Abnormal ECG When compared with ECG of 28-AUG-2020 07:07, No significant change Confirmed by Silver Brumfield ([id number]) on 08/30/2020 6:23:52 AM Referred By: REFERRED SELF Confirmed By:Silver Brumfield
--- NOTE | 2020-08-30 06:37 | Electrocardiogram Report ---
Test Reason : Blood Pressure : / mmHG Vent. Rate : 077 BPM Atrial Rate : 075 BPM P-R Int : 000 ms QRS Dur : 190 ms QT Int : 478 ms P-R-T Axes : 000 114 -64 degrees QTc Int : 540 ms Atrial fibrillation with frequent aberrantly conducted complexes Right bundle branch block Possible Inferior infarct Abnormal ECG When compared with ECG of 29-AUG-2020 05:40, Wide QRS complexes, possibly aberrantly conducted, are now present Confirmed by Silver Brumfield ([id number]) on 08/30/2020 6:36:57 AM Referred By: REFERRED SELF Confirmed By:Silver Brumfield
--- NOTE | 2020-08-30 08:19 | XRay Report ---
XR chest 1V portable HISTORY: 70 years-old Male f/u acute respiratory failure COMPARISON: 08/29/2020 TECHNIQUE: AP view the chest FINDINGS: Endotracheal tube terminates 4.6 cm superior to the jay. Enteric tube courses below the diaphragm terminating into the stomach. Cardiomegaly. Pulmonary vascular congestion with persistent interstitia l opacities, slightly improved. Unchanged right hemidiaphragmatic elevation. Degenerative changes of the shoulders and spine. IMPRESSION: 1. Cardiomegaly with slightly improved interstitial opacities. 2. Lines and tubes as above. ACT 112: Negative or not required by law. The above report was generated using voice recognition software. It may contain grammatical, syntax o r spelling errors. Electronically signed by: Chase Galaviz M.D. 08/30/2020 8:17 AM
[2020-08-30] MEDS: cloNIDine HCL 0.3 MG TAB PO SCH ×2 (08:30→20:21)
[2020-08-30] MEDS ORDERED: INSULIN GLARGINE SOLOSTAR 100 UNITS/ML 3 ML PEN SC ONE (08:30)
[2020-08-30] MEDS: ASCORBIC ACID 500 MG TAB PO SCH (08:31)
[2020-08-30] MEDS: hydrALAZINE TAB 50 MG TAB PO SCH ×3 (08:31→20:21)
[2020-08-30] MEDS: lisinopril 40 MG TAB PO SCH (08:32)
[2020-08-30] MEDS: CHOLECALCIFEROL 1,000 UNITS 25 MCG TAB PO SCH (08:33)
[2020-08-30] MEDS: TERAZOSIN HCL 5 MG CAP PO SCH (08:33)
[2020-08-30] MEDS: ASPIRIN 81 MG CHEW NG SCH (08:34)
[2020-08-30] MEDS: FINASTERIDE 5 MG TAB PO SCH (08:34)
[2020-08-30] MEDS: LANSOPRAZOLE 30 MG SOLTAB NG SCH (08:34)
[2020-08-30] MEDS: CETIRIZINE HCL 10 MG TABLET PO SCH (08:35)
[2020-08-30] MEDS: CYANOCOBALAMIN 500 MCG TABLET (VITAMIN B-12) PO SCH (08:35)
--- NOTE | 2020-08-30 08:36 | Critical Care Progress Note ---
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 He requires ICU-level care at this point s/p ROSC for hemodynamic and continuous cardiac monitoring. Neuro - Unresponsive Sedation: propofol Analgesia: fentanyl 50mcg q2h prn for discomfort on vent Status post cardiac arrest -- c/f anoxic encephalopathy * s/p CPR 15-20 min on 08/29 beginning at 0630 AM -- unclear exactly how long patient was hypoperfusing prior to CPR initiation * Today: Some, but overall minimal improvement -- +pupillary, +corneal, +oculocephalic. Spasticity, occasional decerebrate posturing continues. Babinski upgoing. * Now 24+ hours post arrest. Overall prognosis still seems guarded -- consult neurology for aid in prognostic planning. * Continue propofol, fentanyl boluses for discomfort * Will continue TTM with blanket (goal 36.5C) until this evening and reassess, potentially discontinue at that time. History of neuropathy noted, as well as history of Tineo's palsy. Notes that patient has chronic right-sided facial droop as well as right upper extremity weakness Cardiac - Cardiac Arrest * No longer requiring pressure support - BPs, HRs stable at this time and ovn * Suspect this occurred sec to respiratory demise -- see below * Patient had postarrest WCT -- ongoing amio drip for a total of 24hr. End at ~1000hr this AM. No further dysrhythmias. * Maintain core body temperature at 36.5 C or lower with cooling blanket in recognition of risk for post-cardiac arrest syndrome Hypertension * No more need for pressure support, as above. * Continue to re-add home antihypertensives: clonidine, hydralazine, lisinopril, torsemide * Given HRs in 60s, hold Coreg Last echocardiogram on August 27 demonstrating normal left ventricular size and function, with ejection fraction 65 to 70%. Mild left ventricular hypertrophy. Grade 2 diastolic dysfunction. Mild aortic sclerosis without stenosis. Normal right ventricular size. Respiratory - Ventilator dependent respiratory failure s/p cardiac arrest * Noted that patient has significant history of tobacco abuse, likely undiagnosed COPD without PFTs for review, pulmonary hypertension, COPD, HFpEF, also MGUS * Prior to being transferred to the ICU, patient's reason for presentation, shortness of breath, thought to be multifactorial nature, including all of these issues. * Breathing over vent right now. Gases much improved this morning - no acidosis, pCO2 normal. Saturating well. - Will go down on RR, PEEP. May be able to go off vent soon. * CXR this AM demonstrating L-sided improvement following bronchoscopy yesterday. * Continue to hold Lasix * Monitor I&Os GI - * Will begin tube feeds via OG today. RENAL/LYTES - * Patient has notable history of CKD stage III, with baseline creatinine between 1.7-1.8 * MAGO - improving, likely 2/2 arrest and hypoperfusion. Cr ~2.1 this AM (2.44 yesterday). BUN 68. * Maintain potassium over 4, magnesium over 2, phosphate over 3 - Britton in place ENDO - -Patient has history of type 2 diabetes. We will continue utilizing Lantus for now and can consider additional coverage if needed. HEME - * Patient with notable history of MGUS, did receive Retacrit injection on 08/19 and 08/26. * Hemoglobin 7.6 as outpatient, baseline appears to be around 8 * Hgb 8.5 this AM. Stable. Baseline. * T&S: O+ / Ig- ID - * No major infection concerns at this point * Monitor temps INTEGUMENTARY - * Noted that patient has history of bilateral lower extremity venous stasis ulcers in context of peripheral arterial disease * Wound care previously consulted LINES/IV ACCESS - PIVs in tact. Britton. ETT. OGT. -- IO removed yesterday DVT PROPHYLAXIS - * Heparin SQ Thank you for allowing us to be part of this patient's care. Please refer to Dr. Man's documentation for any further recommendations. (2) CHF (congestive heart failure): (3) MGUS (monoclonal gammopathy of unknown significance): (4) Anemia: (5) Shortness of breath: (6) Chronic venous insufficiency: (7) Lower extremity edema: (8) Venous stasis ulcers of both lower extremities: (9) Obstructive sleep apnea of adult: (10) HTN (hypertension): (11) Diabetes: (12) Venous insufficiency: (13) Tachy-jazlyn syndrome: (14) RBBB: (15) Neuropathy: (16) Gastroesophageal reflux disease: (17) Dyslipidemia: (18) CKD (chronic kidney disease): (19) BPH (benign prostatic hyperplasia): (20) Allergic rhinitis: (21) Obesity, Class III, BMI 40-49.9 (morbid obesity): Admission and Anticipated Discharge Date Admission Date: August 26, 2020 Supervising Physician Co-Signing Physician Notes Dr. Padilla was the resident-physician during care of patient. I separately evaluated patient for subramanian portions of the history and the exam. I was present during the critical portion of medical decision making, and I discussed the case with the resident. I generally agree with the findings and plan except for any additions/exceptions noted. 70-year-old male past medical history of CKD, severe FLETCHER noncompliant with CPAP, COPD, HFpEF, CKD stage IV, hypertension, diabetes was admitted to the hospital because of diastolic CHF and volume overload and being diuresed on the floor. Earlier in the morning 08/29/2020 patient was found unresponsive, CODE BLUE was called and patient had CPR which lasted for approximately 20 minutes. Patient had wide complex tachycardia after getting ROSC. Patient seen and examined at bedside. No acute distress. Propofol 20 at the time of examination. Not on any vasopressors. Has been afebrile. Cooling blanket Constitutional: Intubated HEENT: PERRLA, positive ETT Respiratory system: Decreased air entry bilaterally, positive crackles bilateral lower lobes, no wheeze, no rhonchi CVS: S1-S2 positive, no murmurs or gallops, distant heart sounds Abdomen: Soft, nontender, nondistended, positive bowel sounds x4, obese Extremities: +2 pulses bilaterally radialis/ dorsalis pedis, no cyanosis, +1 pitting edema bilateral lower extremity Neuro: Positive corneal, patient breathing over the vent, not following commands, decerebrate posturing, positive Babinski bilateral Psych: Unable to assess G/U: Positive Britton --Prophylaxis VTE: Heparin GI: Lansoprazole Lines: Left radial, peripheral Diet: N.p.o. Plan: In/out: -556, urine output 1125 AB.44/46/87 on 50% Chest x-ray from today shows improvement in the aeration of the left side of the lung. Continue with and maintain it around 36.5 for another 12 hours. Patient overnight was fighting the vent. And his blood pressure was going up patient was started on low-dose propofol Continue with amiodarone drip. Mild improvement in the creatinine. Hold Lasix for the time being. We will get neurology involved to get their input regarding prognosis. Repeat CT head without contrast tomorrow. I have personally spent additional 38 minutes of critical care time in the direct management of this patient. This is a life/limb threatening event. This includes time spent evaluating patient, direct bedside care, chart review, placing orders, interpretation of diagnostic studies, discussion with consultants, patient, and/or family members regarding treatment decisions, as well as other required patient management activities. This time is exclusive of all separately billable procedures, and teaching time and separate from and in addition to any other critical care service time. Subjective Per night report, patient did become intermittently restless and biting ETT despite several fentanyl boluses. Subsequently started on propofol. At the bedside this morning, patient is still obtunded. Slightly more motor activity today in general. No apparent distress. Breathing over vent. Review of Systems Review of Systems: as per HPI Physical Exam Physical Exam: General: Obese 70-year-old male who is minimally responsive to pain, tactile, or verbal stimuli, on the ventilator. At one point, he does open his eyes with painful stimuli and name-calling, but does not appear to be command following. Still occasionally demonstrates posturing of his upper extremities, and does bite the endotracheal tube intermittently. HEENT: NCAT. Eyes - Sclera are white, anicteric, and without injection. Neuro exam below. Mouth - unobservable due to tubes Cardiac: Normal rate and regular rhythm; S1 and S2 present with no appreciable murmurs, rubs, or gallops. Pulmonary: Ventilator-dependent. Right lung does demonstrate some persistent basilar crackles; auscultation of the left lung does demonstrate improvement of crackles but still diminished lung sounds Abdominal: Normoactive bowel sounds. Abdomen was soft and mildly distended. Extremities: Upper and lower extremities are warm and well perfused. Capillary refill in UEs approx. 3 seconds. 2+ pitting edema in LE's bilaterally. Neuro: Patient is obtunded, but more active than yesterday. Improved pupillary response, +corneal, +oculocephalic reflexes. During suctioning of the endotracheal tube, he does demonstrate some gag reflex. He has increased muscle tone in the upper and lower extremities, suggestive of spasticity. He also does occasionally demonstrate decerebrate posturing spontaneously, as well as with stimulation. Babinski upgoing. Results & Data Results & Data ([facility]) Vital Signs (Past 12 Hours) Vital Signs Temp Pulse Resp BP Pulse Ox 08/30/20 07:56 63 138/58 L 94 08/30/20 06:56 69 126/56 L 92 08/30/20 05:56 36.8 C 75 145/77 H 92 08/30/20 05:25 90 29 H 94 08/30/20 04:57 74 154/81 H 94 08/30/20 04:03 71 150/68 H 93 08/30/20 03:50 36.9 C 80 95 08/30/20 03:41 86 94 08/30/20 02:56 75 140/73 95 08/30/20 02:17 69 08/30/20 01:56 72 133/65 94 08/30/20 01:53 66 26 H 91 08/30/20 00:56 69 120/82 94 08/29/20 23:57 72 125/54 L 93 08/29/20 22:56 37.2 C 68 106/54 L 92 08/29/20 22:16 65 26 H 93 08/29/20 21:54 67 117/81 90 08/29/20 20:56 67 146/62 H 92 08/29/20 11:00 08/30/20 04:01 (1) CHF (congestive heart failure) Heart failure chronicity: acute on chronic Heart failure type: unspecified Qualified Code(s): I50.9 - Heart failure, unspecified (2) Anemia Anemia type: unspecified type Qualified Code(s): D64.9 - Anemia, unspecified
[2020-08-30] MEDS: FERROUS SULFATE 325 MG TAB PO SCH (08:37)
--- NOTE | 2020-08-30 09:14 | Cardiology Progress Note ---
Date of Service August 30, 2020 Assessment & Plan (1) Obesity, Class III, BMI 40-49.9 (morbid obesity): (2) Obstructive sleep apnea of adult: (3) Venous stasis ulcers of both lower extremities: (4) Lower extremity edema: (5) MGUS (monoclonal gammopathy of unknown significance): (6) Shortness of breath: (7) Cardiac arrest: Critical care note is appreciated. The patient is to have a neurologic evaluation today. The plan is to stop his amiodarone later today which I am in agreement. Further care in regard to extubation is per the ICU team. Admission and Anticipated Discharge Date Admission Date: August 26, 2020 Subjective The patient remains intubated. He required some sedation through the night due to agitation and chewing on the ET tube. Neurologic evaluation is planned for today. Review of Systems Review of Systems: Unobtainable due to endotracheal tube Physical Exam Physical Exam: General: Intubated and on a ventilator. Head: normocephalic, no masses, lesions, tenderness or abnormalities Eyes: conjunctiva are pink and non-injected, sclera clear Neck: supple, no adenopathy, no bruits, normal jugular venous pulse, no hepatojugular reflux Chest: normal shape and normal respiratory effort Lungs: clear to auscultation and percussion Cardiac Exam: - regular rate & rhythm, no murmurs gallops or rubs - normal S1, normal S2 Pulses: 2(+) throughout Abdomen: abdomen soft, non-tender, no abnormal masses and no hepatosplenomegaly Musculoskeletal: no gait disturbance, no joint inflammation, no deforming arthritis Extremities: no edema and no cyanosis Neuro: grossly normal exam Results & Data ([facility]) Vital Signs (Past 12 Hours) Vital Signs Temp Pulse Resp BP Pulse Ox 08/30/20 07:56 63 138/58 L 94 08/30/20 07:28 67 20 93 08/30/20 06:56 69 126/56 L 92 08/30/20 05:56 36.8 C 75 145/77 H 92 08/30/20 05:25 90 29 H 94 08/30/20 04:57 74 154/81 H 94 08/30/20 04:03 71 150/68 H 93 08/30/20 03:50 36.9 C 80 95 08/30/20 03:41 86 94 08/30/20 02:56 75 140/73 95 08/30/20 02:17 69 08/30/20 01:56 72 133/65 94 08/30/20 01:53 66 26 H 91 08/30/20 00:56 69 120/82 94 08/29/20 23:57 72 125/54 L 93 08/29/20 22:56 37.2 C 68 106/54 L 92 08/29/20 22:16 65 26 H 93 08/29/20 21:54 67 117/81 90 Laboratory Results Laboratory Results - last 24 hr 08/29/20 08/29/20 08/29/20 06:52 09:05 11:00 WBC RBC Hgb POC Hgb Hct POC Hct MCV MCH MCHC RDW Std Deviation RDW Coeff of Gopal Plt Count MPV Immature Gran % (Auto) Neut % (Auto) Lymph % (Auto) [place] % (Auto) Eos % (Auto) Baso % (Auto) Neut # (Auto) Lymph # (Auto) [place] # (Auto) Eos # (Auto) Baso # (Auto) Immature Gran # (Auto) Basophilic Stippling Sample Site POC pH POC pCO2 POC pO2 POC HCO3 POC Total CO2 POC Base Excess ABG pH (Temp Correct) ABG pCO2 (Temp Corrct POC ABG pO2 at Pt Temp POC ABG O2 Sat Elder Test O2 Delivery Device POC O2 Rate Minute Ventilation POC FiO2 Tidal Volume PEEP POC Sodium Sodium POC Potassium Potassium Chloride Carbon Dioxide Anion Gap BUN Creatinine Est Cr Clr Drug Dosing Est GFR ( Amer) Est GFR (Non-Af Amer) BUN/Creatinine Ratio Glucose POC Glucose Lactate Calcium Phosphorus 7.4 H Magnesium Total Bilirubin Direct Bilirubin AST ALT Alkaline Phosphatase Troponin I 0.116 H* Total Protein Albumin Fluid Neutrophils % 71 Fluid Lymphocytes % 26 Fluid Eosinophils % 0 Fl Monocyt/Macrophag % 3 Fluid Comment Blood Type Antibody Screen 08/29/20 08/29/20 08/29/20 11:00 11:00 11:05 WBC 6.77 RBC 2.46 L Hgb 7.8 L POC Hgb Hct 25.6 L POC Hct MCV 104.1 H MCH 31.7 MCHC 30.5 L RDW Std Deviation 68.0 H RDW Coeff of Gopal 18.0 H Plt Count 137 MPV 8.6 Immature Gran % (Auto) 0.3 Neut % (Auto) 81.8 Lymph % (Auto) 8.7 [place] % (Auto) 8.9 Eos % (Auto) 0.3 Baso % (Auto) 0.0 Neut # (Auto) 5.54 Lymph # (Auto) 0.59 L [place] # (Auto) 0.60 H Eos # (Auto) 0.02 Baso # (Auto) 0.00 Immature Gran # (Auto) 0.02 Basophilic Stippling 1+ Sample Site POC pH POC pCO2 POC pO2 POC HCO3 POC Total CO2 POC Base Excess ABG pH (Temp Correct) ABG pCO2 (Temp Corrct POC ABG pO2 at Pt Temp POC ABG O2 Sat Elder Test O2 Delivery Device POC O2 Rate Minute Ventilation POC FiO2 Tidal Volume PEEP POC Sodium Sodium POC Potassium Potassium Chloride Carbon Dioxide Anion Gap BUN Creatinine Est Cr Clr Drug Dosing Est GFR ( Amer) Est GFR (Non-Af Amer) BUN/Creatinine Ratio Glucose POC Glucose Lactate 1.0 Calcium Phosphorus Magnesium Total Bilirubin Direct Bilirubin AST ALT Alkaline Phosphatase Troponin I Total Protein Albumin Fluid Neutrophils % Fluid Lymphocytes % Fluid Eosinophils % Fl Monocyt/Macrophag % Fluid Comment Blood Type O Positive Antibody Screen NEGATIVE 08/29/20 08/29/20 08/29/20 11:30 15:00 16:02 WBC RBC Hgb POC Hgb Hct POC Hct MCV MCH MCHC RDW Std Deviation RDW Coeff of Gopal Plt Count MPV Immature Gran % (Auto) Neut % (Auto) Lymph % (Auto) [place] % (Auto) Eos % (Auto) Baso % (Auto) Neut # (Auto) Lymph # (Auto) [place] # (Auto) Eos # (Auto) Baso # (Auto) Immature Gran # (Auto) Basophilic Stippling Sample Site POC pH POC pCO2 POC pO2 POC HCO3 POC Total CO2 POC Base Excess ABG pH (Temp Correct) ABG pCO2 (Temp Corrct POC ABG pO2 at Pt Temp POC ABG O2 Sat Elder Test O2 Delivery Device POC O2 Rate Minute Ventilation POC FiO2 Tidal Volume PEEP POC Sodium Sodium POC Potassium Potassium Chloride Carbon Dioxide Anion Gap BUN Creatinine Est Cr Clr Drug Dosing Est GFR ( Amer) Est GFR (Non-Af Amer) BUN/Creatinine Ratio Glucose POC Glucose 219 H 223 H Lactate Calcium Phosphorus Magnesium Total Bilirubin Direct Bilirubin AST ALT Alkaline Phosphatase Troponin I 0.436 H* Total Protein Albumin Fluid Neutrophils % Fluid Lymphocytes % Fluid Eosinophils % Fl Monocyt/Macrophag % Fluid Comment Blood Type Antibody Screen 08/29/20 08/29/20 08/30/20 19:45 23:58 03:51 WBC RBC Hgb POC Hgb Hct POC Hct MCV MCH MCHC RDW Std Deviation RDW Coeff of Gopal Plt Count MPV Immature Gran % (Auto) Neut % (Auto) Lymph % (Auto) [place] % (Auto) Eos % (Auto) Baso % (Auto) Neut # (Auto) Lymph # (Auto) [place] # (Auto) Eos # (Auto) Baso # (Auto) Immature Gran # (Auto) Basophilic Stippling Sample Site POC pH POC pCO2 POC pO2 POC HCO3 POC Total CO2 POC Base Excess ABG pH (Temp Correct) ABG pCO2 (Temp Corrct POC ABG pO2 at Pt Temp POC ABG O2 Sat Elder Test O2 Delivery Device POC O2 Rate Minute Ventilation POC FiO2 Tidal Volume PEEP POC Sodium Sodium POC Potassium Potassium Chloride Carbon Dioxide Anion Gap BUN Creatinine Est Cr Clr Drug Dosing Est GFR ( Amer) Est GFR (Non-Af Amer) BUN/Creatinine Ratio Glucose POC Glucose 195 H 177 H 147 H Lactate Calcium Phosphorus Magnesium Total Bilirubin Direct Bilirubin AST ALT Alkaline Phosphatase Troponin I Total Protein Albumin Fluid Neutrophils % Fluid Lymphocytes % Fluid Eosinophils % Fl Monocyt/Macrophag % Fluid Comment Blood Type Antibody Screen 08/30/20 08/30/20 08/30/20 04:01 05:22 07:34 WBC RBC Hgb POC Hgb 8.5 L Hct POC Hct 25 L MCV MCH MCHC RDW Std Deviation RDW Coeff of Gopal Plt Count MPV Immature Gran % (Auto) Neut % (Auto) Lymph % (Auto) [place] % (Auto) Eos % (Auto) Baso % (Auto) Neut # (Auto) Lymph # (Auto) [place] # (Auto) Eos # (Auto) Baso # (Auto) Immature Gran # (Auto) Basophilic Stippling Sample Site Art Line POC pH 7.44 POC pCO2 46 POC pO2 87 POC HCO3 31 H POC Total CO2 33 H POC Base Excess 7.0 H ABG pH (Temp Correct) 7.435 ABG pCO2 (Temp Corrct 46 POC ABG pO2 at Pt Temp 87 POC ABG O2 Sat 97.0 H Elder Test NA O2 Delivery Device Ventilator POC O2 Rate 25 Minute Ventilation 11.7 POC FiO2 50 Tidal Volume 450 PEEP 8 POC Sodium 142 Sodium 140 POC Potassium 4.0 Potassium 4.0 Chloride 105 Carbon Dioxide 32 Anion Gap 3.0 BUN 68 H Creatinine 2.09 H D Est Cr Clr Drug Dosing 45.0 Est GFR ( Amer) 36.1 Est GFR (Non-Af Amer) 31.1 BUN/Creatinine Ratio 32.7 H Glucose 144 H POC Glucose 137 H Lactate Calcium 8.3 L Phosphorus 3.3 D Magnesium 2.5 H Total Bilirubin 0.5 Direct Bilirubin 0.2 AST 22 ALT 22 Alkaline Phosphatase 99 Troponin I 0.596 H* Total Protein 7.3 Albumin 3.0 L Fluid Neutrophils % Fluid Lymphocytes % Fluid Eosinophils % Fl Monocyt/Macrophag % Fluid Comment Blood Type Antibody Screen Medications Administered Current Inpatient Medications Acetaminophen (Acetaminophen 325 Mg Tab) 650 mg PO Q4H PRN PRN Reason: Pain or Fever Stop: 09/25/20 19:48 Last Admin: 08/29/20 20:53 Dose: 650 mg Documented by: Al Hydrox/Mg Hydrox/Simethicone (Aluminum/Magnesium Susp 30 Ml Udc) 15 ml PO Q4H PRN PRN Reason: Dyspepsia Stop: 09/25/20 19:48 Albuterol (Albuterol Hfa 8 Gm Inhaler) 1 puffs INH QID PRN PRN Reason: sob Stop: 09/25/20 20:03 Last Admin: 08/27/20 14:45 Dose: 1 puffs Documented by: Ascorbic Acid (Ascorbic Acid 500 Mg Tab) 250 mg PO DAILY [facility] Stop: 09/26/20 08:59 Last Admin: 08/30/20 08:31 Dose: 250 mg Documented by: Aspirin (Aspirin 81 Mg Chew) 81 mg NG DAILY CONNIE Stop: 09/28/20 10:59 Last Admin: 08/30/20 08:34 Dose: 81 mg Documented by: Atorvastatin Calcium (Atorvastatin 40 Mg Tab) 40 mg PO HS [facility] Stop: 09/25/20 20:59 Last Admin: 08/29/20 20:39 Dose: 40 mg Documented by: Cetirizine HCl (Cetirizine Hcl 10 Mg Tablet) 5 mg PO DAILY CONNIE Stop: 09/26/20 08:59 Last Admin: 08/30/20 08:35 Dose: 5 mg Documented by: Clonidine HCl (Clonidine Hcl 0.3 Mg Tab) 0.3 mg PO BID CONNIE Stop: 09/25/20 20:59 Last Admin: 08/30/20 08:30 Dose: 0.3 mg Documented by: Cyanocobalamin (Cyanocobalamin 500 Mcg Tablet (Vitamin B-12)) 1,000 mcg PO DAILY CONNIE Stop: 09/26/20 08:59 Last Admin: 08/30/20 08:35 Dose: 1,000 mcg Documented by: Dextrose (Dextrose 50% 50 Ml Syringe) 25 - 50 ml IV UD PRN; Protocol PRN Reason: Hypoglycemia Protocol Stop: 09/25/20 19:48 Fentanyl Citrate (Fentanyl Citrate 100 Mcg/2 Ml Vial) 50 mcg IV Q2H PRN PRN Reason: Pain Stop: 09/12/20 10:28 Last Admin: 08/30/20 05:22 Dose: 50 mcg Documented by: Ferrous Sulfate (Ferrous Sulfate 325 Mg Tab) 325 mg PO DAILY CONNIE Stop: 09/26/20 08:59 Last Admin: 08/30/20 08:37 Dose: Not Given Documented by: Finasteride (Finasteride 5 Mg Tab) 5 mg PO DAILY CONNIE Stop: 09/26/20 08:59 Last Admin: 08/30/20 08:34 Dose: 5 mg Documented by: Glucagon (Glucagon For Inj 1 Mg Vial) 1 mg SQ UD PRN; Protocol PRN Reason: Hypoglycemia Protocol Stop: 09/25/20 19:48 Glucose (Glucose 10 Tabs/Tube) 4 - 8 tabs PO UD PRN; Protocol PRN Reason: Hypoglycemia Protocol Stop: 09/25/20 19:48 Glucose (Glucose 40% Gel 15 Gm Tube) 15 - 30 gm PO UD PRN; Protocol PRN Reason: Hypoglycemia Protocol Stop: 09/25/20 19:48 Heparin Sodium (Porcine) (Heparin Sod 5,000 Unit/0.5 Ml Vial) 7,500 units SQ Q8 CONNIE Stop: 09/27/20 21:59 Last Admin: 08/30/20 05:35 Dose: 7,500 units Documented by: Hydralazine HCl (Hydralazine Tab 50 Mg Tab) 100 mg PO TID CONNIE Stop: 09/25/20 20:59 Last Admin: 08/30/20 08:31 Dose: 100 mg Documented by: Hydralazine HCl (Hydralazine Hcl 20 Mg/Ml Vial) 10 mg IV Q6H PRN PRN Reason: for SBP above 170 Stop: 09/25/20 19:48 Furosemide 40 mg/ Syringe 4 mls @ 4 mls/min IV BID [facility] Stop: 09/25/20 20:59 Last Admin: 08/29/20 10:22 Dose: Not Given Documented by: Amiodarone HCl/Dextrose (Nexterone / D5w) 360 mg in 200 mls @ 16.667 mls/hr IV .Q12H CONNIE Stop: 08/30/20 10:00 Last Admin: 08/30/20 03:45 Dose: 0.5 mg/min, 16.7 mls/hr Documented by: Propofol (Diprivan) 1,000 mg in 100 mls @ 16.716 mls/hr IV .Q5H59M CONNIE; Protocol Stop: 09/02/20 05:29 Last Admin: 08/30/20 05:48 Dose: 20 mcg/kg/min, 16.7 mls/hr Documented by: Insulin Aspart (Insulin Aspart 100 Units/Ml 3 Ml Pen) 0 units SC Q4 [facility] Stop: 09/28/20 11:59 Last Admin: 08/30/20 08:13 Dose: Not Given Documented by: Lansoprazole (Lansoprazole 30 Mg Soltab) 30 mg NG QAM [facility] Stop: 09/28/20 10:59 Last Admin: 08/30/20 08:34 Dose: 30 mg Documented by: Lisinopril (Lisinopril 40 Mg Tab) 40 mg PO DAILY [facility] Stop: 09/26/20 08:59 Last Admin: 08/30/20 08:32 Dose: 40 mg Documented by: Magnesium Hydroxide (Magnesium Hydroxide Susp 30 Ml Udc) 30 ml PO Q12H PRN PRN Reason: Constipation Stop: 09/25/20 19:48 Midazolam HCl (Midazolam Hcl 1 Mg/Ml 2ml Vial) 1 mg IV Q2H PRN PRN Reason: RASS goal -1 Stop: 09/28/20 21:11 Last Admin: 08/30/20 03:45 Dose: 1 mg Documented by: Miscellaneous (Carbohydrates For Hypoglycemia ) 15 - 30 gm PO UD PRN PRN Reason: Hypoglycemia Protocol Stop: 09/25/20 19:48 Last Admin: 08/28/20 01:58 Dose: 30 gm Documented by: Miscellaneous (Stop Order) 1 ea N/A ONE ONE Stop: 08/30/20 10:01 Miscellaneous Information (Pharmacy Glycemic Mgmt Consult) 1 ea N/A UD PRN; Protocol PRN Reason: Consult Stop: 09/25/20 20:02 Ondansetron HCl (Ondansetron Inj 2 Mg/Ml 2 Ml Vial) 4 mg IV Q6H PRN PRN Reason: Nausea Stop: 09/25/20 19:48 Polyethylene Glycol (Polyethylene (Miralax) 17 Gm Pack) 17 gm PO DAILY PRN PRN Reason: Constipation Stop: 09/25/20 19:48 Propofol (Propofol Bolus From Bag) 20 mg IV Q5M PRN PRN Reason: Sedation Stop: 09/02/20 05:23 Last Admin: 08/30/20 06:00 Dose: 20 mg Documented by: Terazosin HCl (Terazosin Hcl 5 Mg Cap) 5 mg PO DAILY CONNIE Stop: 09/26/20 08:59 Last Admin: 08/30/20 08:33 Dose: 5 mg Documented by: Vitamin D (Cholecalciferol 1,000 Units 25 Mcg Tab) 1,000 units PO DAILY CONNIE Stop: 09/26/20 08:59 Last Admin: 08/30/20 08:33 Dose: 1,000 units Documented by:
--- NOTE | 2020-08-30 10:45 | Neurology Consultation ---
Date of Consultation August 30, 2020 Assessment & Plan (1) Anoxic encephalopathy: Anoxic encephalopathy following cardiac arrest early yesterday morning. Patient does have intact brainstem reflexes and will reflexively withdraw the limbs to noxious stimulation. He does exhibit some decerebrate posturing with the right upper limb to noxious stimulation as well. Prognosis guarded. Would continue to monitor for neurologic improvement over the next 24 to 48 hours. Would consider obtaining an EEG Tuesday to assist with prognosis. No clinical evidence of post anoxic seizures or myoclonus at this time. Would not recommend an anticonvulsant at this time. I agree with follow-up CT of the head to be completed tomorrow morning. Would consider obtaining a brain MRI without contrast if able. I will follow along. History of Present Illness Reason for Consultation: Anoxic encephalopathy, assist with prognosis Requesting Physician: Isaias Padilla MD Attending Physician: Neha Glover MD History of Present Illness The patient is a 70-year-old male who was admitted to the [facility] on August 26 with shortness of breath occurring in the context of right heart failure, obesity, hypoventilation syndrome, anemia, monoclonal gammopathy of undetermined significance. History also notable for hypertension, hyperlipidemia, diabetes mellitus, peripheral neuropathy, chronic kidney disease, and Tineo's palsy. Patient had a cardiac arrest early yesterday morning in the progressive care unit. A CODE BLUE was called. CPR was administered for 15 to 20 minutes. He was noted to be in ventricular fibrillation and was hypotensive for a brief period of time prior to stabilization. He was transferred to the intensive care unit and has been on the ventilator with sedation. Does have intact brainstem reflexes and will exhibit some posturing with noxious stimulation. Patient did have a CT of the head completed after his cardiac arrest that was negative for hemorrhage or acute process. I did review the images as well as the radiologist interpretation of this test. Neurology has been consulted to assist with prognosis. Patient was unable to provide any details as he is currently sedated on the ventilator. Allergies Allergy/AdvReac Type Severity Reaction Status Date / Time No Known Allergies Allergy Verified 08/26/20 14:54 Home Medications Medication Instructions Recorded Confirmed Type albuterol sulfate [ProAir HFA] 1 puff INHALATION QID PRN 08/26/20 08/26/20 History aspirin [Aspir-81] 81 mg PO DAILY 08/26/20 08/26/20 History atorvastatin 40 mg PO HS 08/26/20 08/26/20 History carvedilol 18.75 mg PO BID 08/26/20 08/26/20 History cetirizine 5 mg PO DAILY 08/26/20 08/26/20 History cholecalciferol (vitamin D3) 25 mcg PO DAILY 08/26/20 08/26/20 History clonidine HCl 0.3 mg PO BID 08/26/20 08/26/20 History cyanocobalamin (vitamin B-12) 1,000 mcg PO DAILY 08/26/20 08/26/20 History finasteride 5 mg PO DAILY 08/26/20 08/26/20 History hydralazine 100 mg PO TID 08/26/20 08/26/20 History insulin NPH and regular human 0 unit SUBCUT UD 08/26/20 08/26/20 History insulin regular human 1 sliding scale dose SUBCUT 08/26/20 08/26/20 History USEASDIRECTD iron,carbonyl-vitamin C [Vitron-C] 1 tab PO DAILY 08/26/20 08/26/20 History lisinopril 40 mg PO DAILY 08/26/20 08/26/20 History magnesium oxide 140 mg PO DAILY 08/26/20 08/26/20 History omeprazole 20 mg PO HS 08/26/20 08/26/20 History terazosin 5 mg PO DAILY 08/26/20 08/26/20 History torsemide 100 mg PO BID 08/26/20 08/26/20 History Patient History Medical History Acute urinary retention BPH (benign prostatic hyperplasia) CKD (chronic kidney disease) Diabetes Dyslipidemia Fall Gastroesophageal reflux disease Hematuria, gross HTN (hypertension) Insomnia Neuropathy Obesity, Class III, BMI 40-49.9 (morbid obesity) Obstructive sleep apnea of adult RBBB Tachy-jazlyn syndrome Venous insufficiency Surgical History H/O circumcision H/O esophagogastroduodenoscopy H/O inguinal hernia repair History of tonsillectomy and adenoidectomy History of uvulopalatopharyngoplasty Hx of colonoscopy S/P cataract surgery S/P transurethral resection of prostate Family History Sister Crohn's disease Diabetes Mother Diabetes Brother Kidney disease Heart disease Other FH: cataracts Social History Smoking Status: Former smoker Tobacco Type: Cigarettes packs per day: 1; Smoking End Date: 1987; Hx Alcohol Use: No Hx Substance Use: No Preferred Language: [place] Communication Ability: Effective Business Leader Required: No Beliefs That Will Affect Care: None marital status: Current Living Situation: Spouse How many Children do You have: 2 Other Information That Helps Us Care for You: No Feels Safe at Home: Yes Safety Concerns: Feels Safe At This Time Assistive Devices: None Review of Systems Review of Systems: Unobtainable due to reduced consciousness Exam (Neuro) Constitutional: + morbidly obese and + mechanically ventilated Eyes: + pinpoint pupils Corneal and oculocephalic reflexes intact. Unable to perform direct ophthalmoscopic examination. Cardiovascular: Vessels: normal carotid upstroke; no carotid bruit Neurologic: Oriented to:: negative Person, Place and Time Memory: negative Short Term Intact and Remote Intact Attention: negative Span Intact and Concentration Intact Fund of Knowledge: negative Current Events, Past History and Vocabulary Sensation: negative Light Touch Intact, Pain/Temperature Intact, Vibration Intact and Proprioception Intact Details: Testing of cognitive and higher integrative function cannot be completed as patient is sedated on the mechanical ventilator. Evaluation of cranial nerves is limited as well. Pupils are pinpoint. No gaze preference. Oculocephalic reflex is intact. Corneal reflex is intact. Gag reflex intact. Patient does not exhibit any spontaneous movements of the limbs. He will exhibit decerebrate posturing of the right upper extremity with noxious stimulation. Withdraws all 4 limbs to noxious stimulation. Testing of coordination and balance cannot be completed. Results & Data ([facility]) Vital Signs (Past 12 Hours) Vital Signs Temp Pulse Resp BP Pulse Ox 08/30/20 08:00 65 08/30/20 07:56 63 138/58 L 94 08/30/20 07:28 67 20 93 08/30/20 06:56 69 126/56 L 92 08/30/20 05:56 36.8 C 75 145/77 H 92 08/30/20 05:25 90 29 H 94 08/30/20 04:57 74 154/81 H 94 08/30/20 04:03 71 150/68 H 93 08/30/20 03:50 36.9 C 80 95 08/30/20 03:41 86 94 08/30/20 02:56 75 140/73 95 08/30/20 02:17 69 08/30/20 01:56 72 133/65 94 08/30/20 01:53 66 26 H 91 08/30/20 00:56 69 120/82 94 08/29/20 23:57 72 125/54 L 93 08/29/20 22:56 37.2 C 68 106/54 L 92 Laboratory Results WBC 6.77, hemoglobin 7.8, hematocrit 25.6, platelet count 137, sodium 142, potassium 4.0, BUN 68, creatinine 2.09, calcium 8.3, magnesium 2.5, troponin [address] of the head completed August 29 is as described in the history of present illness. I reviewed the images as well as the radiologist interpretation of this test. An electrocardiogram reveals atrial fibrillation with frequent aberrantly conducted complexes. Coding Level of Care Code 56866 Initial Inpt Care Lvl 3 Diagnoses Anoxic encephalopathy G93.1
--- NOTE | 2020-08-30 12:08 | Billing Data ---
Date of Service August 30, 2020 Coding Level of Care Code Critical Care 1st 30-74 mins Time Spent (min) 38
--- NOTE | 2020-08-30 12:41 | Hospitalist Progress Note ---
Date of Service August 30, 2020 Assessment & Plan (1) Cardiac arrest: Patient had CODE BLUE/cardiac arrest at early hours today. Possible hypoxia/CO2 retention, patient has been refusing BiPAP, Per record patient was noted to be agitated confused, later became apneic and went to a ASYSTOLE Was regained after more than 20 minutes of CPR remains intubated , possible anoxic encephalopathy appreciate input from Neurology plan for EEG on tuesday Hypoxemic respiratory failure acute on chronic: With hypercarbia, respiratory acidosis. Combination of CO2 retention history of severe obstructive need sleep apnea, worsening of congestive heart failure due to hypoxemia. Aspiration before or during CODE BLUE. 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 due to cardiac arrest, hypoxemic respiratory failure. LACTIC ACIDOSIS : due to cardiac arrest , respiratory failure /hypoxia cont vent management as per ICU team (4) Obesity, Class III, BMI 40-49.9 (morbid obesity): -BMI of 46.8,with severe FLETCHER has been non compliant with Bipap -possible leading to hypercarbic respiratory failure /cardiac arrest due to severe hypoxemia (5) Venous stasis ulcers of both lower extremities: present on admission wound care consulted (6) Chronic venous insufficiency: s/p sclerotherapy by Dr. Villalba's (7) MGUS (monoclonal gammopathy of unknown significance): - Received Retacrit injection on 08/19/2020 and 08/26/2020, pt hgb was 7.6 as an outpatient, baseline is 8.0, . code status : full code over all prognosis remains guarded family updated at bedside Admission and Anticipated Discharge Date Admission Date: August 26, 2020 Subjective Follow-up visit for cardiac arrest, acute on chronic hypoxemic respiratory failure, anoxic encephalopathy Patient remained on ventilatory support Per nursing report had to start on sedation, for increased agitation Neurology evaluated the patient earlier, prognosis remains grim Daughter and present at bedside aware of the prognosis, Physical Exam Constitutional: WD/WN, vitals as above + morbidly obese (Unresponsive without any sedation on mechanical ventilation) Eyes: PERRL, conjunctivae normal, anicteric sclerae ENMT: external ear and nose normal, oropharynx normal Neck: trachea midline, no thyromegaly Respiratory: Auscultation: + diminished lung sounds, + crackles, + rales and + wheezes Cardiovascular: Rate/Rhythm: regular rate, regular rhythm and + irregularly irregular Extremities: + edema (Bilateral +3 pitting edema, chronic venous stasis changes,) Gastrointestinal (Abdomen): Percussion/Palpation: abdomen soft Neurologic: PERRL, EOMI, accommodation nl, no face palsy, no dysarthria + obtunded (Not responding to painful stimuli, not on any sedation) Psychiatric: Orientation: alert and oriented x 3 Results & Data Results & Data ([facility]) Vital Signs (Past 12 Hours) Vital Signs Temp Pulse Resp BP Pulse Ox 08/30/20 11:30 69 24 94 08/30/20 11:00 68 100 08/30/20 10:00 36.6 C 08/30/20 09:56 60 103/44 L 92 08/30/20 08:56 68 158/65 H 93 08/30/20 08:00 36.5 C 65 08/30/20 07:56 63 138/58 L 94 08/30/20 07:28 67 20 93 08/30/20 06:56 69 126/56 L 92 08/30/20 05:56 36.8 C 75 145/77 H 92 08/30/20 05:25 90 29 H 94 08/30/20 04:57 74 154/81 H 94 08/30/20 04:03 71 150/68 H 93 08/30/20 03:50 36.9 C 80 95 08/30/20 03:41 86 94 08/30/20 02:56 75 140/73 95 08/30/20 02:17 69 08/30/20 01:56 72 133/65 94 08/30/20 01:53 66 26 H 91 08/30/20 00:56 69 120/82 94
[2020-08-30] MEDS ORDERED: PEPTAMEN INTENSE VHP 1.0 CAL 1,000 ML BAG OG SCH (15:15)
[2020-08-30 15:26] LABS: Eosinophils # (auto) 0.02 K/uL (0-0.5); Eosinophils % (auto) 0.3 %; Hematocrit (blood only) 25.1 % (42-52); Hemoglobin 7.7 g/dL (14.0-18.0); Immature Granulocytes # (auto) 0.01 K/uL (0.00-0.02); Immature Granulocytes % (auto) 0.2 %; Lymphocytes # (auto) 0.69 K/uL (1.2-3.4); Lymphocytes % (auto) 11.1 %; Mean Corpuscular Hemoglobin 31.3 pg (25-34); Mean Corpuscular Hgb Conc 30.7 g/dL (32-36); Mean Platelet Volume 8.7 fL (7.4-10.4); Monocytes # (auto) 0.82 K/uL (0.11-0.59); Monocytes % (auto) 13.1 %; Neutrophils % (auto) 75.3 %; Platelet Count 139 K/uL (130-400); RDW Coefficient of Variation 17.8 % (11.5-14.5); RDW Standard Deviation 66.9 fL (36.4-46.3); Red Blood Count 2.46 M/uL (4.7-6.1); White Blood Count 6.24 K/uL (4.8-10.8)
[2020-08-30] MEDS: TUBE FEEDING WATER FLUSH OG SCH ×3 (15:41→23:23)
[2020-08-30 15:51] LABS: Basophilic Stippling Occasional; Hypochromasia Present
[2020-08-30] MEDS: AMPICILLIN/SULBACTAM SOD 1,500 MG in 0.9 % SODIUM CHLORIDE 100 ML IV SCH ×2 (17:42→23:22)
[2020-08-30] MEDS: ATORVASTATIN 40 MG TAB PO SCH (20:21)
[2020-08-30] MEDS: INSULIN GLARGINE SOLOSTAR 100 UNITS/ML 3 ML PEN SC SCH (20:22)
[2020-08-31 04:38] LABS: Eosinophils # (auto) 0.03 K/uL (0-0.5); Eosinophils % (auto) 0.5 %; Hematocrit (blood only) 25.4 % (42-52); Hemoglobin 7.7 g/dL (14.0-18.0); Immature Granulocytes # (auto) 0.01 K/uL (0.00-0.02); Immature Granulocytes % (auto) 0.2 %; Lymphocytes # (auto) 0.76 K/uL (1.2-3.4); Lymphocytes % (auto) 13.5 %; Mean Corpuscular Hemoglobin 31.6 pg (25-34); Mean Corpuscular Hgb Conc 30.3 g/dL (32-36); Mean Corpuscular Volume 104.1 fL (80-100); Mean Platelet Volume 9.5 fL (7.4-10.4); Monocytes # (auto) 0.72 K/uL (0.11-0.59); Monocytes % (auto) 12.8 %; Neutrophils # (auto) 4.12 K/uL (1.4-6.5); Platelet Count 159 K/uL (130-400); RDW Coefficient of Variation 17.7 % (11.5-14.5); RDW Standard Deviation 67.9 fL (36.4-46.3); Red Blood Count 2.44 M/uL (4.7-6.1); White Blood Count 5.64 K/uL (4.8-10.8)
[2020-08-31] MEDS: propofoL 1,000 MG/100 ML VIAL IV SCH ×4 (04:53→11:11)
[2020-08-31 05:01] LABS: BUN Creatinine Ratio 38.7 (10-20); Calcium 8.6 mg/dl (8.5-10.1); Creatinine Clr Calc Pharmacy 47.2 ml/min; Est GFR (African American) 38.5 ml/min; Est GFR (Non-African American) 33.2 ml/min; Magnesium 2.7 mg/dl (1.8-2.4); Potassium 3.8 mmol/L (3.5-5.1)
[2020-08-31 05:12] LABS: Phosphorus 3.9 mg/dl (2.5-4.9)
[2020-08-31 05:18] LABS: RBC Morphology Unremarkable
[2020-08-31] MEDS: INSULIN ASPART 100 UNITS/ML 3 ML PEN SC SCH ×4 (05:20→15:44)
[2020-08-31] MEDS: TUBE FEEDING WATER FLUSH OG SCH ×4 (05:21→15:44)
[2020-08-31 05:53] LABS: iSTAT Art Bld Gas pCO2 Correct 50 mmHg (35-46); iSTAT Art Bld Gas pH Corrected 7.394 (7.35-7.45); iSTAT Arterial Blood Gas HCO3 30 meg/L (19-24); iSTAT Arterial Blood Gas pCO2 50 mmHg (35-46); iSTAT Arterial Blood Gas pH 7.39 (7.35-7.45); iSTAT Arterial Blood Gas pO2 60 mmHg (80-95); iSTAT Arterial Blood Gas pO2 C 59; iSTAT Carbon Dioxide 32 mmol/L (24-31); iSTAT FiO2 40 %; iSTAT Hematocrit 23 % (42-52); iSTAT Hemoglobin 7.8 g/dl (14.0-18.0); iSTAT Potassium 3.6 mmol/L (3.3-5.0); iSTAT Site Art Line; iSTAT Sodium 142 mmol/L (135-144)
[2020-08-31] MEDS: AMPICILLIN/SULBACTAM SOD 1,500 MG in 0.9 % SODIUM CHLORIDE 100 ML IV SCH ×3 (06:28→16:00)
[2020-08-31] MEDS: HEPARIN SOD 5,000 UNIT/0.5 ML VIAL SQ SCH ×2 (06:29→13:25)
--- NOTE | 2020-08-31 07:19 | XRay Report ---
XR chest 1V portable HISTORY: 70 years-old Male f/u acute respiratory failure COMPARISON: 08/30/2020 TECHNIQUE: Portable AP view of the chest FINDINGS: Cardiac silhouette is enlarged. Endotracheal tube overlies the midline, 5.1 cm superior to the jay . Enteric tube courses below the diaphragm outside the [id number]. Pulmonary vascular congestion w ith persistent interstitial opacities. There is mild right hemidiaphragmatic elevation with persisten t right lung base densities. Blunting of the costophrenic angles. Degenerative changes of the shoulde rs and spine. IMPRESSION: 1. Lines and tubes as above. 2. Cardiomegaly with pulmonary vascular congestion and persistent interstitial opacities. 3. Mild right hemidiaphragmatic elevation with right lung base opacities. ACT 112: Negative or not required by law. The above report was generated using voice recognition software. It may contain grammatical, syntax o r spelling errors. Electronically signed by: Chase Galaviz M.D. 08/31/2020 7:18 AM
[2020-08-31] MEDS: FERROUS SULFATE 325 MG TAB PO SCH (07:40)
[2020-08-31] MEDS: FINASTERIDE 5 MG TAB PO SCH (07:41)
--- NOTE | 2020-08-31 08:40 | CT Scan Report ---
CT head/brain wo con CLINICAL HISTORY: 70 years-old Male with anoxic encephalopathy - s/p 48hr from cpr. Acutely altered mental status TECHNIQUE: Multiple axial CT images of the head were obtained without contrast. A dose lowering tech nique was utilized adhering to the principles of ALARA. CT DOSE: 614.27 mGy.cm COMPARISON: Head CT 08/29/2020, 04/12/2013 FINDINGS: No acute intracranial hemorrhage, midline shift, intracranial mass, hydrocephalus, territorial ischem ia or abnormal extra-axial collection. White matter hypodensities suggestive of chronic microvascular ischemic disease. Unchanged chronic lacunar infarct of the left caudate nucleus, 6 mm. Cerebral vasc ular calcifications. The calvarium is intact. Partially imaged endotracheal and enteric tubes. Prior bilateral lens repair . The paranasal sinuses, mastoid air cells, and middle ear cavities are clear. IMPRESSION: No acute intracranial abnormality. ACT 112: Negative or not required by law. The above report was generated using voice recognition software. It may contain grammatical, syntax o r spelling errors. Electronically signed by: Chase Galaviz M.D. 08/31/2020 8:39 AM
[2020-08-31] MEDS ORDERED: carvediloL 12.5 MG TAB PO SCH (09:00)
[2020-08-31] MEDS: ASPIRIN 81 MG CHEW NG SCH (09:37)
[2020-08-31] MEDS: fentaNYL citrate 100 MCG/2 ML VIAL IV PRN (09:37)
[2020-08-31] MEDS: cloNIDine HCL 0.3 MG TAB PO SCH (09:38)
[2020-08-31] MEDS: LANSOPRAZOLE 30 MG SOLTAB NG SCH (09:38)
[2020-08-31] MEDS: lisinopril 40 MG TAB PO SCH (09:39)
[2020-08-31] MEDS: CYANOCOBALAMIN 500 MCG TABLET (VITAMIN B-12) PO SCH (09:39)
[2020-08-31] MEDS: CHOLECALCIFEROL 1,000 UNITS 25 MCG TAB PO SCH (09:39)
[2020-08-31] MEDS: CETIRIZINE HCL 10 MG TABLET PO SCH (09:39)
[2020-08-31] MEDS: TERAZOSIN HCL 5 MG CAP PO SCH (09:39)
[2020-08-31] MEDS: ASCORBIC ACID 500 MG TAB PO SCH (09:39)
[2020-08-31] MEDS: ACETAMINOPHEN 325 MG TAB PO PRN (09:39)
[2020-08-31] MEDS: hydrALAZINE TAB 50 MG TAB PO SCH ×2 (09:40→11:06)
--- NOTE | 2020-08-31 09:41 | Cardiology Progress Note ---
Date of Service August 31, 2020 Assessment & Plan (1) Obesity, Class III, BMI 40-49.9 (morbid obesity): (2) Obstructive sleep apnea of adult: (3) Venous stasis ulcers of both lower extremities: (4) Lower extremity edema: (5) MGUS (monoclonal gammopathy of unknown significance): (6) Shortness of breath: (7) Cardiac arrest: The patient's neurologic status is not significantly changed. Probable hypoxic encephalopathy post cardiac arrest. Overall prognosis is poor. Admission and Anticipated Discharge Date Admission Date: August 26, 2020 Subjective The patient status is unchanged. He is currently undergoing a bronchoscopy to help clear secretions. Review of Systems Review of Systems: Unobtainable due to endotracheal tube Physical Exam Physical Exam: General: Nonresponsive and intubated Head: normocephalic, no masses, lesions, tenderness or abnormalities Eyes: conjunctiva are pink and non-injected, sclera clear Neck: supple, no adenopathy, no bruits, normal jugular venous pulse, no hepato jugular reflux Chest: normal shape and normal respiratory effort Lungs: clear to auscultation and percussion Cardiac Exam: - regular rate & rhythm, no murmurs gallops or rubs - normal S1, normal S2 Pulses: 2(+) throughout Abdomen: abdomen soft, non-tender, no abnormal masses and no hepatosplenomegaly Musculoskeletal: no gait disturbance, no joint inflammation, no deforming arthritis Extremities: no edema and no cyanosis Neuro: grossly normal exam Results & Data ([facility]) Vital Signs (Past 12 Hours) Vital Signs Pulse Resp BP Pulse Ox 08/31/20 07:50 79 25 H 93 08/31/20 05:35 76 19 88 L 08/31/20 04:00 190/61 H 08/31/20 02:13 77 31 H 91 08/31/20 00:00 153/56 H 08/30/20 22:38 74 27 H 94 Laboratory Results Laboratory Results - last 24 hr 08/30/20 08/30/20 08/30/20 11:32 15:11 16:02 WBC 6.24 RBC 2.46 L Hgb 7.7 L POC Hgb Hct 25.1 L POC Hct MCV 102.0 H MCH 31.3 MCHC 30.7 L RDW Std Deviation 66.9 H RDW Coeff of Gopal 17.8 H Plt Count 139 MPV 8.7 Immature Gran % (Auto) 0.2 Neut % (Auto) 75.3 Lymph % (Auto) 11.1 Nuckolls % (Auto) 13.1 Eos % (Auto) 0.3 Baso % (Auto) 0.0 Neut # (Auto) 4.70 Lymph # (Auto) 0.69 L Nuckolls # (Auto) 0.82 H Eos # (Auto) 0.02 Baso # (Auto) 0.00 Immature Gran # (Auto) 0.01 RBC Morphology Hypochromasia Present Basophilic Stippling Occasional Sample Site POC pH POC pCO2 POC pO2 POC HCO3 POC Total CO2 POC Base Excess ABG pH (Temp Correct) ABG pCO2 (Temp Corrct POC ABG pO2 at Pt Temp POC ABG O2 Sat Elder Test O2 Delivery Device POC O2 Rate Minute Ventilation POC FiO2 Tidal Volume PEEP POC Sodium Sodium POC Potassium Potassium Chloride Carbon Dioxide Anion Gap BUN Creatinine Est Cr Clr Drug Dosing Est GFR ( Amer) Est GFR (Non-Af Amer) BUN/Creatinine Ratio Glucose POC Glucose 154 H 153 H Calcium Phosphorus Magnesium 08/30/20 08/30/20 08/31/20 20:08 23:18 04:21 WBC 5.64 RBC 2.44 L Hgb 7.7 L POC Hgb Hct 25.4 L POC Hct MCV 104.1 H MCH 31.6 MCHC 30.3 L RDW Std Deviation 67.9 H RDW Coeff of Gopal 17.7 H Plt Count 159 MPV 9.5 Immature Gran % (Auto) 0.2 Neut % (Auto) 73.0 Lymph % (Auto) 13.5 Nuckolls % (Auto) 12.8 Eos % (Auto) 0.5 Baso % (Auto) 0.0 Neut # (Auto) 4.12 Lymph # (Auto) 0.76 L Nuckolls # (Auto) 0.72 H Eos # (Auto) 0.03 Baso # (Auto) 0.00 Immature Gran # (Auto) 0.01 RBC Morphology Unremarkable Hypochromasia Basophilic Stippling Sample Site POC pH POC pCO2 POC pO2 POC HCO3 POC Total CO2 POC Base Excess ABG pH (Temp Correct) ABG pCO2 (Temp Corrct POC ABG pO2 at Pt Temp POC ABG O2 Sat Elder Test O2 Delivery Device POC O2 Rate Minute Ventilation POC FiO2 Tidal Volume PEEP POC Sodium Sodium POC Potassium Potassium Chloride Carbon Dioxide Anion Gap BUN Creatinine Est Cr Clr Drug Dosing Est GFR ( Amer) Est GFR (Non-Af Amer) BUN/Creatinine Ratio Glucose POC Glucose 162 H 158 H Calcium Phosphorus Magnesium 08/31/20 08/31/20 04:21 05:37 WBC RBC Hgb POC Hgb 7.8 L Hct POC Hct 23 L MCV MCH MCHC RDW Std Deviation RDW Coeff of Gopal Plt Count MPV Immature Gran % (Auto) Neut % (Auto) Lymph % (Auto) Nuckolls % (Auto) Eos % (Auto) Baso % (Auto) Neut # (Auto) Lymph # (Auto) Nuckolls # (Auto) Eos # (Auto) Baso # (Auto) Immature Gran # (Auto) RBC Morphology Hypochromasia Basophilic Stippling Sample Site Art Line POC pH 7.39 POC pCO2 50 H POC pO2 60 L POC HCO3 30 H POC Total CO2 32 H POC Base Excess 5.0 H ABG pH (Temp Correct) 7.394 ABG pCO2 (Temp Corrct 50 H POC ABG pO2 at Pt Temp 59 POC ABG O2 Sat 90.0 Elder Test NA O2 Delivery Device Ventilator POC O2 Rate 12 Minute Ventilation 8.1 POC FiO2 40 Tidal Volume 450 PEEP 5 POC Sodium 142 Sodium 140 POC Potassium 3.6 Potassium 3.8 Chloride 106 Carbon Dioxide 31 Anion Gap 3.0 BUN 77 H Creatinine 1.98 H Est Cr Clr Drug Dosing 47.2 Est GFR ( Amer) 38.5 Est GFR (Non-Af Amer) 33.2 BUN/Creatinine Ratio 38.7 H Glucose 129 H POC Glucose Calcium 8.6 Phosphorus 3.9 Magnesium 2.7 H Medications Administered Current Inpatient Medications Acetaminophen (Acetaminophen 325 Mg Tab) 650 mg PO Q4H PRN PRN Reason: Pain or Fever Stop: 09/25/20 19:48 Last Admin: 08/29/20 20:53 Dose: 650 mg Documented by: Al Hydrox/Mg Hydrox/Simethicone (Aluminum/Magnesium Susp 30 Ml Udc) 15 ml PO Q4H PRN PRN Reason: Dyspepsia Stop: 09/25/20 19:48 Albuterol (Albuterol Hfa 8 Gm Inhaler) 1 puffs INH QID PRN PRN Reason: sob Stop: 09/25/20 20:03 Last Admin: 08/27/20 14:45 Dose: 1 puffs Documented by: Ascorbic Acid (Ascorbic Acid 500 Mg Tab) 250 mg PO DAILY CONNIE Stop: 09/26/20 08:59 Last Admin: 08/30/20 08:31 Dose: 250 mg Documented by: Aspirin (Aspirin 81 Mg Chew) 81 mg NG DAILY CONNIE Stop: 09/28/20 10:59 Last Admin: 08/30/20 08:34 Dose: 81 mg Documented by: Atorvastatin Calcium (Atorvastatin 40 Mg Tab) 40 mg PO HS CONNIE Stop: 09/25/20 20:59 Last Admin: 08/30/20 20:21 Dose: 40 mg Documented by: Carvedilol (Carvedilol 12.5 Mg Tab) 12.5 mg PO BID CONNIE Stop: 09/30/20 08:59 Cetirizine HCl (Cetirizine Hcl 10 Mg Tablet) 5 mg PO DAILY CONNIE Stop: 09/26/20 08:59 Last Admin: 08/30/20 08:35 Dose: 5 mg Documented by: Clonidine HCl (Clonidine Hcl 0.3 Mg Tab) 0.3 mg PO BID CONNIE Stop: 09/25/20 20:59 Last Admin: 08/30/20 20:21 Dose: 0.3 mg Documented by: Cyanocobalamin (Cyanocobalamin 500 Mcg Tablet (Vitamin B-12)) 1,000 mcg PO DAILY CONNIE Stop: 09/26/20 08:59 Last Admin: 08/30/20 08:35 Dose: 1,000 mcg Documented by: Dextrose (Dextrose 50% 50 Ml Syringe) 25 - 50 ml IV UD PRN; Protocol PRN Reason: Hypoglycemia Protocol Stop: 09/25/20 19:48 Fentanyl Citrate (Fentanyl Citrate 100 Mcg/2 Ml Vial) 50 mcg IV Q2H PRN PRN Reason: Pain Stop: 09/12/20 10:28 Last Admin: 08/30/20 17:06 Dose: 50 mcg Documented by: Ferrous Sulfate (Ferrous Sulfate 325 Mg Tab) 325 mg PO DAILY CONNIE Stop: 09/26/20 08:59 Last Admin: 08/31/20 07:40 Dose: Not Given Documented by: Finasteride (Finasteride 5 Mg Tab) 5 mg PO DAILY CONNIE Stop: 09/26/20 08:59 Last Admin: 08/31/20 07:41 Dose: Not Given Documented by: Glucagon (Glucagon For Inj 1 Mg Vial) 1 mg SQ UD PRN; Protocol PRN Reason: Hypoglycemia Protocol Stop: 09/25/20 19:48 Glucose (Glucose 10 Tabs/Tube) 4 - 8 tabs PO UD PRN; Protocol PRN Reason: Hypoglycemia Protocol Stop: 09/25/20 19:48 Glucose (Glucose 40% Gel 15 Gm Tube) 15 - 30 gm PO UD PRN; Protocol PRN Reason: Hypoglycemia Protocol Stop: 09/25/20 19:48 Heparin Sodium (Porcine) (Heparin Sod 5,000 Unit/0.5 Ml Vial) 7,500 units SQ Q8 CONNIE Stop: 09/27/20 21:59 Last Admin: 08/31/20 06:29 Dose: 7,500 units Documented by: Hydralazine HCl (Hydralazine Tab 50 Mg Tab) 100 mg PO TID CONNIE Stop: 09/25/20 20:59 Last Admin: 08/30/20 20:21 Dose: 100 mg Documented by: Hydralazine HCl (Hydralazine Hcl 20 Mg/Ml Vial) 10 mg IV Q6H PRN PRN Reason: for SBP above 170 Stop: 09/25/20 19:48 Last Admin: 08/30/20 18:22 Dose: 10 mg Documented by: Furosemide 40 mg/ Syringe 4 mls @ 4 mls/min IV BID CONNIE Stop: 09/25/20 20:59 Last Admin: 08/29/20 10:22 Dose: Not Given Documented by: Propofol (Diprivan) 1,000 mg in 100 mls @ 20.895 mls/hr IV .Q4H48M CONNIE; Protocol Stop: 09/02/20 05:29 Last Admin: 08/31/20 07:37 Dose: Not Given Documented by: Ampicillin Sodium/Sulbactam Sodium 1,500 mg/ Sodium Chloride 104 mls @ 200 mls/hr IV Q6H CONNIE; Protocol Stop: 09/01/20 17:29 Last Infusion: 08/31/20 07:11 Dose: Infused Documented by: Insulin Aspart (Insulin Aspart 100 Units/Ml 3 Ml Pen) 0 units SC Q4 CONNIE; Protocol Stop: 09/28/20 11:59 Last Admin: 08/31/20 05:20 Dose: 3 units Documented by: Insulin Glargine (Insulin Glargine Solostar 100 Units/Ml 3 Ml Pen) 0 units SC BID CONNIE; Protocol Stop: 09/29/20 20:59 Last Admin: 08/30/20 20:22 Dose: 25 units Documented by: Lansoprazole (Lansoprazole 30 Mg Soltab) 30 mg NG QAM CONNIE Stop: 09/28/20 10:59 Last Admin: 08/30/20 08:34 Dose: 30 mg Documented by: Lisinopril (Lisinopril 40 Mg Tab) 40 mg PO DAILY CONNIE Stop: 09/26/20 08:59 Last Admin: 08/30/20 08:32 Dose: 40 mg Documented by: Magnesium Hydroxide (Magnesium Hydroxide Susp 30 Ml Udc) 30 ml PO Q12H PRN PRN Reason: Constipation Stop: 09/25/20 19:48 Midazolam HCl (Midazolam Hcl 1 Mg/Ml 2ml Vial) 1 mg IV Q2H PRN PRN Reason: RASS goal -1 Stop: 09/28/20 21:11 Last Admin: 08/30/20 03:45 Dose: 1 mg Documented by: Miscellaneous (Carbohydrates For Hypoglycemia ) 15 - 30 gm PO UD PRN PRN Reason: Hypoglycemia Protocol Stop: 09/25/20 19:48 Last Admin: 08/28/20 01:58 Dose: 30 gm Documented by: Miscellaneous Information (Pharmacy Glycemic Mgmt Consult) 1 ea N/A UD PRN; Protocol PRN Reason: Consult Stop: 09/25/20 20:02 Nutritional Formula (Peptamen Intense Vhp 1.0 Angel 1,000 Ml Bag) 1,000 ml OG UD [facility]; Protocol Stop: 09/29/20 15:14 Last Admin: 08/30/20 15:41 Dose: 1,000 ml Documented by: Ondansetron HCl (Ondansetron Inj 2 Mg/Ml 2 Ml Vial) 4 mg IV Q6H PRN PRN Reason: Nausea Stop: 09/25/20 19:48 Polyethylene Glycol (Polyethylene (Miralax) 17 Gm Pack) 17 gm PO DAILY PRN PRN Reason: Constipation Stop: 09/25/20 19:48 Propofol (Propofol Bolus From Bag) 20 mg IV Q5M PRN PRN Reason: Sedation Stop: 09/02/20 05:23 Last Admin: 08/30/20 06:00 Dose: 20 mg Documented by: Sterile Water (Tube Feeding Water Flush) 30 ml OG Q4 CONNIE Stop: 08/09/21 15:59 Last Admin: 08/31/20 05:21 Dose: 30 ml Documented by: Terazosin HCl (Terazosin Hcl 5 Mg Cap) 5 mg PO DAILY CONNIE Stop: 09/26/20 08:59 Last Admin: 08/30/20 08:33 Dose: 5 mg Documented by: Vitamin D (Cholecalciferol 1,000 Units 25 Mcg Tab) 1,000 units PO DAILY CONNIE Stop: 09/26/20 08:59 Last Admin: 08/30/20 08:33 Dose: 1,000 units Documented by:
--- NOTE | 2020-08-31 09:44 | Procedure Note ---
Procedure Note Date of Service August 31, 2020 PREOPERATIVE DIAGNOSIS: RLL atelectasis with increasing oxygen need POSTOPERATIVE DIAGNOSIS: RLL mucous plugging PROCEDURE PERFORMED: Flexible fiberoptic bronchoscopy with BAL COMPLICATIONS: None. INDICATION: As above PROCEDURE: Emergent consent was applied. Patient was already intubated. He was 100% FiO2 and PEEP was at 5. The patient had appropriate oxygen, blood pressure, heart rate, and respiratory rate monitoring applied and monitored continuously throughout the procedure. Subsequent to this, the patient was premedicated with 75 MCG of fentanyl and was given 20mg of propofol during the procedure. Bronchoscope was advanced to the ETT. Additional topical anesthesia with 1% lidocaine was applied to the trachea and jay. The trachea appeared normal. The bronchoscope was then advanced through the jay, which was sharp. The scope was then advanced into the right main stem and each segment, subsegement in the right upper lobe, right middle lobe and right lower lobe were visualized. Bloody secretion was appreciated in the right main going into the right lower. There were suctioned out. There were no other findings including evidence of mass, anatomic distortions, or hemorrhage. The bronchoscope was subsequently withdrawn and advanced into the left john nstem. Bloody secretions were again appreciated which were suctioned out. Left upper lobe 8 segment and sub-segment looked clear. The bronchoscope was then wedged in the right lower lobe and bronchoalveolar lavage samples were obtained. 60 ml of saline was instilled and 25 ml of fluid was aspirated back.The bronchoscope was withdrawn and the area was suctioned clear. The bronchoscope was then withdrawn to the mainstem. The area was suctioned clear. The bronchoscope was then withdrawn. The patient tolerated the procedure well without evidence of desaturation or complications. Bronchoalveolar lavage samples were sent for cell count, Gram stain and bacterial culture, AFB culture and smear, fungal culture and smear and cytology. Recommendations: Follow-up chest x-ray. Coding CPT Codes Pulmonary/Thoracic - Pulmonary and Thoracic: 41056 Bronchoscopy, clear airways ([id number]) Pulmonary/Thoracic - Pulmonary and Thoracic: 16361 Dx bronchoscopy/BAL ([id number]) [facility] [place] Procedure Codes (Charges) Pulmonary/Thoracic Procedure 1: Pulmonary and Thoracic: 80292 Bronchoscopy, clear airways Procedure 2: Pulmonary and Thoracic: 70622 Dx bronchoscopy/BAL
[2020-08-31] MEDS: INSULIN GLARGINE SOLOSTAR 100 UNITS/ML 3 ML PEN SC SCH (09:46)
--- NOTE | 2020-08-31 09:50 | Hospitalist Progress Note ---
Date of Service August 31, 2020 Assessment & Plan (1) Cardiac arrest: Ventilator dependent respiratory failure/cardiac arrest/anoxic encephalopathy Status post CODE BLUE/cardiac arrest Possible hypoxia/CO2 retention, decompensated CHF: Patient has been refusing BiPAP, Per record patient was noted to be agitated confused, later became apneic and went to a ASYSTOLE Pulse was regained after more than 20 minutes of CPR remains intubated , possible anoxic encephalopathy appreciate input from Neurology Overall prognosis remains grim, CT head noncontrast done today showed no acute change Plan for EEG on Tuesday Hypoxemic respiratory failure acute on chronic: With hypercarbia, respiratory acidosis. Combination of CO2 retention history of severe obstructive need sleep apnea, worsening of congestive heart failure due to hypoxemia. Aspiration before or during CODE BLUE. Status post bronc by cvor nurse Overall prognosis remains guarded, anoxic encephalopathy with persisted vegetative status Chest x-ray: Showed right lower lobe collapse, with increased pleural secretion bilaterally Repeat bronc done today: 08/31/2020: Showed bloody secretions on right lower lobe, Overall prognosis is poor (2) Diabetes: Glycemic management per ICU protocol (3) CKD (chronic kidney disease): -Acute renal failure on CKD stage IV. due to cardiac arrest, hypoxemic respiratory failure. Renal function gradually improved, appear to be at baseline LACTIC ACIDOSIS : due to cardiac arrest , respiratory failure /hypoxia cont vent management as per ICU team (4) Obesity, Class III, BMI 40-49.9 (morbid obesity): -BMI of 46.8,with severe FLETCHER has been non compliant with Bipap -possible leading to hypercarbic respiratory failure /cardiac arrest due to severe hypoxemia (5) Venous stasis ulcers of both lower extremities: present on admission wound care consulted (6) Chronic venous insufficiency: s/p sclerotherapy by Dr. Villalba's (7) MGUS (monoclonal gammopathy of unknown significance): - Received Retacrit injection on 08/19/2020 and 08/26/2020, pt hgb was 7.6 as an outpatient, baseline is 8.0, . code status : full code /overall prognosis very poor, limited or no chance of recovery in future cardiac or respiratory failure while on vent. No acceleration of care, DNR and DNI would be appropriate Will discuss with family members regarding addressing CODE STATUS over all prognosis remains guarded Discussed with patient's family daughter and yesterday, do not want patient to be on prolonged life support if there is no reasonable chance of recovery of cognitive status By : Patient would never want to be kept alive in a persistent vegetative status Admission and Anticipated Discharge Date Admission Date: August 26, 2020 Subjective Patient seen in ICU room 102 bed 1 Follow-up visit for vent dependent respiratory failure/cardiac arrest/anoxic encephalopathy: Patient remains mechanically intubated/sedated Patient's neurological status remains unchanged, No purposeful movements, Chest x-ray showed right lower lobe collapse, underwent bronchoscopy by critical care team Review of Systems Review of Systems: Unobtainable due to endotracheal tube and Unobtainable due to reduced consciousness (Unresponsive) Physical Exam Constitutional: WD/WN, vitals as above + morbidly obese (Unresponsive on mechanical ventilation) Eyes: Pupils mid dilated, minimally reactive ENMT: ET tube present Respiratory: Auscultation: + diminished lung sounds, + crackles, + rales and + wheezes Cardiovascular: Rate/Rhythm: + irregularly irregular Extremities: + edema (Bilateral +3 pitting edema, chronic venous stasis changes,) Gastrointestinal (Abdomen): Percussion/Palpation: abdomen soft Neurologic: + obtunded (Not responding to painful stimuli, not on any sedation) Results & Data Results & Data ([facility]) Vital Signs (Past 12 Hours) Vital Signs Pulse Resp BP Pulse Ox 08/31/20 07:50 79 25 H 93 08/31/20 05:35 76 19 88 L 08/31/20 04:00 190/61 H 08/31/20 02:13 77 31 H 91 08/31/20 00:00 153/56 H 08/30/20 22:38 74 27 H 94
--- NOTE | 2020-08-31 10:17 | XRay Report ---
XR chest 1V portable HISTORY: 70 years-old Male s/p bronch acute respiratory failure COMPARISON: Chest radiograph of same day at 6:18 AM TECHNIQUE: Portable AP view of the chest FINDINGS: Cardiac silhouette is enlarged. Endotracheal tube overlies the midline, 4.3 cm superior to the jay . Enteric tube courses below the diaphragm outside the [id number]. Pulmonary vascular congestion w ith persistent interstitial opacities. There is mild right hemidiaphragmatic elevation with progressi ve with right greater than left bibasilar opacities. Increased size of a small right and trace left p leural effusion. Degenerative changes of the shoulders and spine. IMPRESSION: 1. Lines and tubes as above. No pneumothorax. 2. Cardiomegaly with persistent pulmonary edema pattern. 2. Increased size of a small right and trace left pleural effusions with progressive bibasilar opacit ies. ACT 112: Negative or not required by law. The above report was generated using voice recognition software. It may contain grammatical, syntax o r spelling errors. Electronically signed by: Chase Galaviz M.D. 08/31/2020 10:15 AM
--- NOTE | 2020-08-31 11:33 | Neurology Progress Note ---
Date of Service August 31, 2020 Assessment & Plan (1) Anoxic encephalopathy: Anoxic encephalopathy. Patient's neurological examination is not significantly changed compared with yesterday although he exhibits less reflexive withdrawal of the limbs and did not have any posturing movements this morning. He has not had any anoxic myoclonus or seizure-like activity. Follow- up CT of the head this morning reveals no hemorrhage or significant interval change. Prognosis poor. Plan for EEG tomorrow morning. Consider obtaining brain MRI as well if patient able. Admission and Anticipated Discharge Date Admission Date: August 26, 2020 Subjective Follow-up for anoxic encephalopathy No significant inpatient neurological status since my assessment of him yesterday. He remains minimally responsive on the ventilator. Sedatives were temporarily held for my assessment of him this morning. No seizure activity has been observed overnight. He continues to exhibit intact brainstem reflexes including blink, oculocephalics, and gag. He continues to reflexively withdraw the limbs to noxious stimulation although much less vigorous withdrawal response this morning. Does not have any posturing movements today. He did have an up-to-date CT of the head completed earlier this morning that was negative for hemorrhage or acute process or any significant interval change compared with the previous head CT done on August 29. There is a stable chronic lacunar infarct within the left caudate nucleus as well as chronic microvascular ischemic disease. I reviewed the images as well as the radiologist's interpretation of this test and agree. Review of Systems Review of Systems: Unobtainable due to reduced consciousness Results & Data ([facility]) Vital Signs (Past 12 Hours) Vital Signs Pulse Resp BP Pulse Ox 08/31/20 07:50 79 25 H 93 08/31/20 05:35 76 19 88 L 08/31/20 04:00 190/61 H 08/31/20 02:13 77 31 H 91 08/31/20 00:00 153/56 H Exam (Neuro) Physical Exam: Examination findings are as above. Patient is unresponsive to voice and tactile stimulation. He exhibits minimal reflexive withdrawal of the limbs to noxious stimulation, no posturing movements observed. No abnormal spontaneous movements or myoclonic jerking of the limbs observed. Pupils are pinpoint bilaterally. Blink and oculocephalic reflexes are intact. Gag reflex intact. Coding Level of Care Code 23771 Subseq Hosp Care Lvl 2 Diagnoses Anoxic encephalopathy G93.1
--- NOTE | 2020-08-31 13:46 | Pharmacy Report ---
Pharmacy Glycemic Short Note 2 - Date of Service August 31, 2020 - Glycemic Short BSG Results (Last 24 hours): 08/30/20 08/30/20 08/30/20 16:02 20:08 23:18 Glucose POC Glucose 153 H 162 H 158 H 08/31/20 08/31/20 08/31/20 04:21 09:44 11:03 Glucose 129 H POC Glucose 149 H 162 H OUTPATIENT ANTIDIABETIC REGIMEN: * NPH 80 units SQ QAM, 20 units QPM * Regular insulin 54 units SQ QAM, 18 units SQ QPM * CF 18mg/dl/unit ASSESSMENT: 08/31/20 * Patient's BSGs yesterday were [phone] mg/dL. Fasting today was 149 mg/dL. * Patient received a total of 59 units of insulin with 50 units of basal insulin. * Tube feeds started yesterday. * Continue Lantus 50 units daily as this appears to keep a sufficient fasting BSG. * Continue weight-based stress of 2 Novolog as BSGs are stable. 08/29: * Patient transferred to the ICU post cardiac arrest and was intubated. BSGs elevated this morning in the 200s, likely as due to stress response. Given NPO status, will transition from NPH to lantus and q4 novolog. * Patient received a total of 103 units of insulin today, 65 of which were basal. 08/28 * Patient with hypoglycemia around 0200 today, BSG 56mg/dl * decrease PM NPH and reduce dose this morning x 1 day * Loosen CF/CR slightly to prevent further hypoglycemia 08/27 * 70 year old male admitted with SOB/volume overload, on basal bolus insulin as outpatient * Will continue NPH for basal and use Novolog for bolus insulin while inpatient * Patient had 10 units of NPH last night, fasting blood sugar 161mg/dl this morning * Prior to lunch blood sugar 205mg/dl, will tighten CF/CR and increase NPH doses * A1c 5.5%, likely experiencing hypoglycemia at home PLAN FOR INPATIENT GLYCEMIC CONTROL: * Basal insulin * Lantus 25 units BID * Bolus insulin * NovoLog per scale ACHS or Q4hrs while NPO * Goal Range: Low 110 mg/dL - High 140 mg/dL * Correction Factor: 15 mg/dL/unit * Nutritional / Prandial insulin per carb ratio of 1 unit per 5 grams CHO consumed PLAN FOR DISCHARGE: * A1c 5.5%, may be experiencing hypoglycemia at home, recommendations to be determined
--- NOTE | 2020-08-31 13:55 | Critical Care Progress Note ---
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 Earlier in the morning 08/29/2020 patient was found unresponsive, CODE BLUE was called and patient had CPR which lasted for approximately 20 minutes. Patient had wide complex tachycardia after getting ROSC. Neuro - Sedation: propofol Analgesia: fentanyl 50mcg q2h prn for discomfort on vent Status post cardiac arrest -- c/f anoxic encephalopathy * s/p CPR 15-20 min on 08/29 beginning at 0630 AM -- unclear exactly how long patient was hypoperfusing prior to CPR initiation *S/p hypothermia protocol, rhythm was wide-complex post resuscitation, s/p amiodarone drip * High likelihood of anoxic brain injury * Repeat CT head from today does not show any significant change * Continue propofol, fentanyl boluses for discomfort History of neuropathy noted, as well as history of Tineo's palsy. Notes that patient has chronic right-sided facial droop as well as right upper extremity weakness Cardiac - Cardiac Arrest As above Hypertension * Continue to re-add home antihypertensives: clonidine, hydralazine, lisinopril, torsemide 2D echo 08/27/2020: EF n 65 to 70%. Mild left ventricular hypertrophy. Grade 2 diastolic dysfunction. Respiratory - Ventilator dependent respiratory failure s/p cardiac arrest * Noted that patient has significant history of tobacco abuse, likely undiagnosed COPD without PFTs for review, pulmonary hypertension, COPD, HFpEF, also MGUS * Prior to being transferred to the ICU, patient's reason for presentation, shortness of breath, thought to be multifactorial nature, including all of these issues. Continue with ventilatory support Keep RASS -1 Daily sedation holidays and SBT's GI - *Continue with tube feeds RENAL/LYTES - -- MAGO Monitor BUN/creatinine Avoid nephrotoxic medications Strict ins and outs - Britton in place ENDO - -Patient has history of type 2 diabetes *ICU hyperglycemia protocol HEME - * Patient with notable history of MGUS, did receive Retacrit injection on 08/19 and 08/26. * Hemoglobin 7.6 as outpatient, baseline appears to be around 8. Monitor H&H ID - *Aspiration antibiotics given the copious phlegm coming from the ETT * Monitor temps INTEGUMENTARY - * Noted that patient has history of bilateral lower extremity venous stasis ulcers in context of peripheral arterial disease * Wound care previously consulted --Prophylaxis VTE: Heparin GI: Lansoprazole Lines: Left radial, peripheral Diet: Tube feeding Plan: In/out: In/out: +311 mL, urine output 825 Chest x-ray today shows worsening right lower lobe infiltrate and patient coming up with copious phlegm Continue with Unasyn. Resume 40 mg of Lasix on a daily basis Neurologically no significant change. Still having decerebrate posturing Repeat CT head did not show any significant change compared to before For EEG tomorrow. Prognosis poor Case was discussed with patient's family which included patient's as well as patient's daughter. Poor prognosis of the patient and no improvement in neurological status explained in depth. They were explained in layman's term the patient is not brain- but the upper complex function seems to be affected from cardiac arrest. They are planning to terminally extubate the patient later today or early tomorrow. All questions inquiries of the family were answered in depth. I have personally spent additional 58 minutes of critical care time in the direct management of this patient. This is a life/limb threatening event. This includes time spent evaluating patient, direct bedside care, chart review, placing orders, interpretation of diagnostic studies, discussion with consultants, patient, and/or family members regarding treatment decisions, as well as other required patient management activities. This time is exclusive of all separately billable procedures, and teaching time and separate from and in addition to any other critical care service time. (2) CHF (congestive heart failure): (3) MGUS (monoclonal gammopathy of unknown significance): (4) Anemia: (5) Shortness of breath: (6) Chronic venous insufficiency: (7) Lower extremity edema: (8) Venous stasis ulcers of both lower extremities: (9) Obstructive sleep apnea of adult: (10) HTN (hypertension): (11) Diabetes: (12) Venous insufficiency: (13) Tachy-jazlyn syndrome: (14) RBBB: (15) Neuropathy: (16) Gastroesophageal reflux disease: (17) Dyslipidemia: (18) CKD (chronic kidney disease): (19) BPH (benign prostatic hyperplasia): (20) Allergic rhinitis: (21) Obesity, Class III, BMI 40-49.9 (morbid obesity): Admission and Anticipated Discharge Date Admission Date: August 26, 2020 Subjective Patient seen and examined at bedside. No acute distress, no adverse events overnight. Patient occasionally does get very tachycardic and tachypneic with high blood pressure He is getting fentanyl as needed as well as propofol. Afebrile. Review of Systems Review of Systems: Unobtainable due to mental health condition Physical Exam Physical Exam: Constitutional: Intubated HEENT: PERRLA, positive ETT Respiratory system: Decreased air entry bilaterally, positive crackles bilateral lower lobes, no wheeze, no rhonchi CVS: S1-S2 positive, no murmurs or gallops, distant heart sounds Abdomen: Soft, nontender, nondistended, positive bowel sounds x4, obese Extremities: +2 pulses bilaterally radialis/ dorsalis pedis, no cyanosis, +1 pitting edema bilateral lower extremity Neuro: Positive corneal, patient breathing over the vent, not following commands, decerebrate posturing, positive Babinski bilateral Psych: Unable to assess G/U: Positive Britton Skin: no rashes, warm and dry Lymphatic: no cervical or axillary lymphadenopathy Results & Data Results & Data ([facility]) Vital Signs (Past 12 Hours) Vital Signs Temp Pulse Resp BP Pulse Ox 08/31/20 13:14 36.7 C 64 133/58 L 96 08/31/20 12:14 36.6 C 64 121/54 L 94 08/31/20 11:14 63 23 94 08/31/20 11:10 36.6 C 71 159/45 H 100 08/31/20 10:14 36.5 C 73 151/63 H 100 08/31/20 09:00 36.8 C 84 90 08/31/20 08:39 91 08/31/20 07:56 82 147/75 H 91 08/31/20 07:50 79 25 H 93 08/31/20 05:35 76 19 88 L 08/31/20 04:00 190/61 H 08/31/20 02:13 77 31 H 91 08/31/20 04:21 08/31/20 04:21 Coding Level of Care Code Critical Care 1st 30-74 mins Diagnoses Cardiac arrest I46.9 CHF (congestive heart failure) I50.9 Heart failure chronicity: acute on chronic Heart failure type: unspecified MGUS (monoclonal gammopathy of unknown significance) D47.2 Anemia D64.9 Anemia type: unspecified type Shortness of breath R06.02 Chronic venous insufficiency I87.2 Lower extremity edema R60.0 Venous stasis ulcers of both lower extremities I83.019; I83.029; L97.919; L97.929 Obstructive sleep apnea of adult G47.33 HTN (hypertension) I10 Diabetes E11.9 Venous insufficiency I87.2 Tachy-jazlyn syndrome I49.5 RBBB I45.10 Neuropathy G62.9 Gastroesophageal reflux disease K21.9 Dyslipidemia E78.5 CKD (chronic kidney disease) N18.9 BPH (benign prostatic hyperplasia) N40.0 Allergic rhinitis J30.9 Obesity, Class III, BMI 40-49.9 (morbid obesity) E66.01 Time Spent (min) 58 (1) CHF (congestive heart failure) Heart failure chronicity: acute on chronic Heart failure type: unspecified Qualified Code(s): I50.9 - Heart failure, unspecified (2) Anemia Anemia type: unspecified type Qualified Code(s): D64.9 - Anemia, unspecified
[2020-08-31] MEDS ORDERED: FUROSEMIDE 40 MG in SYRINGE 0 ML IV SCH (14:00)
[2020-08-31] MEDS ORDERED: MoRPHine SULFATE 4 MG/ML 1 ML CARP\\VIAL IV PRN (15:41)
[2020-08-31] MEDS ORDERED: MoRPHine SULFATE 2 MG/ML CARP IV PRN (15:41)
[2020-08-31] MEDS ORDERED: STAT IV Infusion **Titration per Protocol STA (15:41)
[2020-08-31] MEDS ORDERED: MoRPHine SULF/NSS 250 MG/250 ML BTL IV SCH (16:00)
[2020-08-31] MEDS ORDERED: LORazepam 2 MG/4 ML VIAL ONE ×2 (16:29→16:34)
[2020-08-31] MEDS ORDERED: LORazepam 2 MG/4 ML VIAL IV PRN (16:41)
[2020-08-31] MEDS ORDERED: LORazepam 2 MG/4 ML VIAL IV STA (16:41)
[2020-08-31] MEDS ORDERED: ATROPINE SULFATE 1% OP SOLN 5 ML BTL SL PRN (16:43)
[2020-08-31] MEDS ORDERED: ONDANSETRON 4 MG OD TAB SL PRN (16:43)
[2020-08-31] MEDS ORDERED: ONDANSETRON INJ 2 MG/ML 2 ML VIAL IV PRN (16:43)
--- NOTE | 2020-08-31 17:07 | Communication Note ---
Date of Service: August 31, 2020 Patient's , and daughter, and [id number] present at bedside Had a meaningful discussion with critical care/parts delivery driver earlier. Feels that it is time to have patient take off the breathing machine, and keep him comfortable and let him pass away naturally. Patient was already changed to CODE STATUS DNR/DNI IV morphine drip ordered by parts delivery driver Patient terminally extubated, 16:10 pm I came to check on the patient after extubation, Started on IV morphine drip at 10 mg/h, given IV morphine bolus before Patient is very tachypneic, respiratory distress, with gurgling sound patient was given 2 mg IV Ativan, with minimal improvement, Repeat IV Ativan given in 2 mg dose, increase morphine drip to 10 mg/h Patient's respiratory distress improved, patient appears to be more calm and comfortable Family remain remained at bedside, Condolences provided, Patient remains in comfort care, terminal status hospice Continue IV morphine for extremity distress air hunger, ordered sublingual atropine drops as needed for increased secretions Cardiac monitoring discontinued, patient is on med surge status. Too unstable to transfer to a different floor/room, as patient can in the next few hours Continue to provide comfort care in room 102 Neha Glover MD
--- NOTE | 2020-08-31 17:45 | Death Pronouncement Note ---
Date of Service August 31, 2020 Pronouncement Note Admission Date Admission Date: August 26, 2020 Patient ceased breathing, was bradycardic on monitor became asystolic at 17:31 PM Patient examined at bedside, unresponsive, Pupils are bilateral dilated nonreactive No audible breath sound, On auscultation no heart sounds or breath sound All reflexes are absent Patient was DNR/DNI Patient was terminally extubated, started on IV morphine drip as part of the c omfort care while on comfort measure Patient's family, daughter and were present at bedside Condolences provided Time of 1731 PM Contributing Factors (1) Cardiac arrest: (2) CHF (congestive heart failure): (3) MGUS (monoclonal gammopathy of unknown significance): (4) Anemia: (5) Shortness of breath: (6) Chronic venous insufficiency: (7) Lower extremity edema: (8) Venous stasis ulcers of both lower extremities: (9) Obstructive sleep apnea of adult: (10) HTN (hypertension): (11) Diabetes: (12) Venous insufficiency: (13) Tachy-jazlyn syndrome: (14) RBBB: (15) Neuropathy: (16) Gastroesophageal reflux disease: (17) Dyslipidemia: (18) CKD (chronic kidney disease): (19) BPH (benign prostatic hyperplasia): (20) Allergic rhinitis: (21) Obesity, Class III, BMI 40-49.9 (morbid obesity): Additional Data Attending physician: Neha Glover MD
--- NOTE | 2020-08-31 17:46 | Discharge Summary ---
Date of Service August 31, 2020 Admission HPI Per Admitting Provider This is a 70-year-old male with PMHx of HTN, HLD, obesity with BMI of 46.8, history of SVT, history of previous CVA, PAD, venous stasis ulcerations of BLE, DM type II, neuropathy, MGUS, FLETCHER noncompliant with BiPAP, and GERD who presents with shortness of breath. Patient reports that this has been going on for several months in general, but has worsened specifically within the past week. Previously had has been able to ambulate 20 to 30 feet however at this point is unable to go more than a few steps without feeling significantly winded. Patient reports feeling somewhat swollen in his abdomen more so than his feet. He reports never wearing supplemental O2, and is noncompliant with BiPAP. Patient has been supposed to follow-up with pulmonary as an outpatient however has not had an appointment. He is taking all his medications as routinely scheduled including his torsemide 100 mg BID, although due to the amount of appointments he had today missed his afternoon dose. Patient was in for routine follow-up for chronic lower extremity wounds at the wound clinic and due to his hypoxia of 88% he was sent here to the ER for further work-up. Patient is breathing heavily while sitting at bedside and re ports that he breathes easier when his feet are down on the ground and he leans forward in a recliner chair. Patient is unaware of weight gain, and reports he weighed 306 lbs naked at home on his scale, and 311 at clinic today. He denies high sodium diet, drinks fluid as he feels thirsty, does not routinely exercise. Pt has been following with Dr. Villalba recently for sclerotherapy, having this performed 08/13/2020 due to his recurrent bilateral lower extremity wounds. He feels that his legs are less swollen since having this procedure. There are 2 ulcerations on lateral sides of both his legs which she has been following with the wound clinic for. Principal Diagnosis Patient Cardiac arrest, vent dependent respiratory failure Anoxic encephalopathy Acute on chronic decompensated CHF with diastolic dysfunction Severe obstructive sleep apnea Discharge Exam Patient , see the note Discharge Data Allergies Allergy/AdvReac Type Severity Reaction Status Date / Time No Known Allergies Allergy Verified 08/26/20 14:54 Consultations 08/26/20 17:37 ED Decision to Admit Stat 08/26/20 19:49 Consult Cardiology Routine 08/29/20 08:32 Consult Upholstery Auto Trimmer Routine 08/30/20 07:38 Consult Neurology Routine Ordered Studies 08/29/20 07:30 CT head/brain wo con Stat 08/29/20 07:50 CT abd pelvis wo con Stat CT chest diagnostic wo con Stat 08/31/20 07:00 CT head/brain wo con Routine Hospital Course (1) Cardiac arrest: And while on comfort care This is a 70-year-old male with morbid obesity, severe obstructive sleep apnea, noncompliant with BiPAP machine, admitted with decompensated CHF volume overload., Patient was diuresed with IV Lasix, Refused BiPAP every night, Developed hypoxemic respiratory failure acute on chronic: With hypercarbia, respiratory acidosis. Combination of CO2 retention history of severe obstructive need sleep apnea, worsening of congestive heart failure due to hypoxemia. Had cardiac arrest on floor, required 20 minutes of CPR to regained calls Aspiration before or during CODE BLUE. Patient was mechanically ventilated, remains in ICU "Bronchoscopy twice to clean up respiratory secretions Patient remains unresponsive with decerebrate posturing Anoxic encephalopathy Neurology evaluated, Possible persistive vegetative status given severe anoxic encephalopathy Patient's , and children wanted to withdraw care and transition to comfort measure Terminally extubated after family request, started on morphine drip, received intermittent dose of IV Ativan for tachypnea discomfort Patient Family members were not present at bedside Cause of : Ventilator dependent respiratory failure/cardiac arrest/anoxic encephalopathy (2) Anoxic encephalopathy: Total Time Total Time Spent Total Time Spent (In Minutes): 30 minutes Total Time Includes: Examination of the Patient Discharge Plan Discharge Items Patient Disposition: Discharge Diagnosis: Cardiac arrest Vent dependent respiratory failure anoxic encephalopathy Acute on chronic CHF with diastolic dysfunction Severe obstructive sleep apnea Addtl Attending Provider Instructions: Patient was terminally extubated per family request was started on IV morphine drip and transition to comfort care Patient while on comfort care hospice Family members were present at bedside
== END 2020-08-31 18:17 | disposition expired | DRG 292 ==
LOC: ED 15:23 → 2S 15:23 → SUATTDRO 19:53 → 1E 08-29 07:01